=== PATIENT | female | born 1970 | race Caucasian/White ===

== ENCOUNTER 2025-03-14 07:26 | Outpatient (CLI) | payer OTHER, SELFPAY ==
--- OUTSIDE RECORDS SUMMARY | 2025-03-14 07:33 | XMS_ITS | Encounter Summary ---
Author Organization [employer] Address [address] [place] [address] Care Team Providers Care Medical Device Sales Consultant Name Role Phone Asher Hammonds MD Primary Care Provider Unavailab le Encounter Details Date Type Department Care Team (Late st Contact Info) Description 01/27/2000 Outpatient Historical [facility] Meka Jacome Social History Tobacco Use Types Packs/Day Years Used Date Smoking Tobacco: Never Assessed Comments Unknown Sex and Gender Information Value Date Recorded Sex Assigned at Not on file Legal Sex Female 5:11 AM MULTIMEDIA EDUCATIONAL SPECIALIST Gender Identity Not on file Sexual Orientation Not on file documented as of this encounter Plan of Treatment Not on file documented as of this encounter Visit Diagnoses Not on filedocumented in this encounter Care Teams Medical Device Sales Consultant Relationship Specialty Start Date End Date Asher Hammonds MD PCP - General 10/04/12 documented as of this encounter
--- OUTSIDE RECORDS SUMMARY | 2025-03-14 07:33 | XMS_ITS | Encounter Summary ---
Author Organization [employer] Address [address] [place] [address] Care Team Providers Care Real Estate Assistant Name Role Phone Asher Hammonds MD Primary Care Provider Unavailab le Encounter Details Date Type Department Care Team (Latest Contact Info) Description 08/14/2000 Outpatient Historical [facility] Bran Lomeli MD [address] [place] [id number] Obesity, unspecified (Primary Dx) Social History Tobacco Use Types Packs/Day Years Used Date Smoking Tobacco: Never Assessed Comments Unknown Sex and Gender Information Value Date Recorded Sex Assigned at Not on file Legal Sex Female 5:11 AM ASSORTER LAUNDRY Gender Identity Not on file Sexual Orientation Not on file documented as of this encounter Plan of Treatment Not on file documented as of this encounter Visit Diagnoses Diagnosis Obesity, unspecified- Primary documented in this encounter Care Teams Real Estate Assistant Relationship Specialty Start Date End Date Asher Hammonds MD PCP - General 10/04/12 documented as of this encounter
--- OUTSIDE RECORDS SUMMARY | 2025-03-14 07:33 | XMS_ITS | Encounter Summary ---
Author Organization [facility] Address [address] [place] [address] Care Team Providers Care Lithograph Designer Name Role Phone Asher Hammonds MD Primary Care Provider Unavailab le Encounter Details Date Type Department Care Team (Late st Contact Info) Description 10/24/2005 Outpatient Historical [facility] Medicine [place] [address] [address] [address] [place] [address] Asher Hammonds MD NO ADDRESS ON FILE Social History Tobacco Use Types Packs/Day Years Used Date Smoking Tobacco: Never Assessed Comments Unknown Sex and Gender Information Value Date Recorded Sex Assigned at Not on file Legal Sex Female 5:11 AM HEEL SCORER Gender Identity Not on file Sexual Orientation Not on file documented as of this encounter Last Filed Vital Signs Vital Sign Reading Time Taken Comments Blood Pressure 110/50 10/24/2005 3:01 PM HEEL SCORER Pulse 84 10/24/2005 3:01 PM HEEL SCORER Temperature 36.9 C (98.4 F) 10/24/2005 3:01 PM HEEL SCORER Respiratory Rate 16 10/24/2005 3:01 PM HEEL SCORER Oxygen Saturation - - Inhaled Oxygen Concentration - - Weight 80.3 kg (177 lb) 10/24/2005 3:01 PM HEEL SCORER Height 154.9 cm (5' 1) 10/24/2005 3:01 PM HEEL SCORER Body Mass Index 33.44 10/24/2005 3:01 PM HEEL SCORER documented in this encounter Plan of Treatment Not on file documented as of this encounter Visit Diagnoses Not on filedocumented in this encounter Care Teams Lithograph Designer Relationship Specialty Start Date End Date Asher Hammonds MD PCP - General 10/04/12 documented as of this encounter
--- OUTSIDE RECORDS SUMMARY | 2025-03-14 07:33 | XMS_ITS | Encounter Summary ---
Author Organization [facility] Address [address] [place] [address] Care Team Providers Care Softlines Supervisor Name Role Phone Asher Hammonds MD Primary Care Provider Unavailab le Encounter Details Date Type Department Care Team (Late st Contact Info) Description 11/27/2000 Outpatient Historical [facility] Medicine [place] [address] [place] [address] [address] [place] [address] Asher Hammonds MD NO ADDRESS ON FILE Social History Tobacco Use Types Packs/Day Years Used Date Smoking Tobacco: Never Assessed Comments Unknown Sex and Gender Information Value Date Recorded Sex Assigned at Not on file Legal Sex Female 5:11 AM SUMMER INTERNSHIP Gender Identity Not on file Sexual Orientation Not on file documented as of this encounter Plan of Treatment Not on file documented as of this encounter Visit Diagnoses Not on filedocumented in this encounter Care Teams Softlines Supervisor Relationship Specialty Start Date End Date Asher Hammonds MD PCP - General 10/04/12 documented as of this encounter
--- OUTSIDE RECORDS SUMMARY | 2025-03-14 07:33 | XMS_ITS | Encounter Summary ---
Author Organization [facility] Address [address] [place] [address] Care Team Providers Care Quality System Manager Name Role Phone Asher Hammonds MD Primary Care Provider Unavailab le Encounter Details Date Type Department Care Team (Late st Contact Info) Description 10/13/[address] [facility] Family Medicine [place] [address] [facility] [address] [place] [address] Dillan Chowdhury MD [address] [place] [address] Social History Tobacco Use Types Packs/Day Years Used Date Smoking Tobacco: Never Assessed Comments Unknown Sex and Gender Information Value Date Recorded Sex Assigned at Not on file Legal Sex Female 5:11 AM CELERY CUTTER Gender Identity Not on file Sexual Orientation Not on file documented as of this encounter Plan of Treatment Not on file documented as of this encounter Visit Diagnoses Not on filedocumented in this encounter Care Teams Quality System Manager Relationship Specialty Start Date End Date Asher Hammonds MD PCP - General 10/04/12 documented as of this encounter
--- OUTSIDE RECORDS SUMMARY | 2025-03-14 07:33 | XMS_ITS | Encounter Summary ---
Author Organization [employer] Address [address] [place] [address] Care Team Providers Care Raised Printer Name Role Phone Asher Hammonds MD Primary Care Provider Unavailab le Encounter Details Date Type Department Care Team (Late st Contact Info) Description 10/11/2000 Emergency [facility] Ulices Fitzgerald MD [address] [place] [address] [place] [address] Unspecified essential hypertension (Primary Dx) Social History Tobacco Use Types Packs/Day Years Used Date Smoking Tobacco: Never Assessed Comments Unknown Sex and Gender Information Value Date Recorded Sex Assigned at Not on file Legal Sex Female 5:11 AM ADVERTISING WRITER Gender Identity Not on file Sexual Orientation Not on file documented as of this encounter Plan of Treatment Not on file documented as of this encounter Visit Diagnoses Diagnosis Unspecified essential hypertension- Primary documented in this encounter Care Teams Raised Printer Relationship Specialty Start Date End Date Asher Hammonds MD PCP - General 10/04/12 documented as of this encounter
--- OUTSIDE RECORDS SUMMARY | 2025-03-14 07:33 | XMS_ITS | Encounter Summary ---
Author Organization [email or web address] Address [address] [place] [address] Care Team Providers Care Beverage Specialist Name Role Phone Asher Hammonds MD Primary Care Provider Unavailab le Encounter Details Date Type Department Care Team (Late st Contact Info) Description 04/09/1999 Outpatient Historical [facility] David Yasmani NO ADDRESS ON FILE Social History Tobacco Use Types Packs/Day Years Used Date Smoking Tobacco: Never Assessed Comments Unknown Sex and Gender Information Value Date Recorded Sex Assigned at Not on file Legal Sex Female 5:11 AM INNER DIAMETER GRINDER TOOL Gender Identity Not on file Sexual Orientation Not on file documented as of this encounter Plan of Treatment Not on file documented as of this encounter Visit Diagnoses Not on filedocumented in this encounter Care Teams Beverage Specialist Relationship Specialty Start Date End Date Asher Hammonds MD PCP - General 10/04/12 documented as of this encounter
--- OUTSIDE RECORDS SUMMARY | 2025-03-14 07:33 | XMS_ITS | Encounter Summary ---
Author Organization [employer] Address [address] [place] [address] Care Team Providers Care Staff Home Therapy Rn Name Role Phone Asher Hammonds MD Primary Care Provider Unavailab le Encounter Details Date Type Department Care Team (Late st Contact Info) Description 08/10/2000 Emergency [facility] EM[facility] WASH Loi Lewis MD NO ADDRESS ON FILE Bronchitis, not specified as acute or chronic (Primary Dx) Social History Tobacco Use Types Packs/Day Years Used Date Smoking Tobacco: Never Assessed Comments Unknown Sex and Gender Information Value Date Recorded Sex Assigned at Not on file Legal Sex Female 5:11 AM LIFE SKILLS SPECIALIST Gender Identity Not on file Sexual Orientation Not on file documented as of this encounter Plan of Treatment Not on file documented as of this encounter Visit Diagnoses Diagnosis Bronchitis, not specified as acute or chronic- Primary documented in this encounter Care Teams Staff Home Therapy Rn Relationship Specialty Start Date End Date Asher Hammonds MD PCP - General 10/04/12 documented as of this encounter
--- OUTSIDE RECORDS SUMMARY | 2025-03-14 07:33 | XMS_ITS | Encounter Summary ---
Author Organization [facility] Address [address] [place] [address] Care Team Providers Care Stone Polisher Hand Name Role Phone Asher aHmmonds MD Primary Care Provider Unavailab le Encounter Details Date Type Department Care Team (Late st Contact Info) Description 11/15/2000 Outpatient Historical [facility] Medicine [place] [address] [place] [address] [address] [place] [address] Asher Hammonds MD NO ADDRESS ON FILE Social History Tobacco Use Types Packs/Day Years Used Date Smoking Tobacco: Never Assessed Comments Unknown Sex and Gender Information Value Date Recorded Sex Assigned at Not on file Legal Sex Female 5:11 AM TANK CLEANING SUPERVISOR Gender Identity Not on file Sexual Orientation Not on file documented as of this encounter Plan of Treatment Not on file documented as of this encounter Visit Diagnoses Not on filedocumented in this encounter Care Teams Stone Polisher Hand Relationship Specialty Start Date End Date Asher Hammonds MD PCP - General 10/04/12 documented as of this encounter
--- OUTSIDE RECORDS SUMMARY | 2025-03-14 07:33 | XMS_ITS | Encounter Summary ---
Author Organization [facility] Address [address] [place] [address] Care Team Providers Care Cat Wagon Operator Name Role Phone Asher Hammonds MD Primary Care Provider Unavailab le Encounter Details Date Type Department Care Team (Late st Contact Info) Description 10/30/2000 Outpatient Historical [facility] Medicine [place] [address] [place] [address] [address] [place] [address] Asher Hammonds MD NO ADDRESS ON FILE Social History Tobacco Use Types Packs/Day Years Used Date Smoking Tobacco: Never Assessed Comments Unknown Sex and Gender Information Value Date Recorded Sex Assigned at Not on file Legal Sex Female 5:11 AM CLOCKMAKER APPRENTICE Gender Identity Not on file Sexual Orientation Not on file documented as of this encounter Plan of Treatment Not on file documented as of this encounter Visit Diagnoses Not on filedocumented in this encounter Care Teams Cat Wagon Operator Relationship Specialty Start Date End Date Asher Hammonds MD PCP - General 10/04/12 documented as of this encounter
--- OUTSIDE RECORDS SUMMARY | 2025-03-14 07:33 | XMS_ITS | Encounter Summary ---
Author Organization [employer] Address [address] [place] [address] Care Team Providers Care Brick Carrier Name Role Phone Asher Hammonds MD Primary Care Provider Unavailab le Encounter Details Date Type Department Care Team (Late st Contact Info) Description 01/14/1999 Outpatient Historical [facility] Inocencio Dooley MD [address] [facility] [address] [place] [address] Social History Tobacco Use Types Packs/Day Years Used Date Smoking Tobacco: Never Assessed Comments Unknown Sex and Gender Information Value Date Recorded Sex Assigned at Not on file Legal Sex Female 5:11 AM BINDERY TECHNICIAN Gender Identity Not on file Sexual Orientation Not on file documented as of this encounter Plan of Treatment Not on file documented as of this encounter Visit Diagnoses Not on filedocumented in this encounter Care Teams Brick Carrier Relationship Specialty Start Date End Date Asher Hammonds MD PCP - General 10/04/12 documented as of this encounter
--- OUTSIDE RECORDS SUMMARY | 2025-03-14 07:33 | XMS_ITS | Encounter Summary ---
Author Organization [facility] Address [address] [place] [address] Care Team Providers Care Sample Tailor Name Role Phone Asher Hammonds MD Primary Care Provider Unavailab le Encounter Details Date Type Department Care Team (Late st Contact Info) Description 12/14/2006 Outpatient Historical [facility] Medicine [place] [address] [place] [address] [address] [place] [address] Asher Hammonds MD NO ADDRESS ON FILE Social History Tobacco Use Types Packs/Day Years Used Date Smoking Tobacco: Never Assessed Comments Unknown Sex and Gender Information Value Date Recorded Sex Assigned at Not on file Legal Sex Female 5:11 AM BLOOD BANK ATTENDANT Gender Identity Not on file Sexual Orientation Not on file documented as of this encounter Last Filed Vital Signs Vital Sign Reading Time Taken Comments Blood Pressure 120/80 12/14/2006 4:15 PM CDT Pulse 100 12/14/2006 4:15 PM CDT Temperature 36.7 C (98 F) 12/14/2006 4:15 PM CDT Respiratory Rate 16 12/14/2006 4:15 PM CDT Oxygen Saturation - - Inhaled Oxygen Concentration - - Weight 99.3 kg (219 lb) 12/14/2006 4:15 PM CDT Height 157.5 cm (5' 2) 12/14/2006 4:15 PM CDT Body Mass Index 40.06 12/14/2006 4:15 PM CDT documented in this encounter Plan of Treatment Not on file documented as of this encounter Visit Diagnoses Not on filedocumented in this encounter Care Teams Sample Tailor Relationship Specialty Start Date End Date Asher Hammonds MD PCP - General 10/04/12 documented as of this encounter
--- OUTSIDE RECORDS SUMMARY | 2025-03-14 07:33 | XMS_ITS | Encounter Summary ---
Author Organization [facility] Address [address] [place] [address] Care Team Providers Care Dispatcher Chief Oil Name Role Phone Asher Hammonds MD Primary Care Provider Unavailab le Encounter Details Date Type Department Care Team (Late st Contact Info) Description 10/04/2005 Outpatient Historical [facility] Medicine [place] [address] [place] [address] [address] [place] [address] Asher Hammonds MD NO ADDRESS ON FILE Social History Tobacco Use Types Packs/Day Years Used Date Smoking Tobacco: Never Assessed Comments Unknown Sex and Gender Information Value Date Recorded Sex Assigned at Not on file Legal Sex Female 5:11 AM MATHEMATICIAN Gender Identity Not on file Sexual Orientation Not on file documented as of this encounter Last Filed Vital Signs Vital Sign Reading Time Taken Comments Blood Pressure 120/60 10/04/2005 4:15 PM MATHEMATICIAN Pulse 84 10/04/2005 4:15 PM MATHEMATICIAN Temperature 36.9 C (98.4 F) 10/04/2005 4:15 PM MATHEMATICIAN Respiratory Rate 16 10/04/2005 4:15 PM MATHEMATICIAN Oxygen Saturation - - Inhaled Oxygen Concentration - - Weight 78 kg (172 lb) 10/04/2005 4:15 PM MATHEMATICIAN Height 154.9 cm (5' 1) 10/04/2005 4:15 PM MATHEMATICIAN Body Mass Index 32.5 10/04/2005 4:15 PM MATHEMATICIAN documented in this encounter Plan of Treatment Not on file documented as of this encounter Visit Diagnoses Not on filedocumented in this encounter Care Teams Dispatcher Chief Oil Relationship Specialty Start Date End Date Asher Hammonds MD PCP - General 10/04/12 documented as of this encounter
--- OUTSIDE RECORDS SUMMARY | 2025-03-14 07:33 | XMS_ITS | Encounter Summary ---
Author Organization [facility] Address [address] [place] [address] Care Team Providers Care 8Th Grade Mathematics Teacher Name Role Phone Asher Hammonds MD Primary Care Provider Unavailab le Encounter Details Date Type Department Care Team (Late st Contact Info) Description 10/20/2000 Outpatient Historical [facility] Family Medicine [place] [address] [facility] [address] [place] [address] Honorio Washington MD [address] [place] [address] Social History Tobacco Use Types Packs/Day Years Used Date Smoking Tobacco: Never Assessed Comments Unknown Sex and Gender Information Value Date Recorded Sex Assigned at Not on file Legal Sex Female 5:11 AM FISH HATCHERY ASSISTANT Gender Identity Not on file Sexual Orientation Not on file documented as of this encounter Plan of Treatment Not on file documented as of this encounter Visit Diagnoses Not on filedocumented in this encounter Care Teams 8Th Grade Mathematics Teacher Relationship Specialty Start Date End Date Asher Hammonds MD PCP - General 10/04/12 documented as of this encounter
--- OUTSIDE RECORDS SUMMARY | 2025-03-14 07:33 | XMS_ITS | Encounter Summary ---
Author Organization [employer] Address [address] [place] [address] Care Team Providers Care Automotive Glass Installer Name Role Phone Asher Hammonds MD Primary Care Provider Unavailab le Encounter Details Date Type Department Care Team (Late st Contact Info) Description 04/14/1999 Outpatient Historical [facility]ARE Meka Jacome Social History Tobacco Use Types Packs/Day Years Used Date Smoking Tobacco: Never Assessed Comments Unknown Sex and Gender Information Value Date Recorded Sex Assigned at Not on file Legal Sex Female 5:11 AM RN BEHAVIORAL HEALTH Gender Identity Not on file Sexual Orientation Not on file documented as of this encounter Plan of Treatment Not on file documented as of this encounter Visit Diagnoses Not on filedocumented in this encounter Care Teams Automotive Glass Installer Relationship Specialty Start Date End Date Asher Hammonds MD PCP - General 10/04/12 documented as of this encounter
--- OUTSIDE RECORDS SUMMARY | 2025-03-14 07:33 | XMS_ITS | Encounter Summary ---
Author Organization [employer] Address [address] [place] [address] Care Team Providers Care Synthetic Soil Blocks Pulper Name Role Phone Asher Hammonds MD Primary Care Provider Unavailab le Encounter Details Date Type Department Care Team (Latest Contact Info) Description 08/21/2000 Outpatient Historical [facility] Bran Lomeli MD [address] [place] [id number] Obesity, unspecified (Primary Dx) Social History Tobacco Use Types Packs/Day Years Used Date Smoking Tobacco: Never Assessed Comments Unknown Sex and Gender Information Value Date Recorded Sex Assigned at Not on file Legal Sex Female 5:11 AM FOILING MACHINE OPERATOR Gender Identity Not on file Sexual Orientation Not on file documented as of this encounter Plan of Treatment Not on file documented as of this encounter Visit Diagnoses Diagnosis Obesity, unspecified- Primary documented in this encounter Care Teams Synthetic Soil Blocks Pulper Relationship Specialty Start Date End Date Asher Hammonds MD PCP - General 10/04/12 documented as of this encounter
--- OUTSIDE RECORDS SUMMARY | 2025-03-14 07:33 | XMS_ITS | Encounter Summary ---
Author Organization [facility] Address [address] [place] [address] Care Team Providers Care Pharmacy Operations Manager Name Role Phone Asher Hammonds MD Primary Care Provider Unavailab le Encounter Details Date Type Department Care Team (Late st Contact Info) Description 11/01/2005 Outpatient Historical [facility] Medicine [place] [address] [place] [address] [address] [place] [address] Asher Hammonds MD NO ADDRESS ON FILE Social History Tobacco Use Types Packs/Day Years Used Date Smoking Tobacco: Never Assessed Comments Unknown Sex and Gender Information Value Date Recorded Sex Assigned at Not on file Legal Sex Female 5:11 AM MAILER Gender Identity Not on file Sexual Orientation Not on file documented as of this encounter Last Filed Vital Signs Vital Sign Reading Time Taken Comments Blood Pressure 80/56 11/01/2005 4:15 PM MAILER Pulse 80 11/01/2005 4:15 PM MAILER Temperature 36.4 C (97.5 F) 11/01/2005 4:15 PM MAILER Respiratory Rate 16 11/01/2005 4:15 PM MAILER Oxygen Saturation - - Inhaled Oxygen Concentration - - Weight 82.1 kg (181 lb) 11/01/2005 4:15 PM MAILER Height 154.9 cm (5' 1) 11/01/2005 4:15 PM MAILER Body Mass Index 34.2 11/01/2005 4:15 PM MAILER documented in this encounter Plan of Treatment Not on file documented as of this encounter Visit Diagnoses Not on filedocumented in this encounter Care Teams Pharmacy Operations Manager Relationship Specialty Start Date End Date Asher Hammonds MD PCP - General 10/04/12 documented as of this encounter
--- OUTSIDE RECORDS SUMMARY | 2025-03-14 07:33 | XMS_ITS | Encounter Summary ---
Author Organization [facility] Address [address] [place] [address] Care Team Providers Care Employment Specialist/Program Manager Name Role Phone Asher Hammonds MD Primary Care Provider Unavailab le Encounter Details Date Type Department Care Team (Late st Contact Info) Description 11/08/2000 Outpatient Historical [facility] Medicine [place] [address] [place] [place] [address] [address] [place] [address] Asher Hammonds MD NO ADDRESS ON FILE Social History Tobacco Use Types Packs/Day Years Used Date Smoking Tobacco: Never Assessed Comments Unknown Sex and Gender Information Value Date Recorded Sex Assigned at Not on file Legal Sex Female 5:11 AM SALES ASSOCIATE FISHING Gender Identity Not on file Sexual Orientation Not on file documented as of this encounter Plan of Treatment Not on file documented as of this encounter Visit Diagnoses Not on filedocumented in this encounter Care Teams Employment Specialist/Program Manager Relationship Specialty Start Date End Date Asher Hammonds MD PCP - General 10/04/12 documented as of this encounter
--- OUTSIDE RECORDS SUMMARY | 2025-03-14 07:33 | XMS_ITS | Encounter Summary ---
Author Organization [employer] Address [address] [place] [address] Care Team Providers Care Mainspring Winder Name Role Phone Asher Hammonds MD Primary Care Provider Unavailab le Encounter Details Date Type Department Care Team (Late st Contact Info) Description 05/23/2000 Outpatient Historical [facility] Meka Jacome Social History Tobacco Use Types Packs/Day Years Used Date Smoking Tobacco: Never Assessed Comments Unknown Sex and Gender Information Value Date Recorded Sex Assigned at Not on file Legal Sex Female 5:11 AM ARCHIVES TECHNICIAN Gender Identity Not on file Sexual Orientation Not on file documented as of this encounter Plan of Treatment Not on file documented as of this encounter Visit Diagnoses Not on filedocumented in this encounter Care Teams Mainspring Winder Relationship Specialty Start Date End Date Asher Hammonds MD PCP - General 10/04/12 documented as of this encounter
--- OUTSIDE RECORDS SUMMARY | 2025-03-14 07:34 | XMS_ITS | Encounter Summary ---
Author Organization [employer] Address [address] [place] [address] Care Team Providers Care Financial Reporting Director Name Role Phone Asher Hammonds MD Primary Care Provider Unavailab le Encounter Details Date Type Department Care Team (Late st Contact Info) Description 08/11/2000 Outpatient Historical [facility] Primary Care Internal Medicine [address] [place] [address] Bran Lomeli MD [address] [place] [address] Social History Tobacco Use Types Packs/Day Years Used Date Smoking Tobacco: Never Assessed Comments Unknown Sex and Gender Information Value Date Recorded Sex Assigned at Not on file Legal Sex Female 5:11 AM PHOTO STUDIO ASSISTANT Gender Identity Not on file Sexual Orientation Not on file documented as of this encounter Plan of Treatment Not on file documented as of this encounter Visit Diagnoses Not on filedocumented in this encounter Care Teams Financial Reporting Director Relationship Specialty Start Date End Date Asher Hammonds MD PCP - General 10/04/12 documented as of this encounter
--- OUTSIDE RECORDS SUMMARY | 2025-03-14 07:34 | XMS_ITS | Encounter Summary ---
Author Organization [facility] Address [address] [place] [address] Care Team Providers Care Utility Worker Film Processing Name Role Phone Asher Hammonds MD Primary Care Provider Unavailab le Encounter Details Date Type Department Care Team (Late st Contact Info) Description 04/04/2007 Outpatient Historical [facility] Medicine [place] [address] [place] [address] [address] [place] [phone] Asher Hammonds MD NO ADDRESS ON FILE Social History Tobacco Use Types Packs/Day Years Used Date Smoking Tobacco: Never Assessed Comments Unknown Sex and Gender Information Value Date Recorded Sex Assigned at Not on file Legal 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 Gender Identity Not on file Sexual Orientation Not on file documented as of this encounter Last Filed Vital Signs Vital Sign Reading Time Taken Comments Blood Pressure 120/78 04/04/2007 4:15 PM CDT Pulse 88 04/04/2007 4:15 PM CDT Temperature 36.3 C (97.4 F) 04/04/2007 4:15 PM CDT Respiratory Rate 16 04/04/2007 4:15 PM CDT Oxygen Saturation - - Inhaled Oxygen Concentration - - Weight 98 kg (216 lb) 04/04/2007 4:15 PM CDT Height 152.4 cm (5') 04/04/2007 4:15 PM CDT Body Mass Index 42.18 04/04/2007 4:15 PM CDT documented in this encounter Plan of Treatment Not on file documented as of this encounter Visit Diagnoses Not on filedocumented in this encounter Care Teams Utility Worker Film Processing Relationship Specialty Start Date End Date Asher Hammonds MD PCP - General 10/04/12 documented as of this encounter
--- OUTSIDE RECORDS SUMMARY | 2025-03-14 07:34 | XMS_ITS | Encounter Summary ---
Author Organization [facility] Address [address] [place] [address] Care Team Providers Care Geomagnetician Name Role Phone Asher Hammonds MD Primary Care Provider Unavailab le Encounter Details Date Type Department Care Team (Late st Contact Info) Description 03/09/2007 Orders Only 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 WHO TOOK THE CALL: Mauricio Adan GENERAL INFORMATION LAST VISIT: 03/07/2007 WHO CALLED: Pharmacy called. CURRENT ALLERGY LIST: MACROBID PCN SULFA DRUGS PHARMACY NUMBER: [facility] [phone] SECTION 1: REQUESTED ACTION [email or web address] 03/09/07 at 01:07 pm: MEDICATION REQUEST: Patient requesting something to be called in for her spider bite.PAtient c/o ofitching with a burning feeling. DOCTOR`S RESPONSE: [email or web address] 03/12/07 at 02:27 am MEDICATIONS: ACYCLOVIR ORAL TABLET 800 MG, 1 po 5 times a day for 7 days, 35 Dispensed, 5 Fills, 7 Duration/DaysSupply, status: NEW PRESCRIPTION, 03/09/2007. FINAL ACTION: [email or web address] 03/12/07 at 12:52 pm Called pharmacy at 03/12/07 at 12:52 pm. auto refill line Electronically Signed by: Blanca Stahl on Monday, March 12, 2007 documented in this encounter Plan of Treatment Not on file documented as of this encounter Visit Diagnoses Not on filedocumented in this encounter Care Teams Geomagnetician Relationship Specialty Start Date End Date Asher Hammonds MD PCP - General 10/04/12 documented as of this encounter
--- OUTSIDE RECORDS SUMMARY | 2025-03-14 07:34 | XMS_ITS | Encounter Summary ---
Author Organization [facility] Address [address] [place] [address] Care Team Providers Care Sap Fico Business Analyst Name Role Phone Asher Hammonds MD Primary Care Provider Unavailab le Encounter Details Date Type Department Care Team (Late st Contact Info) Description 04/06/2007 Orders Only [facility] Medicine [place] [address] [facility] [address] [place] [address] Dejah Varma NP [address] [place] [address] Social History Tobacco Use Types Packs/Day Years Used Date Smoking Tobacco: Never Assessed Comments Unknown Sex and Gender Information Value Date Recorded Sex Assigned at Not on file Legal 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 PHARMACY NUMBER: [facility] [phone] PROBLEMS: Has had symptoms for past 2-3 days Wants something for this symptoms. DIARRHEA:Patient complains of diarrhea. FEVER: Patient complains of fever. NAUSEA: Patient complains of nausea. PAIN: Patient complains of abdominal pain. SECTION 1: REQUESTED ACTION [email or web address] 04/06/07 at 10:34 am: Please call in something for her DOCTOR`S RESPONSE: [email or web address] 04/06/07 at 11:47 am MEDICATIONS: Call in to Pharmacy PROMETHAZINE HCL ORAL TABLET 25 MG, 1 tab po qid prn nausea, 20 Dispensed, status: NEW PRESCRIPTION, 04/06/2007. Please call pharmacy Spoke with patient and instructed patient appropriately. FINAL ACTION: janis 04/06/07 at 11:56 am Called pharmacy at 04/06/07 at 11:56 am. Called to auto line. Electronically Signed by: XOCHILT Arredondo on Friday, April 06, 2007 Electronically Signed by: Daphne Lassiter on Friday, April 06, 2007 documented in this encounter Plan of Treatment Not on file documented as of this encounter Visit Diagnoses Not on filedocumented in this encounter Care Teams Sap Fico Business Analyst Relationship Specialty Start Date End Date Asher Hammonds MD PCP - General 10/04/12 documented as of this encounter
--- OUTSIDE RECORDS SUMMARY | 2025-03-14 07:34 | XMS_ITS | Encounter Summary ---
Author Organization [facility] Address [address] [place] [address] Care Team Providers Care Turntable Worker Name Role Phone Asher Hammonds MD Primary Care Provider Unavailab le Encounter Details Date Type Department Care Team (Late st Contact Info) Description 12/19/2005 Outpatient Historical [facility] Medicine [place] [address] [place] [address] [address] [place] [address] Asher Hammonds MD NO ADDRESS ON FILE Social History Tobacco Use Types Packs/Day Years Used Date Smoking Tobacco: Never Assessed Comments Unknown Sex and Gender Information Value Date Recorded Sex Assigned at Not on file Legal Sex Female 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 Gender Identity Not on file Sexual Orientation Not on file documented as of this encounter Last Filed Vital Signs Vital Sign Reading Time Taken Comments Blood Pressure 110/60 12/19/2005 3:45 PM CDT Pulse 84 12/19/2005 3:45 PM CDT Temperature 35.9 C (96.7 F) 12/19/2005 3:45 PM CDT Respiratory Rate 16 12/19/2005 3:45 PM CDT Oxygen Saturation - - Inhaled Oxygen Concentration - - Weight 85.7 kg (189 lb) 12/19/2005 3:45 PM CDT Height 154.9 cm (5' 1) 12/19/2005 3:45 PM CDT Body Mass Index 35.71 12/19/2005 3:45 PM CDT documented in this encounter Plan of Treatment Not on file documented as of this encounter Visit Diagnoses Not on filedocumented in this encounter Care Teams Turntable Worker Relationship Specialty Start Date End Date Asher Hammonds MD PCP - General 10/04/12 documented as of this encounter
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
--- OUTSIDE RECORDS SUMMARY | 2025-03-14 07:34 | XMS_ITS | Encounter Summary ---
Author Organization [facility] Address [address] [place] [address] Care Team Providers Care Basketballs And Footballs Reverser Name Role Phone Asher Hammonds MD Primary Care Provider Unavailab le Encounter Details Date Type Department Care Team (Late st Contact Info) Description 11/28/2005 Outpatient Historical [facility] Medicine [place] [address] [place] [address] [address] [place] [address] Asher Hammonds MD NO ADDRESS ON FILE Social History Tobacco Use Types Packs/Day Years Used Date Smoking Tobacco: Never Assessed Comments Unknown Sex and Gender Information Value Date Recorded Sex Assigned at Not on file Legal Sex Female 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 CHECKER/STOCKER Gender Identity Not on file Sexual Orientation Not on file documented as of this encounter Last Filed Vital Signs Vital Sign Reading Time Taken Comments Blood Pressure 110/68 11/28/2005 4:15 PM CDT Pulse 84 11/28/2005 4:15 PM CDT Temperature 36.7 C (98.1 F) 11/28/2005 4:15 PM CDT Respiratory Rate 16 11/28/2005 4:15 PM CDT Oxygen Saturation - - Inhaled Oxygen Concentration - - Weight 83.9 kg (185 lb) 11/28/2005 4:15 PM CDT Height 154.9 cm (5' 1) 11/28/2005 4:15 PM CDT Body Mass Index 34.96 11/28/2005 4:15 PM CDT documented in this encounter Plan of Treatment Not on file documented as of this encounter Visit Diagnoses Not on filedocumented in this encounter Care Teams Basketballs And Footballs Reverser Relationship Specialty Start Date End Date Asher Hammonds MD PCP - General 10/04/12 documented as of this encounter
--- OUTSIDE RECORDS SUMMARY | 2025-03-14 07:35 | XMS_ITS | Encounter Summary ---
Author Organization [facility] Address [address] [place] [address] Care Team Providers Care Gaming Floor Supervisor Name Role Phone Asher Hammonds MD Primary Care Provider Unavailab le Encounter Details Date Type Department Care Team (Late st Contact Info) Description 12/21/2006 Orders Only [facility] Medicine [place] [address] [place] [address] [address] [place] [address] Asher Hammonds MD NO ADDRESS ON FILE Social History Tobacco Use Types Packs/Day Years Used Date Smoking Tobacco: Never Assessed Comments Unknown Sex and Gender Information Value Date Recorded Sex Assigned at Not on file Legal Sex Female 5:11 AM INTERNATIONAL FIRST OFFICER Gender Identity Not on file Sexual Orientation Not on file documented as of this encounter Plan of Treatment Not on file documented as of this encounter Visit Diagnoses Not on filedocumented in this encounter Care Teams Gaming Floor Supervisor Relationship Specialty Start Date End Date Asher Hammonds MD PCP - General 10/04/12 documented as of this encounter
--- OUTSIDE RECORDS SUMMARY | 2025-03-14 07:35 | XMS_ITS | Encounter Summary ---
Author Organization [facility] Address [address] [place] [address] Care Team Providers Care French Translator Name Role Phone Asher Hammonds MD Primary Care Provider Unavailab le Encounter Details Date Type Department Care Team (Late st Contact Info) Description 08/27/2003 Outpatient Historical 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
--- OUTSIDE RECORDS SUMMARY | 2025-03-14 07:35 | XMS_ITS | Encounter Summary ---
Author Organization [facility] Address [address] [place] [address] Care Team Providers Care Numerical Control Nesting Operator Name Role Phone Asher Hammonds MD Primary Care Provider Unavailab le Encounter Details Date Type Department Care Team (Late st Contact Info) Description 01/11/[address] 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 BLOOD PRESSURE: 124/70. Right Arm Sitting PULSE: 84. Right Radial, Regular RESPIRATIONS: 16. TEMPERATURE: 99??f. Tympanic HEIGHT: 5ft2in. ALLERGIES: Allergies were reviewed. MEDICATIONS: Medications may have changed. Dr to review medications. TOBACCO USE: Patient does not currently use tobacco. CHIEF COMPLAINT Patient here for medication management, anxiety, depression.Also re-evaluate bite left hand between her fingers--still on cipro and doxycycline HISTORY: HISTORY: 300.00-ANXIETY The condition remains stable. The patient has symptoms of irritability, has symptomsof feeling overwhelmed, has anxiety, has compulsions. No complications noted from the medication presently being used. 300.7-WJUGWHMAM-TRLSVJWKEH DISORDERS The condition remains stable. The patient has symptoms of moodchange, has symptoms of fatigue, has symptoms of feeling overwhelmed, has anxiety, has symptoms of excessive worry. 300.4-NEUROTIC DISORDERS The condition remains stable. The patient has symptoms of feeling depressed, has symptoms of irritability, has symptoms of elevated mood, has crying episodes. 780.50-SLEEP DISTURBANCE UNSPECIFIED --stable--wakes herself up talking every night--wakes up everymorning at 6 am and does not feel rested CURRENT PROBLEM LIST: 300.00 ANXIETY 300.3 OBSESSIVE-COMPULSIVE [...] BY OTHER AND UNSPECIFIED DRUGS AND MEDIC V06.5 NEED FOR VACC TETANUS-DIPHTHERIA (TD) V58.69 PENITENTIARY USE OF OTHER MEDICATION(S) CURRENT MEDICATION LIST: [...] 80 MG, 1 Every Day At Bedtime XANAX ORAL TABLET 2 MG, 1/2 to 1 tablet po every six hours SEROQUEL ORAL TABLET 100 MG, 3 Every Day At Bedtime CYMBALTA ORAL CAPSULE ENTERIC COATED 60 MG, 1 Every Morning WELLBUTRIN SR ORAL TABLET 12 HR 150 MG, 1 Two Times A Day DOXYCYCLINE HYCLATE ORAL CAPSULE CONVENTIONAL 100 MG, 1 Two Times A Day CIPRO ORAL TABLET 500 MG, 1 Two Times A Day CURRENT ALLERGY LIST: MACROBID PCN SULFA DRUGS [...] or hematochezia.. Patient's history reviewed; no changes. SOCIAL HISTORY: MARITAL HISTORY: MARITAL STATUS: TOBACCO USE: DISCUSSED SMOKING: non smoker. 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 PHYSICAL EXAMINATION: CONSTITUTIONAL: GENERAL APPEARANCE: Healthy appearing [...] nodularity. Kidneys not palpable. MUSCULOSKELETAL EXAM: GAIT/STATION: DIGITS/NAILS: No clubbing, cyanosis, inflammation, or ischemia. HEAD AND NECK: Normal to inspection and palpation with satisfactory range of motion. Strength adequate with normal stability. SPINE/RIBS/PELVIS: No kyphosis, lordosis, full range of motion. Normal stability, strength and tone. EXTREMITIES: BILATERAL LOWER: No misalignment or tenderness. Full range of motion. Normal stability, strength and tone. ASSESSMENT/PLAN: 300.00-ANXIETY ASSESSMENT: The patient's anxiety remains stable. 300.8-ORDFOCFSK-TCTXNAXDDP DISORDERS ASSESSMENT: The patient's obsessive-compulsive behavior remain stable. MEDICATIONS: CYMBALTA ORAL CAPSULE ENTERIC COATED 60 MG, 1 Every Morning, 42 Dispensed, 42 Duration/Days Supply,42 samples given, status: NEW PRESCRIPTION, 12/14/2006. WELLBUTRIN SR ORAL TABLET 12 HR 150 MG, 1 Two Times A Day, 60 Dispensed, 5 Fills, 30 Duration/Days Supply, status: NEW PRESCRIPTION, 12/21/2006. 780.52-INSOMNIA ASSESSMENT: The patient's insomnia continues to remain stable. MEDICATIONS: XANAX ORAL TABLET 2 MG, 1/2 to 1 tablet po every six hours, 60 Dispensed, 1 Fills, 30 Duration/DaysSupply, status: CONTINUED, 12/14/2006. HYDROXYZINE HCL ORAL TABLET 50 MG, 2 Every Day At Bedtime, 60 Dispensed, 5 Fills, 30 Duration/Days Supply, status: CONTINUED, 07/18/2006. 784.0-HEADACHE ASSESSMENT: The patient's headaches are stable. RETURN VISIT: Patient instructed to return in 2 months. Electronically Signed by: Asher Hammonds MD on Tuesday, January 16, 2007 documented in this encounter Plan of Treatment Not on file documented as of this encounter Visit Diagnoses Not on filedocumented in this encounter Care Teams Numerical Control Nesting Operator Relationship Specialty Start Date End Date Asher Hammonds MD PCP - General 10/04/12 documented as of this encounter
--- OUTSIDE RECORDS SUMMARY | 2025-03-14 07:35 | XMS_ITS | Encounter Summary ---
Author Organization [facility] Address [address] [place] [address] Care Team Providers Care Technology Training Associate Name Role Phone Asher Hammonds MD Primary Care Provider Unavailab le Encounter Details Date Type Department Care Team (Late st Contact Info) Description 01/11/2007 Outpatient Historical [facility] Medicine [place] [address] [place] [address] [address] [place] [phone] Asher Hammonds MD NO ADDRESS ON FILE Social History Tobacco Use Types Packs/Day Years Used Date Smoking Tobacco: Never Assessed Comments Unknown Sex and Gender Information Value Date Recorded Sex Assigned at Not on file 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 Gender Identity Not on file Sexual Orientation Not on file documented as of this encounter Last Filed Vital Signs Vital Sign Reading Time Taken Comments Blood Pressure 124/70 01/11/2007 4:15 PM CDT Pulse 84 01/11/2007 4:15 PM CDT Temperature 37.2 C (99 F) 01/11/2007 4:15 PM CDT Respiratory Rate 16 01/11/2007 4:15 PM CDT Oxygen Saturation - - Inhaled Oxygen Concentration - - Weight 99.3 kg (219 lb) 01/11/2007 4:15 PM CDT Height 157.5 cm (5' 2) 01/11/2007 4:15 PM CDT Body Mass Index 40.06 01/11/2007 4:15 PM CDT documented in this encounter Plan of Treatment Not on file documented as of this encounter Visit Diagnoses Not on filedocumented in this encounter Care Teams Technology Training Associate Relationship Specialty Start Date End Date Asher Hammonds MD PCP - General 10/04/12 documented as of this encounter
--- OUTSIDE RECORDS SUMMARY | 2025-03-14 07:35 | XMS_ITS | Encounter Summary ---
Author Organization [facility] Address [address] [place] [address] Care Team Providers Care Clin Asst Name Role Phone Asher Hammonds MD Primary Care Provider Unavailab le Encounter Details Date Type Department Care Team (Late st Contact Info) Description 05/01/2007 Outpatient Historical [facility] Medicine [place] [address] [place] [address] [address] [place] [address] Asher Hammonds MD NO ADDRESS ON FILE Social History Tobacco Use Types Packs/Day Years Used Date Smoking Tobacco: Never Assessed Comments Unknown Sex and Gender Information Value Date Recorded Sex Assigned at Not on file 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 Gender Identity Not on file Sexual Orientation Not on file documented as of this encounter Last Filed Vital Signs Vital Sign Reading Time Taken Comments Blood Pressure 110/80 05/01/2007 4:15 PM CDT Pulse 84 05/01/2007 4:15 PM CDT Temperature 37 C (98.6 F) 05/01/2007 4:15 PM CDT Respiratory Rate 16 05/01/2007 4:15 PM CDT Oxygen Saturation - - Inhaled Oxygen Concentration - - Weight 98.9 kg (218 lb) 05/01/2007 4:15 PM CDT Height 152.4 cm (5') 05/01/2007 4:15 PM CDT Body Mass Index 42.58 05/01/2007 4:15 PM CDT documented in this encounter Plan of Treatment Not on file documented as of this encounter Visit Diagnoses Not on filedocumented in this encounter Care Teams Clin Asst Relationship Specialty Start Date End Date Asher Hammonds MD PCP - General 10/04/12 documented as of this encounter
--- OUTSIDE RECORDS SUMMARY | 2025-03-14 07:35 | XMS_ITS | Encounter Summary ---
Author Organization [facility] Address [address] [place] [address] Care Team Providers Care Earth Moving Technician Name Role Phone Asher Hammonds MD Primary Care Provider Unavailab le Encounter Details Date Type Department Care Team (Latest Contact Info) Description 02/09/2006 Inpatient Historical [facility] [place] [address] [place] [address] Anxiety State, Unspecified (Primary Dx); Depressive Disorder, not Elsewhere Classified; Nondependent Sedative, Hypnotic or Anxiolytic Abuse, Unspecified (CMS/HCC); Other, Mixed, or Unspecified Nondependent Drug Abuse, Unspecified (CMS/HCC) Social History Tobacco Use Types Packs/Day Years Used Date Smoking Tobacco: Never Assessed Comments Unknown Sex and Gender Information Value Date Recorded Sex Assigned at Not on file Legal Sex Female 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 Gender Identity Not on file Sexual Orientation Not on file documented as of this encounter Plan of Treatment Not on file documented as of this encounter Procedures Procedure Name Priority Date/Time Associated Diagnosis Comments PT AND APTT Routine 02/08/2006 10:04 PM CDT CBC WITH DIFFERENTIAL Routine 02/08/2006 10:04 PM CDT CBC WITH DIFFERENTIAL Routine 02/08/2006 10:04 PM CDT ACETAMINOPHEN LEVEL Routine 02/08/2006 1 0:04 PM CDT DRUG SCREEN, URINE Routine 02/08/2006 8: 02 PM CDT HCG QUALITATIVE, URINE Routine 6 8:02 PM CDT documented in this encounter Results * CBC WITH DIFFERENTIAL (02/08/2006 10:04 PM CDT) NEUTROPHILS 60 45 - 70 % INTERFAC E SYSTEM LYMPHOCYTES 30 16 - 45 % INTERFAC E SYSTEM MONOCYTES 7 3 - 13 % INTERFACE SYSTEM EOSINOPHILS 3 0 - 7 % INTERFAC E SYSTEM BASOPHILS 1 0 - 2 % INTERFACE SYSTEM NEUTROPHIL ABSOLUTE 4.22 1.90 - 7.00 K/uL INTERFACE SYSTEM LYMPHOCYTE ABSOLUTE 2.12 0.70 - 4.50 K/uL INTERFACE SYSTEM MONOCYTE ABSOLUTE 0.47 0.10 - 1.30 K/uL INTERFACE SYSTEM EOSINOPHIL ABSOLUTE 0.18 0.00 - 0.70 K/uL INTERFACE SYSTEM BASOPHILS ABSOLUTE 0.06 0.00 - 0.20 K/uL INTERFACE SYSTEM 02/08/2006 10:0 4 PM CDT Oscar Koehler MD HEMATOLOGY ORDERABLES Final Re sult INTERFACE SYSTEM Refer to clinic/hospital department * (ABNORMAL) CBC WITH DIFFERENTIAL (02/08/2006 10:04 PM CDT) Pathologist [facility] WBC 7.1 4.0 - 9.8 K/uL INTERFACE SYSTEM RBC 4.13 3.90 - 4.90 M/uL INTERFACE SYSTEM HEMOGLOBIN 11.3(L) 11.8 - 14.8 g/dL INTERFACE SYSTEM HEMATOCRIT 33.9(L) 35.5 - 44.0 % INTERFACE SYSTEM MCV 82.1 82.0 - 99.0 fL INTERFACE SYSTEM MCH 27.4 27.2 - 32.6 pg INTERFACE SYSTEM MCHC 33.3 31.5 - 35.5 % INTERFACE SYSTEM RDW 15.1(H) 11.5 - 14.5 % INTERFACE SYSTEM RDW-STDEV 45.4 37.1 - 48.7 fL INTERFACE SYSTEM PLATELETS 329 140 - 350 K/uL INTERFACE SYSTEM MPV 8.6(L) 9.3 - 12.4 fL INTERFACE SYSTEM 02/08/2006 10:0 4 PM CDT Oscar Koehler MD HEMATOLOGY ORDERABLES Final Re sult Performing Organization Address [facility] Phone Number INTERFACE SYSTEM Refer to clinic/hospital department * PT AND APTT (02/08/2006 10:04 PM CDT) PROTIME 14.3 12.7 - 15.1 Seconds INTERFACE SYSTEM INR 1.0 0.9 - 1.1 INTERFACE SYSTEM Comment: INR Therapeutic Range: Adult: 2.0 - 3.0 for pulmonary embolism or prophylaxis against venous thrombosis or systemic embolization. 2.0 - 3.0 for patients with tissue heart valves. 2.5 - 3.5 for patients with mechanical heart valves or post [place]. Pediatric (12 years and under): 1.5 - 3.0 Although the target range in children is not well established , INR values of 1.5 - 3.0 are recommended for most patients. Higher values have been used in children with prosthetic cardiac valves and hereditary clotting disorders. (<3 days) therapeutic ranges have not been established. PTT 30.9 24.4 - 36.4 Seconds INTERFACE SYSTEM Comment: PTT Therapeutic Range: Heparin Level PTT (seconds) <0.10 units/mL <53 0.10 - 0.30 units/mL 53 - 67 0.30 - 0.70 units/mL* 67 - 95* 0.70 - 1.00 units/mL 95 - 116 *corresponds to therapeutic range for unfractionated heparin 02/08/2006 10:0 4 PM CDT Oscar Koehler MD HEMATOLOGY ORDERABLES Final Re sult Performing Organization Address [facility] Phone Number INTERFACE SYSTEM Refer to clinic/hospital department * (ABNORMAL) ACETAMINOPHEN LEVEL (02/08/2006 10:04 PM CDT) ACETAMINOPHEN LEVEL 40.7(H) 10.0 - 20.0 ug/mL INTERFACE SYSTEM 02/08/2006 10:0 4 PM CDT Oscar Koehler MD CHEMISTRY ORDERABLES Final Res ult Performing Organization Address [facility] Phone Number INTERFACE SYSTEM Refer to clinic/hospital department * HCG QUALITATIVE, URINE (02/08/2006 8:02 PM CDT) HCG QUAL URINE Negative Negative INTERFACE SYSTEM Comment:Urine resu lts may be falsely negative due to low specific gravity. SPECIFIC GRAVITY UA 1.007 1.001 - 1.035 INTERFACE SYSTEM HCG QUAL URINE COMMENT See Below. INTERFACE SYSTEM Comment:Urine resu lts may be falsely negative due to low specific gravity. 02/08/2006 8:02 PM CDT Oscar Koehler MD URINE ORDERABLES Final Result INTERFACE SYSTEM Refer to clinic/hospital department * DRUG SCREEN, URINE (02/08/2006 8:02 PM CDT) COMMENT, TOXICOLOGY See Separate Comment INTERFACE SYSTEM Comment: Urine sample was not handled as a legal specimen and was received without a chain of custody. The result should be used only for medical purposes. False positive and erroneous results can occur due to cross-reacting sub stances and other factors. Depending on the clinical context, confirmation of all presumptive positive results by a more specific alternate method is recommended. A negative result indicates the analyte, if present, is below the screening threshold. Drug Ref. Range Screening Threshold Amphetamines Negative 1000 ng/mL Barbituates Negative 200 ng/mL Benzodiazepines Negative 300 ng/mL Cannabinoids Negative 50 ng/mL Cocaine Metabolites Negative 300 ng/mL Opiates Negative 300 ng/mL Phencycldine Negative 25 ng/mL The cut-off threshold, known cross-reactive compounds, drugs,and specificity information for each of the urine drugs of abuse are available on the [facility] Intranet at: [email or web address] Select: Drugs of Abuse ? [facility] To inquire about any potential cross-reactivity of a specific drug not listed at this site, please contact the Chemistry Lab at . AMPHETAMINE QUAL, URINE Negative INTERFACE SYSTEM BARBITURATE QUAL, URINE Presumptive Positive INTERFACE SYSTEM BENZODIAZEPINE QUAL, URINE Presumptive Positive INTERFACE SYSTEM CANNABINOIDS QUAL, URINE Negative INTERFACE SYSTEM COCAINE QUAL URINE Negative INTERFACE SYSTEM OPIATE QUAL, URINE Negative INTERFACE SYSTEM PCP QUAL, URINE Negative INTE RFACE SYSTEM 02/08/2006 8:02 PM CDT us Historical Provider URINE ORDERABLES Final Resul t INTERFACE SYSTEM Refer to clinic/hospital department documented in this encounter Visit Diagnoses Diagnosis Anxiety state, unspecified- Primary Depressive disorder, not elsewhere classified Sedative, hypnotic or anxiolytic abuse, unspecified Other, mixed, or unspecified nondependent drug abuse, unspecified documented in this encounter Care Teams Earth Moving Technician Relationship Specialty Start Date End Date Asher Hammonds MD PCP - General 10/04/12 documented as of this encounter
--- OUTSIDE RECORDS SUMMARY | 2025-03-14 07:35 | XMS_ITS | Encounter Summary ---
Author Organization [facility] Address [address] [place] [address] Care Team Providers Care Business Development Coordinator Name Role Phone Asher Hammonds MD Primary Care Provider Unavailab le Encounter Details Date Type Department Care Team (Late st Contact Info) Description 02/13/2003 Outpatient Historical [facility] Medicine [place] [address] [place] [address] [address] [place] [address] Asher Hammonds MD NO ADDRESS ON FILE Social History Tobacco Use Types Packs/Day Years Used Date Smoking Tobacco: Never Assessed Comments Unknown Sex and Gender Information Value Date Recorded Sex Assigned at Not on file 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
--- OUTSIDE RECORDS SUMMARY | 2025-03-14 07:35 | XMS_ITS | Encounter Summary ---
Author Organization [facility] Address [address] [facility] [place] [address] Care Team Providers Care E Tailer Name Role Phone Asher Hammonds MD Primary Care Provider Unavailab le Encounter Details Date Type Department Care Team (Late st Contact Info) Description 01/30/2007 Emergency [facility] Luis Angel Chaudhry MD [address] [place] [address] [place] [address] Unspecified Viral Exanthem (Primary Dx) Social History Tobacco Use Types Packs/Day Years Used Date Smoking Tobacco: Never Assessed Comments Unknown Sex and Gender Information Value Date Recorded Sex Assigned at Not on file 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
--- OUTSIDE RECORDS SUMMARY | 2025-03-14 07:35 | XMS_ITS | Encounter Summary ---
Author Organization [email or web address] Address [address] [place] [address] Care Team Providers Care Multiple Spindle Router Operator Name Role Phone Asher Hammonds MD Primary Care Provider Unavailab le Encounter Details Date Type Department Care Team (Late st Contact Info) Description 01/02/2007 Emergency [facility] Gonzalez Frankel [facility] [address] [facility] 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
--- OUTSIDE RECORDS SUMMARY | 2025-03-14 07:35 | XMS_ITS | Encounter Summary ---
Author Organization [facility] Address [address] [place] [address] Care Team Providers Care Certified Surgical Assistant Name Role Phone Asher Hammonds MD Primary Care Provider Unavailab le Encounter Details Date Type Department Care Team (Late st Contact Info) Description 10/28/2002 Outpatient Historical [facility] Medicine [place] [address] [place] [address] [address] [place] [address] Asher Hammonds MD NO ADDRESS ON FILE Social History Tobacco Use Types Packs/Day Years Used Date Smoking Tobacco: Never Assessed Comments Unknown Sex and Gender Information Value Date Recorded Sex Assigned at Not on file Legal Sex Female 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
--- OUTSIDE RECORDS SUMMARY | 2025-03-14 07:35 | XMS_ITS | Encounter Summary ---
Author Organization [facility] Address [address] [place] [address] Care Team Providers Care Medical Claims Examiner Name Role Phone Asher Hammonds MD Primary Care Provider Unavailab le Encounter Details Date Type Department Care Team (Late st Contact Info) Description 12/28/2000 Outpatient Historical [facility] Medicine [place] [address] [place] [address] [address] [place] [address] Asher Hammonds MD NO ADDRESS ON FILE Social History Tobacco Use Types Packs/Day Years Used Date Smoking Tobacco: Never Assessed Comments Unknown Sex and Gender Information Value Date Recorded Sex Assigned at Not on file 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
--- OUTSIDE RECORDS SUMMARY | 2025-03-14 07:35 | XMS_ITS | Encounter Summary ---
Author Organization [facility] Address 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 BLOOD PRESSURE: 110/70. Right Arm Sitting PULSE: 80. Right Radial, Regular RESPIRATIONS: 16. TEMPERATURE: 97.1??f. Tympanic HEIGHT: 5ft2in. ALLERGIES: Allergies were reviewed. MEDICATIONS: Medications may have changed. Dr to review medications. TOBACCO USE: Patient does not currently use tobacco. CHIEF COMPLAINT Patient here for medication management.Advised possible psych referral or even counselor ghislaine.--patient states she has seen several different doctor's and she does not connect with them.? HISTORY: HISTORY: 300.00-ANXIETY The condition has worsened. The patient has symptoms of feeling depressed, has symptoms of irritability, has crying episodes, has a loss of interest in usual activities, has a change in sleep pattern, has symptoms of fatigue, has feelings of worthlessness. No complications noted fromthe medication presently being used.--states Javier she was having a bad day-- 300.7-PDIHXZOME-BHIZOVIJCU DISORDERS The condition remains stable. The patient has symptoms of moodchange, has symptoms of fatigue, has symptoms of feeling overwhelmed, has anxiety, has symptoms of excessive worry. 300.4-NEUROTIC DISORDERS The condition has worsened. The patient has anxiety. No complications noted from the medication presently being used. 780.50-SLEEP DISTURBANCE UNSPECIFIED --wakes up thru the night with vivid dreaming--states she dreams stories 780.52-INSOMNIA The insomnia has worsened. The patient continues to experience lack of sleep. No complications noted from the medication presently being used. 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 No major weight gain or loss. Nomalaise, chills, fever, diaphoresis.. ENT: No hearing loss, [...] EYES: CONJUNCTIVAE/LIDS: Conjunctivae and lids appear normal. EARS, NOSE, MOUTH AND THROAT: EARS: Tympanic membranes shiny without retraction. Canals [...] hepatosplenomegaly, tenderness or nodularity. Kidneys not palpable. ASSESSMENT/PLAN: 300.2-TIFXEHWDY-KRQECRNDTO DISORDERS ASSESSMENT: The patient's obsessive-compulsive behavior remain stable.have recommended again that she see a psychiatrist and a psychologist for further eval and care MEDICATIONS: CYMBALTA ORAL CAPSULE ENTERIC COATED 60 MG, 1 Two Times A Day, 60 Dispensed, 30 Duration/Days Supply, 60 samples given, status: NEW PRESCRIPTION, 02/05/2007. 300.4-NEUROTIC DISORDERS ASSESSMENT: still having issues MEDICATIONS: SEROQUEL ORAL TABLET 100 MG, 4 Every Day At Bedtime, 120 Dispensed, 5 Fills, 30 Duration/Days Supply, status: NEW PRESCRIPTION, 01/11/2007. CYMBALTA ORAL CAPSULE ENTERIC COATED 60 MG, 1 Every Morning, 42 Dispensed, 42 Duration/Days Supply,42 samples given, status: DISCONTINUED, 02/05/2007. 530.81-GASTROESOPHAGEAL REFLUX (GERD) ASSESSMENT: The patient's reflux esophagitis continues to remain stable. MEDICATIONS: ACIPHEX ORAL TABLET ENTERIC COATED 20 MG, one daily as directed, 30 Dispensed, status: NEW PRESCRIPTION, 06/13/2006. 780.52-INSOMNIA ASSESSMENT: The patient's insomnia has not changed. MEDICATIONS: HYDROXYZINE HCL ORAL TABLET 50 MG, 2 Every Day At Bedtime, 60 Dispensed, 5 Fills, 30 Duration/Days Supply, status: CONTINUED, 07/18/2006. Electronically Signed by: Asher Hammonds MD on Monday, February 12, 2007 * Asher Hammonds MD - 12/26/2007 7:54 AM CDT [facility] [employer] [facility] ASHER [place] MD [address] [place] [address] February 05, 2007 KALA CARRIZALES [facility] [address] [place] [address] KALA CARRIZALES has been under our care during the dates below: 02-05-2007 May return to work: 02-06-2007 RESTRICTIONS: No restrictions. Sincerely yours, ASHER [place] MD documented in this encounter Plan of Treatment Not on file documented as of this encounter Visit Diagnoses Not on filedocumented in this encounter Care Teams Access Liaison Relationship Specialty Start Date End Date Asher Hammonds MD PCP - General 10/04/12 documented as of this encounter
--- OUTSIDE RECORDS SUMMARY | 2025-03-14 07:35 | XMS_ITS | Encounter Summary ---
Author Organization [facility] Address [address] [place] [address] Care Team Providers Care Continuous Improvement Engineer Name Role Phone Asher Hammonds MD Primary Care Provider Unavailab le Encounter Details Date Type Department Care Team (Late st Contact Info) Description 02/08/2001 Outpatient Historical [facility] Medicine [place] [address] [place] [address] [address] [place] [address] Asher Hammonds MD NO ADDRESS ON FILE Social History Tobacco Use Types Packs/Day Years Used Date Smoking Tobacco: Never Assessed Comments Unknown Sex and Gender Information Value Date Recorded Sex Assigned at Not on file Legal Sex Female 5:11 AM DB2 DBA Gender Identity Not on file Sexual Orientation Not on file documented as of this encounter Plan of Treatment Not on file documented as of this encounter Visit Diagnoses Not on filedocumented in this encounter Care Teams Continuous Improvement Engineer Relationship Specialty Start Date End Date Asher Hammonds MD PCP - General 10/04/12 documented as of this encounter
--- OUTSIDE RECORDS SUMMARY | 2025-03-14 07:35 | XMS_ITS | Encounter Summary ---
Author Organization [employer] Address 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
--- OUTSIDE RECORDS SUMMARY | 2025-03-14 07:35 | XMS_ITS | Encounter Summary ---
Author Organization [facility] Address [address] [place] [address] Care Team Providers Care Curriculum Developer Name Role Phone Asher Hammonds MD Primary Care Provider Unavailab le Encounter Details Date Type Department Care Team (Late st Contact Info) Description 05/01/2007 Orders Only [facility] Medicine [place] [address] [facility] [address] [place] [address] Asher Hammonds MD NO ADDRESS ON FILE Social History Tobacco Use Types Packs/Day Years Used Date Smoking Tobacco: Never Assessed Comments Unknown Sex and Gender Information Value Date Recorded Sex Assigned at Not on file 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 BLOOD PRESSURE: 110/80. Right Arm Sitting PULSE: 84. Right Radial, Regular RESPIRATIONS: 16. TEMPERATURE: 98.6??f. Tympanic HEIGHT: 5ft0in. ALLERGIES: Allergies were reviewed. MEDICATIONS: Medications may have changed. Dr to review medications. TOBACCO USE: Patient does not currently use tobacco. CHIEF COMPLAINT Patient here for medication management.--Patient states she has not taken any of her medication's for the last two days-due to feeling suicidal scared if she open's the bottle's she might take the whole bottle--recently lost her new job--has lost her last 3 jobs HISTORY: HISTORY: 300.00-ANXIETY The condition has worsened. 300.1-WHVCVOGZP-LBCJGREMHH DISORDERS The condition remains stable. The patient has a loss of interest in usual activities, has a change in sleep pattern, has symptoms of fatigue, has feelings of worthlessness, voices suicidal ideations, has anxiety, has recurrent nonsensical thoughts, has compulsions. No complications noted from the medication presently being used.--has not taken meds for two days--per patient. 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 Normal stability, strength and tone. ASSESSMENT/PLAN: 300.2-EHGWGUQBN-HAZWXJLQDH DISORDERS ASSESSMENT: The patient's obsessive-compulsive behavior remain stable. MEDICATIONS: CYMBALTA ORAL CAPSULE ENTERIC COATED 60 MG, 1 Two Times A Day, 60 Dispensed, 30 Duration/Days Supply, 60 samples given, status: NEW PRESCRIPTION, 02/05/2007. WELLBUTRIN SR ORAL TABLET 12 HR 150 MG, 1 Two Times A Day, 60 Dispensed, 5 Fills, 30 Duration/Days Supply, status: NEW PRESCRIPTION, 12/21/2006. 780.52-INSOMNIA MEDICATIONS: HYDROXYZINE HCL ORAL TABLET 50 MG, 2 Every Day At Bedtime, 60 Dispensed, 5 Fills, 30 Duration/Days Supply, status: CONTINUED, 05/01/2007. 784.0-HEADACHE ASSESSMENT: The patient's headaches are stable. MEDICATIONS: INDERAL LA ORAL CAPSULE 24 HR 80 MG, 1 Every Day At Bedtime, 30 Dispensed, 11 Fills, 30 Duration/Days Supply, status: CONTINUED, 10/11/2006. RETURN VISIT: Patient instructed to return in 1 month. Electronically Signed by: Asher Hammonds MD on Wednesday, May 02, 2007 documented in this encounter Plan of Treatment Not on file documented as of this encounter Visit Diagnoses Not on filedocumented in this encounter Care Teams Curriculum Developer Relationship Specialty Start Date End Date Asher Hammonds MD PCP - General 10/04/12 documented as of this encounter
--- OUTSIDE RECORDS SUMMARY | 2025-03-14 07:35 | XMS_ITS | Encounter Summary ---
Author Organization [facility] Address [address] [place] [address] Care Team Providers Care Occupational Therapy Program Director Name Role Phone Asher Hammonds MD Primary Care Provider Unavailab le Encounter Details Date Type Department Care Team (Late st Contact Info) Description 07/21/2003 Outpatient Historical [facility] Medicine [place] [address] [place] [address] [address] [place] [address] Asher Hammonds MD NO ADDRESS ON FILE Social History Tobacco Use Types Packs/Day Years Used Date Smoking Tobacco: Never Assessed Comments Unknown Sex and Gender Information Value Date Recorded Sex Assigned at Not on file Legal 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
--- OUTSIDE RECORDS SUMMARY | 2025-03-14 07:35 | XMS_ITS | Encounter Summary ---
Author Organization [employer] Address 

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
--- OUTSIDE RECORDS SUMMARY | 2025-03-14 07:35 | XMS_ITS | Encounter Summary ---
Author Organization [employer] Address 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
--- OUTSIDE RECORDS SUMMARY | 2025-03-14 07:35 | XMS_ITS | Encounter Summary ---
Author Organization [facility] Address [address] [place] [address] Care Team Providers Care Block Operator Name Role Phone Asher Hammonds MD Primary Care Provider Unavailab le Encounter Details Date Type Department Care Team (Late st Contact Info) Description 03/28/2007 Outpatient Historical [facility] Medicine [place] [address] [place] [address] [address] [place] [address] Asher Hammonds MD NO ADDRESS ON FILE Social History Tobacco Use Types Packs/Day Years Used Date Smoking Tobacco: Never Assessed Comments Unknown Sex and Gender Information Value Date Recorded Sex Assigned at Not on file Legal Sex Female 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 DEAN OF STUDENT SERVICES Gender Identity Not on file Sexual Orientation Not on file documented as of this encounter Last Filed Vital Signs Vital Sign Reading Time Taken Comments Blood Pressure 130/80 03/28/2007 3:30 PM CDT Pulse 92 03/28/2007 3:30 PM CDT Temperature 36.4 C (97.6 F) 03/28/2007 3:30 PM CDT Respiratory Rate 16 03/28/2007 3:30 PM CDT Oxygen Saturation - - Inhaled Oxygen Concentration - - Weight 99.8 kg (220 lb) 03/28/2007 3:30 PM CDT Height 152.4 cm (5') 03/28/2007 3:30 PM CDT Body Mass Index 42.97 03/28/2007 3:30 PM CDT documented in this encounter Plan of Treatment Not on file documented as of this encounter Visit Diagnoses Not on filedocumented in this encounter Care Teams Block Operator Relationship Specialty Start Date End Date Asher Hammonds MD PCP - General 10/04/12 documented as of this encounter
--- OUTSIDE RECORDS SUMMARY | 2025-03-14 07:35 | XMS_ITS | Encounter Summary ---
Author Organization [facility] Address [address] [place] [address] Care Team Providers Care C 40A Crew Chief Name Role Phone Asher Hammonds MD Primary Care Provider Unavailab le Encounter Details Date Type Department Care Team (Late st Contact Info) Description 02/08/2006 Outpatient Historical [facility] Medicine [place] [address] [place] [address] [address] [place] [address] Asher Hammonds MD NO ADDRESS ON FILE Social History Tobacco Use Types Packs/Day Years Used Date Smoking Tobacco: Never Assessed Comments Unknown Sex and Gender Information Value Date Recorded Sex Assigned at Not on file Legal Sex Female 5:11 AM ICT DEVELOPER Gender Identity Not on file Sexual Orientation Not on file documented as of this encounter Plan of Treatment Not on file documented as of this encounter Visit Diagnoses Not on filedocumented in this encounter Care Teams C 40A Crew Chief Relationship Specialty Start Date End Date Asher Hammonds MD PCP - General 10/04/12 documented as of this encounter
--- OUTSIDE RECORDS SUMMARY | 2025-03-14 07:35 | XMS_ITS | Encounter Summary ---
Author Organization [facility] Address [address] [place] [address] Care Team Providers Care Barrel Tester And Drainer Name Role Phone Asher Hammonds MD Primary Care Provider Unavailab le Encounter Details Date Type Department Care Team (Late st Contact Info) Description 03/08/2001 Outpatient Historical [facility] Medicine [place] [address] [place] [address] [address] [place] [address] Asher Hammonds MD NO ADDRESS ON FILE Social History Tobacco Use Types Packs/Day Years Used Date Smoking Tobacco: Never Assessed Comments Unknown Sex and Gender Information Value Date Recorded Sex Assigned at Not on file Legal Sex Female 5:11 AM HEMODIALYSIS PATIENT CARE SPECIALIST Gender Identity Not on file Sexual Orientation Not on file documented as of this encounter Plan of Treatment Not on file documented as of this encounter Visit Diagnoses Not on filedocumented in this encounter Care Teams Barrel Tester And Drainer Relationship Specialty Start Date End Date Asher Hammonds MD PCP - General 10/04/12 documented as of this encounter
--- OUTSIDE RECORDS SUMMARY | 2025-03-14 07:35 | XMS_ITS | Encounter Summary ---
Author Organization [facility] Address [address] [place] [address] Care Team Providers Care Renewable Energy Broker Name Role Phone Asher Hammonds MD Primary Care Provider Unavailab le Encounter Details Date Type Department Care Team (Late st Contact Info) Description 01/04/2007 Outpatient Historical [facility] Medicine [place] [address] [place] [address] [address] [place] [address] Asher Hammonds MD NO ADDRESS ON FILE Social History Tobacco Use Types Packs/Day Years Used Date Smoking Tobacco: Never Assessed Comments Unknown Sex and Gender Information Value Date Recorded Sex Assigned at Not on file Legal Sex Female 5:11 AM MEDICAL ADMINISTRATOR Gender Identity Not on file Sexual Orientation Not on file documented as of this encounter Last Filed Vital Signs Vital Sign Reading Time Taken Comments Blood Pressure 120/70 01/04/2007 4:15 PM CDT Pulse 80 01/04/2007 4:15 PM CDT Temperature 36.4 C (97.6 F) 01/04/2007 4:15 PM CDT Respiratory Rate 16 01/04/2007 4:15 PM CDT Oxygen Saturation - - Inhaled Oxygen Concentration - - Weight 99.3 kg (219 lb) 01/04/2007 4:15 PM CDT Height 157.5 cm (5' 2) 01/04/2007 4:15 PM CDT Body Mass Index 40.06 01/04/2007 4:15 PM CDT documented in this encounter Plan of Treatment Not on file documented as of this encounter Visit Diagnoses Not on filedocumented in this encounter Care Teams Renewable Energy Broker Relationship Specialty Start Date End Date Asher Hammonds MD PCP - General 10/04/12 documented as of this encounter
--- OUTSIDE RECORDS SUMMARY | 2025-03-14 07:35 | XMS_ITS | Encounter Summary ---
Author Organization [facility] Address [address] [place] [address] Care Team Providers Care Security Software Engineer Name Role Phone Asher Hammonds MD Primary Care Provider Unavailab le Encounter Details Date Type Department Care Team (Late st Contact Info) Description 02/05/2007 Outpatient Historical [facility] Medicine [place] [address] [place] [address] [address] [place] [address] Asher Hammonds MD NO ADDRESS ON FILE Social History Tobacco Use Types Packs/Day Years Used Date Smoking Tobacco: Never Assessed Comments Unknown Sex and Gender Information Value Date Recorded Sex Assigned at Not on file Legal Sex Female 5:11 AM RN HEMODIALYSIS CHARGE Gender Identity Not on file Sexual Orientation Not on file documented as of this encounter Last Filed Vital Signs Vital Sign Reading Time Taken Comments Blood Pressure 110/70 02/05/2007 4:00 PM CDT Pulse 80 02/05/2007 4:00 PM CDT Temperature 36.2 C (97.1 F) 02/05/2007 4:00 PM CDT Respiratory Rate 16 02/05/2007 4:00 PM CDT Oxygen Saturation - - Inhaled Oxygen Concentration - - Weight 99.8 kg (220 lb) 02/05/2007 4:00 PM CDT Height 157.5 cm (5' 2) 02/05/2007 4:00 PM CDT Body Mass Index 40.24 02/05/2007 4:00 PM CDT documented in this encounter Plan of Treatment Not on file documented as of this encounter Visit Diagnoses Not on filedocumented in this encounter Care Teams Security Software Engineer Relationship Specialty Start Date End Date Asher Hammonds MD PCP - General 10/04/12 documented as of this encounter
--- OUTSIDE RECORDS SUMMARY | 2025-03-14 07:35 | XMS_ITS | Encounter Summary ---
Author Organization [facility] Address [address] [place] [address] Care Team Providers Care Law Tutor Name Role Phone Asher Hammonds MD Primary Care Provider Unavailab le Encounter Details Date Type Department Care Team (Late st Contact Info) Description 12/22/2000 Outpatient Historical [facility] Avila Gunn Hematuria (Primary Dx) Social History Tobacco Use Types Packs/Day Years Used Date Smoking Tobacco: Never Assessed Comments Unknown Sex and Gender Information Value Date Recorded Sex Assigned at Not on file Legal Sex Female 5:11 AM REHABILITATION ATTENDANT Gender Identity Not on file Sexual Orientation Not on file documented as of this encounter Plan of Treatment Not on file documented as of this encounter Visit Diagnoses Diagnosis Hematuria- Primary documented in this encounter Care Teams Law Tutor Relationship Specialty Start Date End Date Asher Hammonds MD PCP - General 10/04/12 documented as of this encounter
--- OUTSIDE RECORDS SUMMARY | 2025-03-14 07:35 | XMS_ITS | Encounter Summary ---
Author Organization [facility] Address [address] [place] [address] Care Team Providers Care Dewatering Filtering Supervisor Name Role Phone Asher Hammonds MD Primary Care Provider Unavailab le Encounter Details Date Type Department Care Team (Late st Contact Info) Description 03/07/2007 Outpatient Historical [facility] Medicine [place] [address] [place] [address] [address] [place] [address] Asher Hammonds MD NO ADDRESS ON FILE Social History Tobacco Use Types Packs/Day Years Used Date Smoking Tobacco: Never Assessed Comments Unknown Sex and Gender Information Value Date Recorded Sex Assigned at Not on file Legal Sex Female 5:11 AM GUILLOTINE TRIMMER Gender Identity Not on file Sexual Orientation Not on file documented as of this encounter Last Filed Vital Signs Vital Sign Reading Time Taken Comments Blood Pressure 130/90 03/07/2007 4:15 PM CDT Pulse 88 03/07/2007 4:15 PM CDT Temperature 36.8 C (98.2 F) 03/07/2007 4:15 PM CDT Respiratory Rate 16 03/07/2007 4:15 PM CDT Oxygen Saturation - - Inhaled Oxygen Concentration - - Weight 99.8 kg (220 lb) 03/07/2007 4:15 PM CDT Height 152.4 cm (5') 03/07/2007 4:15 PM CDT Body Mass Index 42.97 03/07/2007 4:15 PM CDT documented in this encounter Plan of Treatment Not on file documented as of this encounter Visit Diagnoses Not on filedocumented in this encounter Care Teams Dewatering Filtering Supervisor Relationship Specialty Start Date End Date Asher Hammonds MD PCP - General 10/04/12 documented as of this encounter
--- OUTSIDE RECORDS SUMMARY | 2025-03-14 07:35 | XMS_ITS | Encounter Summary ---
Author Organization [facility] Address [address] [place] [address] Care Team Providers Care Prenatal Genetic Counselor Name Role Phone Asher Hammonds MD Primary Care Provider Unavailab le Encounter Details Date Type Department Care Team (Late st Contact Info) Description 03/31/2003 Outpatient Historical [facility] Medicine [place] [address] [place] [address] [address] [place] [address] Asher Hammonds MD NO ADDRESS ON FILE Social History Tobacco Use Types Packs/Day Years Used Date Smoking Tobacco: Never Assessed Comments Unknown Sex and Gender Information Value Date Recorded Sex Assigned at Not on file Legal Sex Female 5:11 AM STEAMTABLE ATTENDANT RAILROAD Gender Identity Not on file Sexual Orientation Not on file documented as of this encounter Plan of Treatment Not on file documented as of this encounter Visit Diagnoses Not on filedocumented in this encounter Care Teams Prenatal Genetic Counselor Relationship Specialty Start Date End Date Asher Hammonds MD PCP - General 10/04/12 documented as of this encounter
--- OUTSIDE RECORDS SUMMARY | 2025-03-14 07:35 | XMS_ITS | Encounter Summary ---
Author Organization [facility] Address [address] [place] [address] Care Team Providers Care Sole Cutter Name Role Phone Asher Hammonds MD Primary Care Provider Unavailab le Encounter Details Date Type Department Care Team (Late st Contact Info) Description 01/16/2006 Outpatient Historical [facility] Medicine [place] [address] [place] [address] [address] [place] [address] Asher Hammonds MD NO ADDRESS ON FILE Social History Tobacco Use Types Packs/Day Years Used Date Smoking Tobacco: Never Assessed Comments Unknown Sex and Gender Information Value Date Recorded Sex Assigned at Not on file Legal Sex Female 5:11 AM GLOBAL ACCOUNT MANAGER Gender Identity Not on file Sexual Orientation Not on file documented as of this encounter Last Filed Vital Signs Vital Sign Reading Time Taken Comments Blood Pressure 120/78 01/16/2006 4:15 PM CDT Pulse 68 01/16/2006 4:15 PM CDT Temperature 37.1 C (98.7 F) 01/16/2006 4:15 PM CDT Respiratory Rate 16 01/16/2006 4:15 PM CDT Oxygen Saturation - - Inhaled Oxygen Concentration - - Weight 87.1 kg (192 lb) 01/16/2006 4:15 PM CDT Height 154.9 cm (5' 1) 01/16/2006 4:15 PM CDT Body Mass Index 36.28 01/16/2006 4:15 PM CDT documented in this encounter Plan of Treatment Not on file documented as of this encounter Visit Diagnoses Not on filedocumented in this encounter Care Teams Sole Cutter Relationship Specialty Start Date End Date Asher Hammonds MD PCP - General 10/04/12 documented as of this encounter
--- OUTSIDE RECORDS SUMMARY | 2025-03-14 07:35 | XMS_ITS | Encounter Summary ---
Author Organization [facility] Address [address] [place] [address] Care Team Providers Care Housetrailer Servicer Name Role Phone Asher Hammonds MD Primary Care Provider Unavailab le Encounter Details Date Type Department Care Team (Late st Contact Info) Description 12/15/2000 Outpatient Historical [facility] Medicine [place] [address] [place] [address] [address] [place] [address] Avila Gunn Social History Tobacco Use Types Packs/Day Years Used Date Smoking Tobacco: Never Assessed Comments Unknown Sex and Gender Information Value Date Recorded Sex Assigned at Not on file Legal Sex Female 5:11 AM POT FISHER Gender Identity Not on file Sexual Orientation Not on file documented as of this encounter Plan of Treatment Not on file documented as of this encounter Visit Diagnoses Not on filedocumented in this encounter Care Teams Housetrailer Servicer Relationship Specialty Start Date End Date Asher Hammonds MD PCP - General 10/04/12 documented as of this encounter
--- OUTSIDE RECORDS SUMMARY | 2025-03-14 07:35 | XMS_ITS | Encounter Summary ---
Author Organization [facility] Address [address] [place] [address] Care Team Providers Care Site Promotion Agent Name Role Phone Asher Hammonds MD Primary Care Provider Unavailab le Encounter Details Date Type Department Care Team (Late st Contact Info) Description 02/01/2006 Outpatient Historical [facility] Medicine [place] [address] [place] [address] [address] [place] [address] Asher Hammonds MD NO ADDRESS ON FILE Social History Tobacco Use Types Packs/Day Years Used Date Smoking Tobacco: Never Assessed Comments Unknown Sex and Gender Information Value Date Recorded Sex Assigned at Not on file Legal Sex Female 5:11 AM PALLET SORTER Gender Identity Not on file Sexual Orientation Not on file documented as of this encounter Plan of Treatment Not on file documented as of this encounter Visit Diagnoses Not on filedocumented in this encounter Care Teams Site Promotion Agent Relationship Specialty Start Date End Date Asher Hammonds MD PCP - General 10/04/12 documented as of this encounter
--- OUTSIDE RECORDS SUMMARY | 2025-03-14 07:36 | XMS_ITS | Encounter Summary ---
Author Organization [facility] Address [address] [place] [address] Care Team Providers Care Claims Adjustor Name Role Phone Asher Hammonds MD Primary Care Provider Unavailab le Encounter Details Date Type Department Care Team (Late st Contact Info) Description 06/13/2006 Outpatient Historical [facility] Medicine [place] [address] [place] [address] [address] [place] [address] Asher Hammonds MD NO ADDRESS ON FILE Social History Tobacco Use Types Packs/Day Years Used Date Smoking Tobacco: Never Assessed Comments Unknown Sex and Gender Information Value Date Recorded Sex Assigned at Not on file Legal Sex Female 5:11 AM DRUPAL ARCHITECT Gender Identity Not on file Sexual Orientation Not on file documented as of this encounter Plan of Treatment Not on file documented as of this encounter Visit Diagnoses Not on filedocumented in this encounter Care Teams Claims Adjustor Relationship Specialty Start Date End Date Asher Hammonds MD PCP - General 10/04/12 documented as of this encounter
--- OUTSIDE RECORDS SUMMARY | 2025-03-14 07:36 | XMS_ITS | Encounter Summary ---
Author Organization [facility] Address [address] [place] [address] Care Team Providers Care Mail Technician Name Role Phone Asher Hammonds MD Primary Care Provider Unavailab le Encounter Details Date Type Department Care Team (Late st Contact Info) Description 08/08/2006 Orders Only [facility] Medicine [place] [address] [facility] [address] [place] [address] Asher Hammonds MD NO ADDRESS ON FILE Social History Tobacco Use Types Packs/Day Years Used Date Smoking Tobacco: Never Assessed Comments Unknown Sex and Gender Information Value Date Recorded Sex Assigned at Not on file Legal Sex Female 5:11 AM NURSE PRN Gender Identity Not on file Sexual Orientation Not on file documented as of this encounter Progress Notes * Asher Hammonds MD - 01/01/2008 9:28 AM CDT TIME:11:02 am PATIENT`S HOME PHONE: PATIENT`S WORK PHONE: PATIENT`S INSURANCE: WHO TOOK THE CALL: Mauricio Adan GENERAL INFORMATION LAST VISIT: 07-18-06 WHO CALLED: Pharmacy called[facility] [phone] CURRENT ALLERGY LIST: MACROBID PCN SULFA DRUGS SECTION 1: REQUESTED ACTION [email or web address] 08/08/06 at 11:02 am: MEDICATION REQUEST: MEDICATIONS: INDERAL LA ORAL CAPSULE 24 HR 80 MG, 1 Every Day At Bedtime, 30 Dispensed, 30 Duration/Days Supply,status: NEW PRESCRIPTION, 03/25/2006. Lf 06-05-06 XANAX ORAL TABLET 2 MG, 1 Every Day At Bedtime, 60 Dispensed, 30 Duration/Days Supply, status: CONTINUED, 07/05/2006. lf 07-06-06 DOCTOR`S RESPONSE: kim 08/08/06 at 11:59 am MEDICATIONS: INDERAL LA ORAL CAPSULE 24 HR 80 MG, 1 Every Day At Bedtime, 30 Dispensed, 30 Duration/Days Supply,status: CONTINUED, 08/08/2006. XANAX ORAL TABLET 2 MG, 1 Every Day At Bedtime, 60 Dispensed, 30 Duration/Days Supply, status: CONTINUED, 08/08/2006. FINAL ACTION: kim 08/08/06 at 11:59 am Called pharmacy at 08/08/06 at 12:00 pm. Asher Electronically Signed by: Marianna Burnette LPN on Tuesday, August 08, 2006 Electronically Signed by: Asher Hammonds MD on Tuesday, August 08, 2006 documented in this encounter Plan of Treatment Not on file documented as of this encounter Visit Diagnoses Not on filedocumented in this encounter Care Teams Mail Technician Relationship Specialty Start Date End Date Asher Hammonds MD PCP - General 10/04/12 documented as of this encounter
--- OUTSIDE RECORDS SUMMARY | 2025-03-14 07:36 | XMS_ITS | Encounter Summary ---
Author Organization [facility] Address [address] [place] [address] Care Team Providers Care Sand Mill Grinder Name Role Phone Asher Hammonds MD Primary Care Provider Unavailab le Encounter Details Date Type Department Care Team (Late st Contact Info) Description 05/21/2001 Outpatient Historical [facility] Medicine [place] [address] [place] [address] [address] [place] [address] Asher Hammonds MD NO ADDRESS ON FILE Social History Tobacco Use Types Packs/Day Years Used Date Smoking Tobacco: Never Assessed Comments Unknown Sex and Gender Information Value Date Recorded Sex Assigned at Not on file Legal Sex Female 5:11 AM WINDING INSPECTOR Gender Identity Not on file Sexual Orientation Not on file documented as of this encounter Plan of Treatment Not on file documented as of this encounter Visit Diagnoses Not on filedocumented in this encounter Care Teams Sand Mill Grinder Relationship Specialty Start Date End Date Asher Hammonds MD PCP - General 10/04/12 documented as of this encounter
--- OUTSIDE RECORDS SUMMARY | 2025-03-14 07:36 | XMS_ITS | Encounter Summary ---
Author Organization [facility] Address [address] [place] [address] Care Team Providers Care International Trade Compliance Manager Name Role Phone Asher Hammonds MD Primary Care Provider Unavailab le Encounter Details Date Type Department Care Team (Late st Contact Info) Description 08/16/2006 Outpatient Historical [facility] Medicine [place] [address] [place] [address] [address] [place] [address] Asher Hammonds MD NO ADDRESS ON FILE Social History Tobacco Use Types Packs/Day Years Used Date Smoking Tobacco: Never Assessed Comments Unknown Sex and Gender Information Value Date Recorded Sex Assigned at Not on file Legal Sex Female 5:11 AM OUTSOLE SCHEDULER Gender Identity Not on file Sexual Orientation Not on file documented as of this encounter Plan of Treatment Not on file documented as of this encounter Visit Diagnoses Not on filedocumented in this encounter Care Teams International Trade Compliance Manager Relationship Specialty Start Date End Date Asher Hammonds MD PCP - General 10/04/12 documented as of this encounter
--- OUTSIDE RECORDS SUMMARY | 2025-03-14 07:36 | XMS_ITS | Encounter Summary ---
Author Organization [facility] Address [address] [place] [address] Care Team Providers Care Medical Services Assistant Name Role Phone Asher Hammonds MD Primary Care Provider Unavailab le Encounter Details Date Type Department Care Team (Late st Contact Info) Description 03/04/2004 Outpatient Historical [facility] Medicine [place] [address] [place] [address] [address] [place] [address] Asher Hammonds MD NO ADDRESS ON FILE Social History Tobacco Use Types Packs/Day Years Used Date Smoking Tobacco: Never Assessed Comments Unknown Sex and Gender Information Value Date Recorded Sex Assigned at Not on file Legal Sex Female 5:11 AM WAREHOUSE PROCESSOR Gender Identity Not on file Sexual Orientation Not on file documented as of this encounter Plan of Treatment Not on file documented as of this encounter Visit Diagnoses Not on filedocumented in this encounter Care Teams Medical Services Assistant Relationship Specialty Start Date End Date Asher Hammonds MD PCP - General 10/04/12 documented as of this encounter
--- OUTSIDE RECORDS SUMMARY | 2025-03-14 07:36 | XMS_ITS | Encounter Summary ---
Author Organization [facility] Address [address] [place] [address] Care Team Providers Care Coating Mixer Name Role Phone Asher Hammonds MD Primary Care Provider Unavailab le Encounter Details Date Type Department Care Team (Late st Contact Info) Description 12/22/2003 Outpatient Historical [facility] Medicine [place] [address] [place] [address] [address] [place] [address] Asher Hammonds MD NO ADDRESS ON FILE Social History Tobacco Use Types Packs/Day Years Used Date Smoking Tobacco: Never Assessed Comments Unknown Sex and Gender Information Value Date Recorded Sex Assigned at Not on file Legal Sex Female 5:11 AM EMERGENCY MEDICINE NURSE PRACTITIONER Gender Identity Not on file Sexual Orientation Not on file documented as of this encounter Plan of Treatment Not on file documented as of this encounter Visit Diagnoses Not on filedocumented in this encounter Care Teams Coating Mixer Relationship Specialty Start Date End Date Asher Hammonds MD PCP - General 10/04/12 documented as of this encounter
--- OUTSIDE RECORDS SUMMARY | 2025-03-14 07:36 | XMS_ITS | Encounter Summary ---
Author Organization [facility] Address [address] [place] [address] Care Team Providers Care Mat Man Name Role Phone Asher Hammonds MD Primary Care Provider Unavailab le Encounter Details Date Type Department Care Team (Late st Contact Info) Description 11/13/2003 Outpatient Historical [facility] Medicine [place] [address] [place] [address] [address] [place] [address] Asher Hammonds MD NO ADDRESS ON FILE Social History Tobacco Use Types Packs/Day Years Used Date Smoking Tobacco: Never Assessed Comments Unknown Sex and Gender Information Value Date Recorded Sex Assigned at Not on file Legal Sex Female 5:11 AM DIRECTOR DATA PROCESSING Gender Identity Not on file Sexual Orientation Not on file documented as of this encounter Plan of Treatment Not on file documented as of this encounter Visit Diagnoses Not on filedocumented in this encounter Care Teams Mat Man Relationship Specialty Start Date End Date Asher Hammonds MD PCP - General 10/04/12 documented as of this encounter
--- OUTSIDE RECORDS SUMMARY | 2025-03-14 07:36 | XMS_ITS | Encounter Summary ---
Author Organization [facility] Address [address] [place] [address] Care Team Providers Care Card Scraper Name Role Phone Asher Hammonds MD Primary Care Provider Unavailab le Encounter Details Date Type Department Care Team (Late st Contact Info) Description 02/20/2006 Outpatient Historical [facility] Medicine [place] [address] [place] [address] [address] [place] [address] Asher Hammonds MD NO ADDRESS ON FILE Social History Tobacco Use Types Packs/Day Years Used Date Smoking Tobacco: Never Assessed Comments Unknown Sex and Gender Information Value Date Recorded Sex Assigned at Not on file Legal Sex Female 5:11 AM RN PERIOPERATIVE Gender Identity Not on file Sexual Orientation Not on file documented as of this encounter Plan of Treatment Not on file documented as of this encounter Visit Diagnoses Not on filedocumented in this encounter Care Teams Card Scraper Relationship Specialty Start Date End Date Asher Hammonds MD PCP - General 10/04/12 documented as of this encounter
--- OUTSIDE RECORDS SUMMARY | 2025-03-14 07:36 | XMS_ITS | Encounter Summary ---
Author Organization [facility] Address [address] [place] [address] Care Team Providers Care Irish Moss Operator Name Role Phone Asher Hammonds MD Primary Care Provider Unavailab le Encounter Details Date Type Department Care Team (Late st Contact Info) Description 01/06/2004 Outpatient Historical [facility] Medicine [place] [address] [place] [address] [address] [place] [address] Asher Hammonds MD NO ADDRESS ON FILE Social History Tobacco Use Types Packs/Day Years Used Date Smoking Tobacco: Never Assessed Comments Unknown Sex and Gender Information Value Date Recorded Sex Assigned at Not on file Legal Sex Female 5:11 AM SERVICE CENTER SPECIALIST Gender Identity Not on file Sexual Orientation Not on file documented as of this encounter Plan of Treatment Not on file documented as of this encounter Visit Diagnoses Not on filedocumented in this encounter Care Teams Irish Moss Operator Relationship Specialty Start Date End Date Asher Hammonds MD PCP - General 10/04/12 documented as of this encounter
--- OUTSIDE RECORDS SUMMARY | 2025-03-14 07:36 | XMS_ITS | Encounter Summary ---
Author Organization [facility] Address [address] [place] [address] Care Team Providers Care Sas Clinical Programmer Name Role Phone Asher Hammonds MD Primary Care Provider Unavailab le Encounter Details Date Type Department Care Team (Late st Contact Info) Description 11/26/2003 Outpatient Historical [facility] Medicine [place] [address] [place] [address] [address] [place] [address] Asher Hammonds MD NO ADDRESS ON FILE Social History Tobacco Use Types Packs/Day Years Used Date Smoking Tobacco: Never Assessed Comments Unknown Sex and Gender Information Value Date Recorded Sex Assigned at Not on file Legal Sex Female 5:11 AM PHYSICAL THERAPY ATTENDANT Gender Identity Not on file Sexual Orientation Not on file documented as of this encounter Plan of Treatment Not on file documented as of this encounter Visit Diagnoses Not on filedocumented in this encounter Care Teams Sas Clinical Programmer Relationship Specialty Start Date End Date Asher Hammonds MD PCP - General 10/04/12 documented as of this encounter
--- OUTSIDE RECORDS SUMMARY | 2025-03-14 07:36 | XMS_ITS | Encounter Summary ---
Author Organization [facility] Address [address] [place] [address] Care Team Providers Care Claims Adjuster Supervisor Name Role Phone Asher Hammonds MD Primary Care Provider Unavailab le Encounter Details Date Type Department Care Team (Late st Contact Info) Description 01/02/2004 Emergency [facility] W[facility] Zay Clemens MD HEAD INJURY UNSPECIFIED (Primary Dx) Social History Tobacco Use Types Packs/Day Years Used Date Smoking Tobacco: Never Assessed Comments Unknown Sex and Gender Information Value Date Recorded Sex Assigned at Not on file Legal Sex Female 5:11 AM HELIX COIL WINDER Gender Identity Not on file Sexual Orientation Not on file documented as of this encounter Plan of Treatment Not on file documented as of this encounter Visit Diagnoses Diagnosis Head injury, unspecified- Primary documented in this encounter Care Teams Claims Adjuster Supervisor Relationship Specialty Start Date End Date Asher Hammonds MD PCP - General 10/04/12 documented as of this encounter
--- OUTSIDE RECORDS SUMMARY | 2025-03-14 07:36 | XMS_ITS | Encounter Summary ---
Author Organization [facility] Address [address] [place] [address] Care Team Providers Care Relations Specialist Name Role Phone Asher Hammonds MD Primary Care Provider Unavailab le Encounter Details Date Type Department Care Team (Late st Contact Info) Description 06/13/2006 Orders Only [facility] Medicine [place] [address] 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 BLOOD PRESSURE: 120/70. Right Arm Sitting PULSE: 68. Right Radial, Regular RESPIRATIONS: 16. TEMPERATURE: 98.4??f. Tympanic HEIGHT: 5ft2in. ALLERGIES: Allergies were reviewed. MEDICATIONS: Medications may have changed. Dr rai review medications. CHIEF COMPLAINT Patient here for medication management. HISTORY: HISTORY: 300.00-ANXIETY The condition remains stable. No complications noted from the medication presently being used. 300.8-SWCKQNREP-DJFZBQNBNT DISORDERS The condition remains stable. No complications noted from the medication presently being used. The patient denies excessive crying, a persistent feeling of sadness and hopelessness, and fatigue. 300.4-NEUROTIC DISORDERS The condition remains stable. The patient denies excessive crying, a persistent feeling of sadness and hopelessness, and fatigue. No complications noted from the medication presently being used. 530.81-GASTROESOPHAGEAL REFLUX (GERD) The patient's dyspeptic symptoms remain stable. The patient denies any significant abdominal pain, nausea, vomiting, indigestion, bloating, or water brash. No complications noted from the medication presently being used. 780.50-SLEEP DISTURBANCE UNSPECIFIED --states she still not sleeping well-very vivid dreaming at night 780.52-INSOMNIA The insomnia has not changed. The patient continues to experience lack of sleep. Nocomplications noted from the medication presently being used. V58.69-NURSING HOME USE OF OTHER MEDICATION(S) The patient is on fpc use of medications and needs to be monitored on a regular basis. 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) CURRENT MEDICATION LIST: ASPIRIN ORAL TABLET CHEWABLE 81 MG, 1 Every Day PALAK-D ORAL TABLET 12 HR 60-120 MG, 1 Two Times A Day B-6 FOLIC ACID ORAL CAPSULE CONVENTIONAL 400-1000-50 MCG-MCG-MG, 1 daily MULTIVITAMINS ORAL TABLET, one daily ZYPREXA ORAL TABLET 10 MG, 1 Every Day At Bedtime INDERAL LA ORAL CAPSULE 24 HR 80 MG, 1 Every Day At Bedtime SEROQUEL ORAL TABLET 100 MG, 1 Two Times A Day INDOCIN SR ORAL CAPSULE CONTROLLED RELEASE 75 MG, one twice daily LEXAPRO ORAL TABLET 10 MG, 1 Two Times A Day FIORICET ORAL TABLET 50-325-40 MG, 1 Every Six Hours, As Needed RISPERDAL ORAL TABLET 2 MG, 1 Every Day At Bedtime, As Needed ALPRAZOLAM ORAL TABLET 2 MG, 1 Every Six Hours NASAL DECONGESTANT ORAL TABLET 10 MG, prn as needed HYDROXYZINE HCL ORAL TABLET 50 MG, 2 Every Day At Bedtime--patient states sometimes she is taking 3at bedtime. ACIPHEX ORAL TABLET ENTERIC COATED 20 MG, one daily as directed CURRENT ALLERGY LIST: MACROBID PCN SULFA DRUGS [...] DISCUSSED SMOKING: non smoker. OCCUPATION: . 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 ILLICIT DRUG USE: Denies illicit drug use. PHYSICAL EXAMINATION: CONSTITUTIONAL: GENERAL APPEARANCE: Healthy appearing [...] rhythm. No murmurs, rubs, or gallops. ARTERIAL: Aortic pulses of normal amplitude with no bruits. EDEMA/VARICOSITIES OF EXTREMITIES: No edema or varicosities. GASTROINTESTINAL: ABDOMEN: Soft, non-tender, without masses. Bowel sounds active. LIVER/SPLEEN/KIDNEY: No hepatosplenomegaly, tenderness or nodularity. Kidneys not palpable. MUSCULOSKELETAL EXAM: GAIT/STATION: Normal gait. DIGITS/NAILS: No clubbing, cyanosis, inflammation, or ischemia. EXTREMITIES: BILATERAL LOWER: No misalignment or tenderness. Full range of motion. Normal stability, strength and tone. ASSESSMENT/PLAN: 300.00-ANXIETY ASSESSMENT: The patient's anxiety remains stable. MEDICATIONS: XANAX ORAL TABLET 2 MG, 1 Every Day At Bedtime, 60 Dispensed, 30 Duration/Days Supply, status: NEW PRESCRIPTION, 06/13/2006. ALPRAZOLAM ORAL TABLET 2 MG TABLETS, 1 Every Six Hours, 60 Dispensed, 30 Duration/Days Supply, status: DISCONTINUED HISTORY, 06/13/2006. 300.7-GEMIGOCCD-EWYEVDBIRM DISORDERS ASSESSMENT: The patient's obsessive-compulsive behavior remain stable. MEDICATIONS: LEXAPRO ORAL TABLET 10 MG, 1 Two Times A Day, 60 Dispensed, 5 Fills, 30 Duration/Days Supply, status: CONTINUED, 04/19/2006. RISPERDAL ORAL TABLET 2 MG, 1 Every Day At Bedtime, As Needed, 30 Dispensed, 30 Duration/Days Supply, 30 samples given, status: NEW PRESCRIPTION, 05/29/2006. 530.81-GASTROESOPHAGEAL REFLUX (GERD) ASSESSMENT: The patient's reflux esophagitis continues to remain stable. 780.52-INSOMNIA ASSESSMENT: The patient's insomnia continues to remain stable. MEDICATIONS: HYDROXYZINE HCL ORAL TABLET 50 MG, 2 Every Day At Bedtime, 60 Dispensed, 30 Duration/Days Supply, status: CONTINUED, 06/13/2006. ZYPREXA ORAL TABLET 10 MG, 1 Every Day At Bedtime, 30 Dispensed, 30 Duration/Days Supply, 30 samples given, status: NEW PRESCRIPTION, 03/13/2006. SEROQUEL ORAL TABLET 100 MG, 1 Two Times A Day, 30 Dispensed, 15 Duration/Days Supply, 30 samples given, status: NEW PRESCRIPTION, 04/17/2006. 784.0-HEADACHE ASSESSMENT: The patient's headaches are stable. RETURN VISIT: Patient instructed to return in 6 weeks. Electronically Signed by: Asher Hammonds MD on Tuesday, June 13, 2006 documented in this encounter Plan of Treatment Not on file documented as of this encounter Visit Diagnoses Not on filedocumented in this encounter Care Teams Relations Specialist Relationship Specialty Start Date End Date Asher Hammonds MD PCP - General 10/04/12 documented as of this encounter
--- OUTSIDE RECORDS SUMMARY | 2025-03-14 07:36 | XMS_ITS | Encounter Summary ---
Author Organization [facility] Address [address] [place] [address] Care Team Providers Care Senior Training Specialist Name Role Phone Asher Hammonds MD Primary Care Provider Unavailab le Encounter Details Date Type Department Care Team (Late st Contact Info) Description 06/02/2003 Outpatient Historical [facility] Medicine [place] [address] [place] [address] [address] [place] [address] Asher Hammonds MD NO ADDRESS ON FILE Social History Tobacco Use Types Packs/Day Years Used Date Smoking Tobacco: Never Assessed Comments Unknown Sex and Gender Information Value Date Recorded Sex Assigned at Not on file 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
--- OUTSIDE RECORDS SUMMARY | 2025-03-14 07:36 | XMS_ITS | Encounter Summary ---
Author Organization [facility] Address [address] [place] [address] Care Team Providers Care Senior Water Resources Engineer Name Role Phone Asher Hammonds MD Primary Care Provider Unavailab le Encounter Details Date Type Department Care Team (Late st Contact Info) Description 05/19/2003 Outpatient Historical [facility] Medicine [place] [address] [place] [address] [address] [place] [address] Asher Hammonds MD NO ADDRESS ON FILE Social History Tobacco Use Types Packs/Day Years Used Date Smoking Tobacco: Never Assessed Comments Unknown Sex and Gender Information Value Date Recorded Sex Assigned at Not on file 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
--- OUTSIDE RECORDS SUMMARY | 2025-03-14 07:36 | XMS_ITS | Encounter Summary ---
Author Organization [facility] Address [address] [place] [address] Care Team Providers Care Roll Tension Tester Name Role Phone Asher Hammonds MD Primary Care Provider Unavailab le Encounter Details Date Type Department Care Team (Late st Contact Info) Description 10/15/2003 Outpatient Historical [facility] Medicine [place] [address] [place] [address] [address] [place] [address] Asher Hammonds MD NO ADDRESS ON FILE Social History Tobacco Use Types Packs/Day Years Used Date Smoking Tobacco: Never Assessed Comments Unknown Sex and Gender Information Value Date Recorded Sex Assigned at Not on file Legal 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
--- OUTSIDE RECORDS SUMMARY | 2025-03-14 07:36 | XMS_ITS | Encounter Summary ---
Author Organization [facility] Address [address] [place] [address] Care Team Providers Care Shoelace Tipping Machine Operator Name Role Phone Asher Hammonds MD Primary Care Provider Unavailab le Encounter Details Date Type Department Care Team (Late st Contact Info) Description 11/26/2001 Outpatient Historical [facility] Medicine [place] [address] [place] [address] [address] [place] [address] Asher Hammonds MD NO ADDRESS ON FILE Social History Tobacco Use Types Packs/Day Years Used Date Smoking Tobacco: Never Assessed Comments Unknown Sex and Gender Information Value Date Recorded Sex Assigned at Not on file 

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
--- OUTSIDE RECORDS SUMMARY | 2025-03-14 07:36 | XMS_ITS | Encounter Summary ---
Author Organization [facility] Address 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
--- OUTSIDE RECORDS SUMMARY | 2025-03-14 07:36 | XMS_ITS | Encounter Summary ---
Author Organization [facility] Address 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
--- OUTSIDE RECORDS SUMMARY | 2025-03-14 07:36 | XMS_ITS | Encounter Summary ---
Author Organization [facility] Address [address] [place] [address] Care Team Providers Care Restaurant Line Server Name Role Phone Asher Hammonds MD Primary Care Provider Unavailab le Encounter Details Date Type Department Care Team (Late st Contact Info) Description 06/04/2001 Outpatient Historical 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
--- OUTSIDE RECORDS SUMMARY | 2025-03-14 07:36 | XMS_ITS | Encounter Summary ---
Author Organization [facility] Address [address] [place] [address] Care Team Providers Care Immunopathologist Name Role Phone Asher Hammonds MD Primary Care Provider Unavailab le Encounter Details Date Type Department Care Team (Late st Contact Info) Description 07/18/2006 Orders Only [facility] Medicine [place] [address] [facility] [address] [place] [address] Asher Hammonds MD NO ADDRESS ON FILE Social History Tobacco Use Types Packs/Day Years Used Date Smoking Tobacco: Never Assessed Comments Unknown Sex and Gender Information Value Date Recorded Sex Assigned at Not on file Legal Sex Female 5:11 AM TRANSPORTATION PROGRAM DIRECTOR Gender Identity Not on file Sexual Orientation Not on file documented as of this encounter Progress Notes * Asher Hammonds MD - 05/21/2008 3:02 AM CDT NURSE NAME: Blanca Stahl A BLOOD PRESSURE: 128/70. Right Arm Sitting PULSE: 76. Right Radial, Regular RESPIRATIONS: 16. TEMPERATURE: 98.8??f. Tympanic ALLERGIES: Allergies were reviewed. MEDICATIONS: Medications may have changed. Dr to review medications. CHIEF COMPLAINT Patient here for medication management, anxiety, depression. HISTORY: HISTORY: 300.00-ANXIETY The condition remains stable. No complications noted from the medication presently being used. The patient's symptoms of feeling depressed have not changed, symptoms of elevated mood have not changed, has a change in sleep pattern, has anxiety. No recent laboratory work done. 300.3-TGMLLOKNE-[id number] DISORDERS The condition remains stable. No complications noted from the medication presently being used. The patient has symptoms of feeling depressed, has symptoms of irritability, has symptoms of elevated mood, has crying episodes, has a change in sleep pattern, has anxiety, has symptoms of excessive worry, has recurrent nonsensical thoughts, has compulsions. 780.52-INSOMNIA The insomnia has not changed. The patient continues to experience lack of sleep. Nocomplications noted from the medication presently being used. 784.0-HEADACHE The patient relates that the headaches are stable. The patient denies any recent change in pattern or progression. No focal neurological deficits have been noted. The patient relates good tolerance to the medication that is taken on an as needed basis. V58.69-GYM MANAGER USE OF OTHER MEDICATION(S) The patient is on termite control service representative use of medications and needs to be monitored on a regular basis. CURRENT MEDICATION LIST: ASPIRIN ORAL TABLET CHEWABLE 81 MG, 1 Every Day PALAK-D ORAL TABLET 12 HR 60-120 MG, 1 Two Times A Day B-6 FOLIC ACID ORAL CAPSULE CONVENTIONAL 400-1000-50 MCG-MCG-MG, 1 daily MULTIVITAMINS ORAL TABLET, one daily INDERAL LA ORAL CAPSULE 24 HR 80 MG, 1 Every Day At Bedtime INDOCIN SR ORAL CAPSULE CONTROLLED RELEASE 75 MG, one twice daily LEXAPRO ORAL TABLET 10 MG, 1 Two Times A Day FIORICET ORAL TABLET 50-325-40 MG, 1 Every Six Hours, As Needed RISPERDAL ORAL TABLET 2 MG, 1 Every Day At Bedtime, As Needed NASAL DECONGESTANT ORAL TABLET 10 MG, prn as needed ACIPHEX ORAL TABLET ENTERIC COATED 20 MG, one daily as directed HYDROXYZINE HCL ORAL TABLET 50 MG, 2 Every Day At Bedtime SEROQUEL ORAL TABLET 100 MG, 1 Two Times A Day XANAX ORAL TABLET 2 MG, 1 Every Day At Bedtime ZYPREXA ORAL TABLET 10 MG, 1 Every Day At Bedtime CURRENT ALLERGY LIST: MACROBID PCN SULFA DRUGS [...] changes. SOCIAL HISTORY: MARITAL HISTORY: MARITAL STATUS: PERSONS IN HOME: The patient lives alone. TOBACCO USE: DISCUSSED SMOKING: non smoker. 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 ILLICIT DRUG USE: [...] hepatosplenomegaly, tenderness or nodularity. Kidneys not palpable. PSYCHIATRIC: Appropriate judgment, appropriate insight, oriented to person, place, and time, normalrecent and remote memory. ASSESSMENT/PLAN: 300.7-ZRJFDZLOH-MENLYZDTPN DISORDERS ASSESSMENT: The patient's obsessive-compulsive behavior remain stable. 780.52-INSOMNIA ASSESSMENT: The patient's insomnia continues to remain stable. Will not change medication, continueto monitor for complications. MEDICATIONS: RISPERDAL ORAL TABLET 2 MG, 1 Every Day At Bedtime, As Needed, 30 Dispensed, 30 Duration/Days Supply, 30 samples given, status: NEW PRESCRIPTION, 05/29/2006. 784.0-HEADACHE ASSESSMENT: The patient's headaches are stable. MEDICATIONS: FIORICET ORAL TABLET 50-325-40 MG, 1 Every Six Hours, As Needed, 60 Dispensed, 1 Fills, 30 Duration/Days Supply, status: CONTINUED, 07/18/2006. HYDROXYZINE HCL ORAL TABLET 50 MG, 2 Every Day At Bedtime, 60 Dispensed, 5 Fills, 30 Duration/Days Supply, status: CONTINUED, 07/18/2006. INDOCIN SR ORAL CAPSULE CONTROLLED RELEASE 75 MG, one twice daily, 60 Dispensed, 11 Fills, 30 Duration/Days Supply, status: CONTINUED, 07/18/2006. RETURN VISIT: Patient instructed to return in a few months. Patient instructed to return in 6 weeks. Electronically Signed by: Asher Hammonds MD on Tuesday, July 18, 2006 documented in this encounter Plan of Treatment Not on file documented as of this encounter Visit Diagnoses Not on filedocumented in this encounter Care Teams Immunopathologist Relationship Specialty Start Date End Date Asher Hammonds MD PCP - General 10/04/12 documented as of this encounter
--- OUTSIDE RECORDS SUMMARY | 2025-03-14 07:36 | XMS_ITS | Encounter Summary ---
Author Organization [facility] Address [address] [place] [address] Care Team Providers Care Certified Corporate Travel Executive Name Role Phone Asher Hammonds MD Primary Care Provider Unavailab le Encounter Details Date Type Department Care Team (Late st Contact Info) Description 06/24/2003 Outpatient Historical [facility] Medicine [place] [address] [place] [address] [address] [place] [address] Asher Hammonds MD NO ADDRESS ON FILE Social History Tobacco Use Types Packs/Day Years Used Date Smoking Tobacco: Never Assessed Comments Unknown Sex and Gender Information Value Date Recorded Sex Assigned at Not on file Legal Sex Female 5:11 AM MANAGEMENT ACCOUNTS MANAGER Gender Identity Not on file Sexual Orientation Not on file documented as of this encounter Plan of Treatment Not on file documented as of this encounter Visit Diagnoses Not on filedocumented in this encounter Care Teams Certified Corporate Travel Executive Relationship Specialty Start Date End Date Asher Hammonds MD PCP - General 10/04/12 documented as of this encounter
--- OUTSIDE RECORDS SUMMARY | 2025-03-14 07:36 | XMS_ITS | Encounter Summary ---
Author Organization [facility] Address [address] [place] [address] Care Team Providers Care Bioinformatician Name Role Phone Asher Hammonds MD Primary Care Provider Unavailab le Encounter Details Date Type Department Care Team (Late st Contact Info) Description 04/28/2003 Outpatient Historical [facility] Medicine [place] [address] [place] [address] [address] [place] [address] Asher Hammonds MD NO ADDRESS ON FILE Social History Tobacco Use Types Packs/Day Years Used Date Smoking Tobacco: Never Assessed Comments Unknown Sex and Gender Information Value Date Recorded Sex Assigned at Not on file Legal Sex Female 5:11 AM AGRONOMY MANAGER Gender Identity Not on file Sexual Orientation Not on file documented as of this encounter Plan of Treatment Not on file documented as of this encounter Visit Diagnoses Not on filedocumented in this encounter Care Teams Bioinformatician Relationship Specialty Start Date End Date Asher Hammonds MD PCP - General 10/04/12 documented as of this encounter
--- OUTSIDE RECORDS SUMMARY | 2025-03-14 07:36 | XMS_ITS | Encounter Summary ---
Author Organization [facility] Address [address] [place] [address] Care Team Providers Care Supervisor Contact And Service Clerks Name Role Phone Asher Hammonds MD Primary Care Provider Unavailab le Encounter Details Date Type Department Care Team (Late st Contact Info) Description 07/18/2006 Outpatient Historical [facility] Medicine [place] [address] [place] [address] [address] [place] [address] Asher Hammonds MD NO ADDRESS ON FILE Social History Tobacco Use Types Packs/Day Years Used Date Smoking Tobacco: Never Assessed Comments Unknown Sex and Gender Information Value Date Recorded Sex Assigned at Not on file Legal Sex Female 5:11 AM PHYSICIAN SPECIALIST Gender Identity Not on file Sexual Orientation Not on file documented as of this encounter Last Filed Vital Signs Vital Sign Reading Time Taken Comments Blood Pressure 128/70 07/18/2006 4:15 PM PHYSICIAN SPECIALIST Pulse 76 07/18/2006 4:15 PM PHYSICIAN SPECIALIST Temperature 37.1 C (98.8 F) 07/18/2006 4:15 PM PHYSICIAN SPECIALIST Respiratory Rate 16 07/18/2006 4:15 PM PHYSICIAN SPECIALIST Oxygen Saturation - - Inhaled Oxygen Concentration - - Weight - - Height - - Body Mass Index - - documented in this encounter Plan of Treatment Not on file documented as of this encounter Visit Diagnoses Not on filedocumented in this encounter Care Teams Supervisor Contact And Service Clerks Relationship Specialty Start Date End Date Asher Hammonds MD PCP - General 10/04/12 documented as of this encounter
--- OUTSIDE RECORDS SUMMARY | 2025-03-14 07:36 | XMS_ITS | Encounter Summary ---
Author Organization [facility] Address [address] [place] [address] Care Team Providers Care It Professional Name Role Phone Asher Hammonds MD Primary Care Provider Unavailab le Encounter Details Date Type Department Care Team (Late st Contact Info) Description 01/27/2004 Outpatient Historical [facility] Medicine [place] [address] [place] [address] [address] [place] [address] Asher Hammonds MD NO ADDRESS ON FILE Social History Tobacco Use Types Packs/Day Years Used Date Smoking Tobacco: Never Assessed Comments Unknown Sex and Gender Information Value Date Recorded Sex Assigned at Not on file Legal Sex Female 5:11 AM TUBULAR RIVETER Gender Identity Not on file Sexual Orientation Not on file documented as of this encounter Plan of Treatment Not on file documented as of this encounter Visit Diagnoses Not on filedocumented in this encounter Care Teams It Professional Relationship Specialty Start Date End Date Asher Hammonds MD PCP - General 10/04/12 documented as of this encounter
--- OUTSIDE RECORDS SUMMARY | 2025-03-14 07:36 | XMS_ITS | Encounter Summary ---
Author Organization [facility] Address [address] [place] [address] Care Team Providers Care Sap Administrator Name Role Phone Asher Hammonds MD Primary Care Provider Unavailab le Encounter Details Date Type Department Care Team (Late st Contact Info) Description 10/03/2003 Outpatient Historical [facility] Medicine [place] [address] [place] [address] [address] [place] [address] Asher Hammonds MD NO ADDRESS ON FILE Social History Tobacco Use Types Packs/Day Years Used Date Smoking Tobacco: Never Assessed Comments Unknown Sex and Gender Information Value Date Recorded Sex Assigned at Not on file Legal Sex Female 5:11 AM METEOROLOGY TEACHER Gender Identity Not on file Sexual Orientation Not on file documented as of this encounter Plan of Treatment Not on file documented as of this encounter Visit Diagnoses Not on filedocumented in this encounter Care Teams Sap Administrator Relationship Specialty Start Date End Date Asher Hammonds MD PCP - General 10/04/12 documented as of this encounter
--- OUTSIDE RECORDS SUMMARY | 2025-03-14 07:37 | XMS_ITS | Encounter Summary ---
Author Organization [facility] Address [address] [place] [address] Care Team Providers Care Block Cleaner Name Role Phone Asher Hammonds MD Primary Care Provider Unavailab le Encounter Details Date Type Department Care Team (Late st Contact Info) Description 06/10/2002 Outpatient Historical [facility] Medicine [place] [address] [place] [address] [address] [place] [address] Asher Hammonds MD NO ADDRESS ON FILE Social History Tobacco Use Types Packs/Day Years Used Date Smoking Tobacco: Never Assessed Comments Unknown Sex and Gender Information Value Date Recorded Sex Assigned at Not on file Legal Sex Female 5:11 AM BALLING MACHINE OPERATOR Gender Identity Not on file Sexual Orientation Not on file documented as of this encounter Plan of Treatment Not on file documented as of this encounter Visit Diagnoses Not on filedocumented in this encounter Care Teams Block Cleaner Relationship Specialty Start Date End Date Asher Hammonds MD PCP - General 10/04/12 documented as of this encounter
--- OUTSIDE RECORDS SUMMARY | 2025-03-14 07:37 | XMS_ITS | Encounter Summary ---
Author Organization [facility] Address [address] [place] [address] Care Team Providers Care Machine Filler Name Role Phone Asher Hammonds MD Primary Care Provider Unavailab le Encounter Details Date Type Department Care Team (Late st Contact Info) Description 10/15/2001 Outpatient Historical [facility] Medicine [place] [address] [place] [address] [address] [place] [address] Asher Hammonds MD NO ADDRESS ON FILE Social History Tobacco Use Types Packs/Day Years Used Date Smoking Tobacco: Never Assessed Comments Unknown Sex and Gender Information Value Date Recorded Sex Assigned at Not on file Legal Sex Female 5:11 AM DOCUMENT EXAMINER Gender Identity Not on file Sexual Orientation Not on file documented as of this encounter Plan of Treatment Not on file documented as of this encounter Visit Diagnoses Not on filedocumented in this encounter Care Teams Machine Filler Relationship Specialty Start Date End Date Asher Hammonds MD PCP - General 10/04/12 documented as of this encounter
--- OUTSIDE RECORDS SUMMARY | 2025-03-14 07:37 | XMS_ITS | Encounter Summary ---
Author Organization [facility] Address [address] [place] [address] Care Team Providers Care Cyber Security Manager Name Role Phone Asher Hammonds MD Primary Care Provider Unavailab le Encounter Details Date Type Department Care Team (Late st Contact Info) Description 03/16/2005 Outpatient Historical [facility] Medicine [place] [address] [place] [address] [address] [place] [address] Asher Hammonds MD NO ADDRESS ON FILE Social History Tobacco Use Types Packs/Day Years Used Date Smoking Tobacco: Never Assessed Comments Unknown Sex and Gender Information Value Date Recorded Sex Assigned at Not on file Legal Sex Female 5:11 AM SENIOR LEAD PROJECT MANAGER Gender Identity Not on file Sexual Orientation Not on file documented as of this encounter Last Filed Vital Signs Vital Sign Reading Time Taken Comments Blood Pressure 120/78 03/16/2005 3:45 PM CDT Pulse 92 03/16/2005 3:45 PM CDT Temperature 36.7 C (98 F) 03/16/2005 3:45 PM CDT Respiratory Rate 16 03/16/2005 3:45 PM CDT Oxygen Saturation - - Inhaled Oxygen Concentration - - Weight 78.5 kg (173 lb) 03/16/2005 3:45 PM CDT Height 157.5 cm (5' 2) 03/16/2005 3:45 PM CDT Body Mass Index 31.64 03/16/2005 3:45 PM CDT documented in this encounter Plan of Treatment Not on file documented as of this encounter Visit Diagnoses Not on filedocumented in this encounter Care Teams Cyber Security Manager Relationship Specialty Start Date End Date Asher Hammonds MD PCP - General 10/04/12 documented as of this encounter
--- OUTSIDE RECORDS SUMMARY | 2025-03-14 07:37 | XMS_ITS | Encounter Summary ---
Author Organization [facility] Address [address] [place] [address] Care Team Providers Care Appian Developer Name Role Phone Asher Hammonds MD Primary Care Provider Unavailab le Encounter Details Date Type Department Care Team (Late st Contact Info) Description 03/25/2006 Orders Only [facility] Medicine [place] [address] [place] [address] [address] [place] [address] Asher Hammonds MD NO ADDRESS ON FILE Social History Tobacco Use Types Packs/Day Years Used Date Smoking Tobacco: Never Assessed Comments Unknown Sex and Gender Information Value Date Recorded Sex Assigned at Not on file Legal Sex Female 5:11 AM SHOP ASSISTANT Gender Identity Not on file Sexual Orientation Not on file documented as of this encounter Plan of Treatment Not on file documented as of this encounter Visit Diagnoses Not on filedocumented in this encounter Care Teams Appian Developer Relationship Specialty Start Date End Date Asher Hammonds MD PCP - General 10/04/12 documented as of this encounter
--- OUTSIDE RECORDS SUMMARY | 2025-03-14 07:37 | XMS_ITS | Encounter Summary ---
Author Organization [facility] Address [address] [place] [address] Care Team Providers Care Smash Fixer Name Role Phone Asher Hammonds MD Primary Care Provider Unavailab le Encounter Details Date Type Department Care Team (Late st Contact Info) Description 03/23/[address] [facility] Medicine [place] [address] [place] [address] [address] [place] [address] Asher Hammonds MD NO ADDRESS ON FILE Social History Tobacco Use Types Packs/Day Years Used Date Smoking Tobacco: Never Assessed Comments Unknown Sex and Gender Information Value Date Recorded Sex Assigned at Not on file Legal Sex Female 5:11 AM RN SURGICAL Gender Identity Not on file Sexual Orientation Not on file documented as of this encounter Plan of Treatment Not on file documented as of this encounter Visit Diagnoses Not on filedocumented in this encounter Care Teams Smash Fixer Relationship Specialty Start Date End Date Asher Hammonds MD PCP - General 10/04/12 documented as of this encounter
--- OUTSIDE RECORDS SUMMARY | 2025-03-14 07:37 | XMS_ITS | Encounter Summary ---
Author Organization [facility] Address [address] [place] [address] Care Team Providers Care Machine Shop Instructor Name Role Phone Asher Hammonds MD Primary Care Provider Unavailab le Encounter Details Date Type Department Care Team (Late st Contact Info) Description 03/19/2002 Outpatient Historical [facility] Medicine [place] [address] [place] [address] [address] [place] [address] Asher Hammonds MD NO ADDRESS ON FILE Social History Tobacco Use Types Packs/Day Years Used Date Smoking Tobacco: Never Assessed Comments Unknown Sex and Gender Information Value Date Recorded Sex Assigned at Not on file Legal Sex Female 5:11 AM RELIEF DRILLER Gender Identity Not on file Sexual Orientation Not on file documented as of this encounter Plan of Treatment Not on file documented as of this encounter Visit Diagnoses Not on filedocumented in this encounter Care Teams Machine Shop Instructor Relationship Specialty Start Date End Date Asher Hammonds MD PCP - General 10/04/12 documented as of this encounter
--- OUTSIDE RECORDS SUMMARY | 2025-03-14 07:37 | XMS_ITS | Encounter Summary ---
Author Organization [facility] Address [address] [place] [address] Care Team Providers Care Electrical Service Technician Name Role Phone Asher Hammonds MD Primary Care Provider Unavailab le Encounter Details Date Type Department Care Team (Late st Contact Info) Description 07/10/2001 Outpatient Historical [facility] Medicine [place] [address] [place] [address] [address] [place] [address] Asher Hammonds MD NO ADDRESS ON FILE Social History Tobacco Use Types Packs/Day Years Used Date Smoking Tobacco: Never Assessed Comments Unknown Sex and Gender Information Value Date Recorded Sex Assigned at Not on file Legal Sex Female 5:11 AM HEAVY CLEANER Gender Identity Not on file Sexual Orientation Not on file documented as of this encounter Plan of Treatment Not on file documented as of this encounter Visit Diagnoses Not on filedocumented in this encounter Care Teams Electrical Service Technician Relationship Specialty Start Date End Date Asher Hammonds MD PCP - General 10/04/12 documented as of this encounter
--- OUTSIDE RECORDS SUMMARY | 2025-03-14 07:37 | XMS_ITS | Encounter Summary ---
Author Organization [facility] Address [address] [place] [address] Care Team Providers Care Manager Community Development Name Role Phone Asher Hammonds MD Primary Care Provider Unavailab le Encounter Details Date Type Department Care Team (Late st Contact Info) Description 04/19/2006 Outpatient Historical [facility] Medicine [place] [address] [place] [address] [address] [place] [address] Asher Hammonds MD NO ADDRESS ON FILE Social History Tobacco Use Types Packs/Day Years Used Date Smoking Tobacco: Never Assessed Comments Unknown Sex and Gender Information Value Date Recorded Sex Assigned at Not on file Legal Sex Female 5:11 AM JUNIOR QA ANALYST Gender Identity Not on file Sexual Orientation Not on file documented as of this encounter Plan of Treatment Not on file documented as of this encounter Visit Diagnoses Not on filedocumented in this encounter Care Teams Manager Community Development Relationship Specialty Start Date End Date Asher Hammonds MD PCP - General 10/04/12 documented as of this encounter
--- OUTSIDE RECORDS SUMMARY | 2025-03-14 07:37 | XMS_ITS | Encounter Summary ---
Author Organization [facility] Address [address] [place] [address] Care Team Providers Care Plastics Production Machine Operator Name Role Phone Asher Hammonds MD Primary Care Provider Unavailab le Encounter Details Date Type Department Care Team (Late st Contact Info) Description 04/01/2002 Outpatient Historical [facility] Medicine [place] [address] [place] [address] [address] [place] [address] Asher Hammonds MD NO ADDRESS ON FILE Social History Tobacco Use Types Packs/Day Years Used Date Smoking Tobacco: Never Assessed Comments Unknown Sex and Gender Information Value Date Recorded Sex Assigned at Not on file Legal Sex Female 5:11 AM MANAGER INTEGRATION Gender Identity Not on file Sexual Orientation Not on file documented as of this encounter Plan of Treatment Not on file documented as of this encounter Visit Diagnoses Not on filedocumented in this encounter Care Teams Plastics Production Machine Operator Relationship Specialty Start Date End Date Asher Hammonds MD PCP - General 10/04/12 documented as of this encounter
--- OUTSIDE RECORDS SUMMARY | 2025-03-14 07:37 | XMS_ITS | Encounter Summary ---
Author Organization [facility] Address [address] [place] [address] Care Team Providers Care Residential Installer Name Role Phone Asher Hammonds MD Primary Care Provider Unavailab le Encounter Details Date Type Department Care Team (Late st Contact Info) Description 08/17/2001 Outpatient Historical [facility] [place] [address] [facility] [address] [place] [address] Dillan Chowdhury MD [address] [place] [address] Social History Tobacco Use Types Packs/Day Years Used Date Smoking Tobacco: Never Assessed Comments Unknown Sex and Gender Information Value Date Recorded Sex Assigned at Not on file Legal Sex Female 5:11 AM LEAD QUALITY TECHNICIAN Gender Identity Not on file Sexual Orientation Not on file documented as of this encounter Plan of Treatment Not on file documented as of this encounter Visit Diagnoses Not on filedocumented in this encounter Care Teams Residential Installer Relationship Specialty Start Date End Date Asher Hammonds MD PCP - General 10/04/12 documented as of this encounter
--- OUTSIDE RECORDS SUMMARY | 2025-03-14 07:37 | XMS_ITS | Encounter Summary ---
Author Organization [facility] Address [address] [place] [address] Care Team Providers Care Fire Control Technician G Name Role Phone Asher Hammonds MD Primary Care Provider Unavailab le Encounter Details Date Type Department Care Team (Late st Contact Info) Description 06/26/2007 Orders Only [facility] Medicine [place] [address] [place] [address] Asher Hammonds MD NO ADDRESS ON FILE Social History Tobacco Use Types Packs/Day Years Used Date Smoking Tobacco: Never Assessed Comments Unknown Sex and Gender Information Value Date Recorded Sex Assigned at Not on file Legal Sex Female 5:11 AM TIRE RETREADER Gender Identity Not on file Sexual Orientation Not on file documented as of this encounter Progress Notes * Asher Hammonds MD - 12/20/2007 6:56 PM CDT NURSE NAME: Blanca Stahl A WEIGHT: 216lbs. BLOOD PRESSURE: 110/88. Right Arm Sitting PULSE: 84. Right Radial, Regular RESPIRATIONS: 16. TEMPERATURE: 97.6??f. Tympanic HEIGHT: 5ft0in. ALLERGIES: Allergies were reviewed. MEDICATIONS: Medications may have changed. Dr cecelia review medications. TOBACCO USE: Patient does not currently use tobacco. CHIEF COMPLAINT Patient here for medication management.--discuss her termination letter--patient states she has appt set up to see psychiatrist July 11.--patient is currently unemployed--appliedfor disability --states she does not feel as anxious since quitting her job. HISTORY: HISTORY: 300.00-ANXIETY The condition remains stable. The patient denies excessive crying, a persistent feeling of sadness and hopelessness, and fatigue. No complications noted from the medication presently being used. 780.52-INSOMNIA The insomnia is stable. The patient continues to experience lack of sleep. No complications noted from the medication presently being used. 784.0-HEADACHE The patient relates that the headaches are stable. V58.69-PIGMENT PUSHER USE OF OTHER MEDICATION(S) The patient is on extermination inspector use of medications and needs to be monitored on a regular basis. CURRENT PROBLEM LIST: 300.00 ANXIETY 300.3 OBSESSIVE-COMPULSIVE DISORDERS 300.4 NEUROTIC DISORDERS 372.00 CONJUNCTIVITIS 448.1 NEVUS, NON-NEOPLASTIC 465.9 UPPER RESPIRATORY INFECTION 530.81 GASTROESOPHAGEAL REFLUX (GERD) 681.00 CELLULITIS AND [...] V06.5 NEED FOR VACC TETANUS-DIPHTHERIA (TD) V58.69 PIGMENT PUSHER USE OF OTHER MEDICATION(S) CURRENT ALLERGY LIST: MACROBID PCN SULFA DRUGS [...] or hematochezia.. Patient's history reviewed; no changes. PAST MEDICAL HISTORY: MEDICAL: Depression. SURGICAL: No previous surgery. CHILDHOOD DISEASES: Normal childhood diseases. ALLERGIES/ADVERSE REACTIONS: Penicillins, sulfa drugs.macrobid FAMILY HISTORY: SOCIAL HISTORY: MARITAL HISTORY: MARITAL STATUS: TOBACCO USE: DISCUSSED SMOKING: non smoker. OCCUPATION: . OCCUPATION: unemployed ALCOHOL: DISCUSSED ALCOHOL: social. ILLICIT DRUG USE: [...] of motion. Normal stability, strength and tone. PSYCHIATRIC: Appropriate judgment, IMPAIRED INSIGHT, oriented to person, place, and time, normal recent and remote memory, normal attention and concentration, normal abstract reasoning, language normal, ANXIOUS. ASSESSMENT/PLAN: 300.00-ANXIETY ASSESSMENT: The patient's anxiety remains stable. MEDICATIONS: ATIVAN ORAL TABLET 2 MG, 1 Every Eight Hours, As Needed, 90 Dispensed, 30 Duration/Days Supply, status: CONTINUED, 06/26/2007. 300.0-OGIOMZRQY-JHTLPTPGOP DISORDERS ASSESSMENT: The patient's obsessive-compulsive behavior remain stable. MEDICATIONS: WELLBUTRIN SR ORAL TABLET 12 HR 150 MG, 1 Two Times A Day, 60 Dispensed, 5 Fills, 30 Duration/Days Supply, status: CONTINUED, 05/29/2007. CYMBALTA ORAL CAPSULE ENTERIC COATED 60 MG, 1 Two Times A Day, 60 Dispensed, 30 Duration/Days Supply, 60 samples given, status: NEW PRESCRIPTION, 02/05/2007. decrease to 1 q am 530.81-GASTROESOPHAGEAL REFLUX (GERD) ASSESSMENT: The patient's reflux esophagitis continues to remain stable. MEDICATIONS: ACIPHEX ORAL TABLET ENTERIC COATED 20 MG, one daily as directed, 30 Dispensed, status: NEW PRESCRIPTION, 06/13/2006. 780.52-INSOMNIA ASSESSMENT: The patient's insomnia continues to remain stable. STATUS: MEDICATIONS: HYDROXYZINE HCL ORAL TABLET 50 MG, 2 Every Day At Bedtime, 60 Dispensed, 5 Fills, 30 Duration/Days Supply, status: CONTINUED, 05/29/2007. 784.0-HEADACHE ASSESSMENT: The patient's headaches are stable. RETURN VISIT: No return visit necessary. Electronically Signed by: Asher Hammonds MD on , June 28, 2007 documented in this encounter Plan of Treatment Not on file documented as of this encounter Visit Diagnoses Not on filedocumented in this encounter Care Teams Fire Control Technician G Relationship Specialty Start Date End Date Asher Hammonds MD PCP - General 10/04/12 documented as of this encounter
--- OUTSIDE RECORDS SUMMARY | 2025-03-14 07:37 | XMS_ITS | Encounter Summary ---
Author Organization [facility] Address [address] [place] [address] Care Team Providers Care Armhole Presser Name Role Phone Asher Hammonds MD Primary Care Provider Unavailab le Encounter Details Date Type Department Care Team (Late st Contact Info) Description 02/18/2002 Outpatient Historical [facility] Medicine [place] [address] [place] [address] [address] [place] [address] Asher Hammonds MD NO ADDRESS ON FILE Social History Tobacco Use Types Packs/Day Years Used Date Smoking Tobacco: Never Assessed Comments Unknown Sex and Gender Information Value Date Recorded Sex Assigned at Not on file Legal Sex Female 5:11 AM DIGITAL DESIGNER Gender Identity Not on file Sexual Orientation Not on file documented as of this encounter Plan of Treatment Not on file documented as of this encounter Visit Diagnoses Not on filedocumented in this encounter Care Teams Armhole Presser Relationship Specialty Start Date End Date Asher Hammonds MD PCP - General 10/04/12 documented as of this encounter
--- OUTSIDE RECORDS SUMMARY | 2025-03-14 07:37 | XMS_ITS | Encounter Summary ---
Author Organization [facility] Address [address] [place] [address] Care Team Providers Care Story Analyst Name Role Phone Asher Hammonds MD Primary Care Provider Unavailab le Encounter Details Date Type Department Care Team (Late st Contact Info) Description 07/20/2007 Orders Only [facility] Medicine [place] [address] [place] [address] [address] [place] [address] Asher Hammonds MD NO ADDRESS ON FILE Social History Tobacco Use Types Packs/Day Years Used Date Smoking Tobacco: Never Assessed Comments Unknown Sex and Gender Information Value Date Recorded Sex Assigned at Not on file Legal Sex Female 5:11 AM FAMILY SERVICES SPECIALIST Gender Identity Not on file Sexual Orientation Not on file documented as of this encounter Plan of Treatment Not on file documented as of this encounter Visit Diagnoses Not on filedocumented in this encounter Care Teams Story Analyst Relationship Specialty Start Date End Date Asher Hammonds MD PCP - General 10/04/12 documented as of this encounter
--- OUTSIDE RECORDS SUMMARY | 2025-03-14 07:37 | XMS_ITS | Encounter Summary ---
Author Organization [facility] Address [address] [place] [address] Care Team Providers Care Sales Account Associate Name Role Phone Asher Hammonds MD Primary Care Provider Unavailab le Encounter Details Date Type Department Care Team (Late st Contact Info) Description 05/30/2005 Outpatient Historical [facility] Medicine [place] [address] [place] [address] [address] [place] [address] Asher Hammonds MD NO ADDRESS ON FILE Social History Tobacco Use Types Packs/Day Years Used Date Smoking Tobacco: Never Assessed Comments Unknown Sex and Gender Information Value Date Recorded Sex Assigned at Not on file Legal Sex Female 5:11 AM BULL LADLE TENDER Gender Identity Not on file Sexual Orientation Not on file documented as of this encounter Last Filed Vital Signs Vital Sign Reading Time Taken Comments Blood Pressure 100/68 05/30/2005 4:15 PM CDT Pulse 76 05/30/2005 4:15 PM CDT Temperature 37.3 C (99.1 F) 05/30/2005 4:15 PM CDT Respiratory Rate 16 05/30/2005 4:15 PM CDT Oxygen Saturation - - Inhaled Oxygen Concentration - - Weight 86.2 kg (190 lb) 05/30/2005 4:15 PM CDT Height 157.5 cm (5' 2) 05/30/2005 4:15 PM CDT Body Mass Index 34.75 05/30/2005 4:15 PM CDT documented in this encounter Plan of Treatment Not on file documented as of this encounter Visit Diagnoses Not on filedocumented in this encounter Care Teams Sales Account Associate Relationship Specialty Start Date End Date Asher Hammonds MD PCP - General 10/04/12 documented as of this encounter
--- OUTSIDE RECORDS SUMMARY | 2025-03-14 07:37 | XMS_ITS | Encounter Summary ---
Author Organization [facility] Address [address] [place] [address] Care Team Providers Care Toxicology Supervisor Name Role Phone Asher Hammonds MD Primary Care Provider Unavailab le Encounter Details Date Type Department Care Team (Late st Contact Info) Description 12/10/2001 Outpatient Historical [facility] Medicine [place] [address] [place] [address] [address] [place] [address] Asher Hammonds MD NO ADDRESS ON FILE Social History Tobacco Use Types Packs/Day Years Used Date Smoking Tobacco: Never Assessed Comments Unknown Sex and Gender Information Value Date Recorded Sex Assigned at Not on file Legal Sex Female 5:11 AM PUTAWAY DRIVER Gender Identity Not on file Sexual Orientation Not on file documented as of this encounter Plan of Treatment Not on file documented as of this encounter Visit Diagnoses Not on filedocumented in this encounter Care Teams Toxicology Supervisor Relationship Specialty Start Date End Date Asher Hammonds MD PCP - General 10/04/12 documented as of this encounter
--- OUTSIDE RECORDS SUMMARY | 2025-03-14 07:37 | XMS_ITS | Encounter Summary ---
Author Organization [facility] Address [address] [place] [address] Care Team Providers Care Character Actress Name Role Phone Asher Hammonds MD Primary Care Provider Unavailab le Encounter Details Date Type Department Care Team (Late st Contact Info) Description 07/03/2001 Outpatient Historical [facility] Medicine [place] [address] [place] [address] [address] [place] [address] Asher Hammonds MD NO ADDRESS ON FILE Social History Tobacco Use Types Packs/Day Years Used Date Smoking Tobacco: Never Assessed Comments Unknown Sex and Gender Information Value Date Recorded Sex Assigned at Not on file Legal Sex Female 5:11 AM VP SCIENTIFIC AFFAIRS Gender Identity Not on file Sexual Orientation Not on file documented as of this encounter Plan of Treatment Not on file documented as of this encounter Visit Diagnoses Not on filedocumented in this encounter Care Teams Character Actress Relationship Specialty Start Date End Date Asher Hammonds MD PCP - General 10/04/12 documented as of this encounter
--- OUTSIDE RECORDS SUMMARY | 2025-03-14 07:37 | XMS_ITS | Encounter Summary ---
Author Organization [facility] Address [address] [place] [address] Care Team Providers Care Payroll Director Name Role Phone Asher Hammonds MD Primary Care Provider Unavailab le Encounter Details Date Type Department Care Team (Late st Contact Info) Description 05/02/2005 Outpatient Historical [facility] Medicine [place] [address] [place] [address] [address] [place] [address] Asher Hammonds MD NO ADDRESS ON FILE Social History Tobacco Use Types Packs/Day Years Used Date Smoking Tobacco: Never Assessed Comments Unknown Sex and Gender Information Value Date Recorded Sex Assigned at Not on file Legal Sex Female 5:11 AM RECYCLING OPERATOR Gender Identity Not on file Sexual Orientation Not on file documented as of this encounter Plan of Treatment Not on file documented as of this encounter Visit Diagnoses Not on filedocumented in this encounter Care Teams Payroll Director Relationship Specialty Start Date End Date Asher Hammonds MD PCP - General 10/04/12 documented as of this encounter
--- OUTSIDE RECORDS SUMMARY | 2025-03-14 07:37 | XMS_ITS | Encounter Summary ---
Author Organization [facility] Address [address] [place] [address] Care Team Providers Care Quality Control Lab Tech Name Role Phone Asher Hammonds MD Primary Care Provider Unavailab le Encounter Details Date Type Department Care Team (Late st Contact Info) Description 06/26/2007 Outpatient Historical [facility] Medicine [place] [address] [place] [address] [address] [place] [address] Asher Hammonds MD NO ADDRESS ON FILE Social History Tobacco Use Types Packs/Day Years Used Date Smoking Tobacco: Never Assessed Comments Unknown Sex and Gender Information Value Date Recorded Sex Assigned at Not on file Legal Sex Female 5:11 AM CLAIM ADJUSTER Gender Identity Not on file Sexual Orientation Not on file documented as of this encounter Last Filed Vital Signs Vital Sign Reading Time Taken Comments Blood Pressure 110/88 06/26/2007 4:15 PM CLAIM ADJUSTER Pulse 84 06/26/2007 4:15 PM CLAIM ADJUSTER Temperature 36.4 C (97.6 F) 06/26/2007 4:15 PM CLAIM ADJUSTER Respiratory Rate 16 06/26/2007 4:15 PM CLAIM ADJUSTER Oxygen Saturation - - Inhaled Oxygen Concentration - - Weight 98 kg (216 lb) 06/26/2007 4:15 PM CLAIM ADJUSTER Height 152.4 cm (5') 06/26/2007 4:15 PM CLAIM ADJUSTER Body Mass Index 42.18 06/26/2007 4:15 PM CLAIM ADJUSTER documented in this encounter Plan of Treatment Not on file documented as of this encounter Visit Diagnoses Not on filedocumented in this encounter Care Teams Quality Control Lab Tech Relationship Specialty Start Date End Date Asher Hammonds MD PCP - General 10/04/12 documented as of this encounter
--- OUTSIDE RECORDS SUMMARY | 2025-03-14 07:37 | XMS_ITS | Encounter Summary ---
Author Organization [facility] Address [address] [place] [address] Care Team Providers Care Hardwood Sawyer Name Role Phone Asher Hammonds MD Primary Care Provider Unavailab le Encounter Details Date Type Department Care Team (Late st Contact Info) Description 04/20/2002 Outpatient Historical [facility] Clay De Santiago MD NO ADDRESS ON FILE URIN TRACT INFECTION NOS (Primary Dx) Social History Tobacco Use Types Packs/Day Years Used Date Smoking Tobacco: Never Assessed Comments Unknown Sex and Gender Information Value Date Recorded Sex Assigned at Not on file Legal Sex Female 5:11 AM BARREL RAISER Gender Identity Not on file Sexual Orientation Not on file documented as of this encounter Plan of Treatment Not on file documented as of this encounter Visit Diagnoses Diagnosis Urinary tract infection, site not specified- Primary documented in this encounter Care Teams Hardwood Sawyer Relationship Specialty Start Date End Date Asher Hammonds MD PCP - General 10/04/12 documented as of this encounter
--- OUTSIDE RECORDS SUMMARY | 2025-03-14 07:37 | XMS_ITS | Encounter Summary ---
Author Organization [facility] Address [address] [place] [address] Care Team Providers Care Produce Shipper Name Role Phone Asher Hammonds MD Primary Care Provider Unavailab le Encounter Details Date Type Department Care Team (Late st Contact Info) Description 08/31/2001 Outpatient Historical [facility] Medicine [place] [address] [place] [address] [address] [place] [address] Asher Hammonds MD NO ADDRESS ON FILE Social History Tobacco Use Types Packs/Day Years Used Date Smoking Tobacco: Never Assessed Comments Unknown Sex and Gender Information Value Date Recorded Sex Assigned at Not on file Legal Sex Female 5:11 AM WOODYARD CRANE OPERATOR Gender Identity Not on file Sexual Orientation Not on file documented as of this encounter Plan of Treatment Not on file documented as of this encounter Visit Diagnoses Not on filedocumented in this encounter Care Teams Produce Shipper Relationship Specialty Start Date End Date Asher Hammonds MD PCP - General 10/04/12 documented as of this encounter
--- OUTSIDE RECORDS SUMMARY | 2025-03-14 07:37 | XMS_ITS | Encounter Summary ---
Author Organization [facility] Address [address] [place] [address] Care Team Providers Care Global Sourcing Manager Name Role Phone Asher Hammonds MD Primary Care Provider Unavailab le Encounter Details Date Type Department Care Team (Late st Contact Info) Description 03/13/2006 Outpatient Historical [facility] Medicine [place] [address] [place] [address] [address] [place] [address] Asher Hammonds MD NO ADDRESS ON FILE Social History Tobacco Use Types Packs/Day Years Used Date Smoking Tobacco: Never Assessed Comments Unknown Sex and Gender Information Value Date Recorded Sex Assigned at Not on file Legal Sex Female 5:11 AM COVER MAT MACHINE OPERATOR Gender Identity Not on file Sexual Orientation Not on file documented as of this encounter Plan of Treatment Not on file documented as of this encounter Visit Diagnoses Not on filedocumented in this encounter Care Teams Global Sourcing Manager Relationship Specialty Start Date End Date Asher Hammonds MD PCP - General 10/04/12 documented as of this encounter
--- OUTSIDE RECORDS SUMMARY | 2025-03-14 07:37 | XMS_ITS | Encounter Summary ---
Author Organization [facility] Address [address] [place] [address] Care Team Providers Care Lead Qa Analyst Name Role Phone Asher Hammonds MD Primary Care Provider Unavailab le Encounter Details Date Type Department Care Team (Late st Contact Info) Description 01/28/2002 Outpatient Historical [facility] Medicine [place] [address] [place] [address] [address] [place] [address] Asher Hammonds MD NO ADDRESS ON FILE Social History Tobacco Use Types Packs/Day Years Used Date Smoking Tobacco: Never Assessed Comments Unknown Sex and Gender Information Value Date Recorded Sex Assigned at Not on file Legal Sex Female 5:11 AM SEED CORE OPERATOR Gender Identity Not on file Sexual Orientation Not on file documented as of this encounter Plan of Treatment Not on file documented as of this encounter Visit Diagnoses Not on filedocumented in this encounter Care Teams Lead Qa Analyst Relationship Specialty Start Date End Date Asher Hammonds MD PCP - General 10/04/12 documented as of this encounter
--- OUTSIDE RECORDS SUMMARY | 2025-03-14 07:37 | XMS_ITS | Encounter Summary ---
Author Organization [facility] Address [address] [place] [address] Care Team Providers Care Lumite Injector Name Role Phone Asher Hammonds MD Primary Care Provider Unavailab le Encounter Details Date Type Department Care Team (Late st Contact Info) Description 06/04/2007 Emergency [facility] Asher Hammonds MD NO ADDRESS ON FILE Dysthymic Disorder (Primary Dx) Social History Tobacco Use Types Packs/Day Years Used Date Smoking Tobacco: Never Assessed Comments Unknown Sex and Gender Information Value Date Recorded Sex Assigned at Not on file Legal Sex Female 5:11 AM DIRECTOR OF STRATEGIC SALES Gender Identity Not on file Sexual Orientation Not on file documented as of this encounter Plan of Treatment Not on file documented as of this encounter Visit Diagnoses Diagnosis Dysthymic disorder- Primary documented in this encounter Care Teams Lumite Injector Relationship Specialty Start Date End Date Asher Hammonds MD PCP - General 10/04/12 documented as of this encounter
--- OUTSIDE RECORDS SUMMARY | 2025-03-14 07:37 | XMS_ITS | Encounter Summary ---
Author Organization [facility] Address [address] [place] [address] Care Team Providers Care Analyst Sales Name Role Phone Asher Hammonds MD Primary Care Provider Unavailab le Encounter Details Date Type Department Care Team (Late st Contact Info) Description 08/24/2007 Emergency [facility] [place] Authorized P NO ADDRESS ON FILE Asher Hammonds MD NO ADDRESS ON FILE Social History Tobacco Use Types Packs/Day Years Used Date Smoking Tobacco: Never Assessed Comments Unknown Sex and Gender Information Value Date Recorded Sex Assigned at Not on file Legal Sex Female 5:11 AM BALING MACHINE OPERATOR Gender Identity Not on file Sexual Orientation Not on file documented as of this encounter Plan of Treatment Not on file documented as of this encounter Visit Diagnoses Not on filedocumented in this encounter Care Teams Analyst Sales Relationship Specialty Start Date End Date Asher Hammonds MD PCP - General 10/04/12 documented as of this encounter
--- OUTSIDE RECORDS SUMMARY | 2025-03-14 07:37 | XMS_ITS | Encounter Summary ---
Author Organization [facility] Address [address] [place] [address] Care Team Providers Care Airplane Technician Name Role Phone Asher Hammonds MD Primary Care Provider Unavailab le Encounter Details Date Type Department Care Team (Late st Contact Info) Description 09/09/2002 Outpatient Historical [facility] Medicine [place] [address] [place] [address] [place] [address] Asher Hammonds MD NO ADDRESS ON FILE Social History Tobacco Use Types Packs/Day Years Used Date Smoking Tobacco: Never Assessed Comments Unknown Sex and Gender Information Value Date Recorded Sex Assigned at Not on file Legal Sex Female 5:11 AM PSYCHOLOGY PROFESSOR Gender Identity Not on file Sexual Orientation Not on file documented as of this encounter Plan of Treatment Not on file documented as of this encounter Visit Diagnoses Not on filedocumented in this encounter Care Teams Airplane Technician Relationship Specialty Start Date End Date Asher Hammonds MD PCP - General 10/04/12 documented as of this encounter
--- OUTSIDE RECORDS SUMMARY | 2025-03-14 07:37 | XMS_ITS | Encounter Summary ---
Author Organization [facility] Address [address] [place] [address] Care Team Providers Care Tool Maker Name Role Phone Asher Hammonds MD Primary Care Provider Unavailab le Encounter Details Date Type Department Care Team (Late st Contact Info) Description 05/29/2007 Outpatient Historical [facility] [place] [address] [place] [address] [address] [place] [address] Asher Hammonds MD NO ADDRESS ON FILE Social History Tobacco Use Types Packs/Day Years Used Date Smoking Tobacco: Never Assessed Comments Unknown Sex and Gender Information Value Date Recorded Sex Assigned at Not on file Legal Sex Female 5:11 AM PSYCHOLOGY FELLOW Gender Identity Not on file Sexual Orientation Not on file documented as of this encounter Last Filed Vital Signs Vital Sign Reading Time Taken Comments Blood Pressure 120/80 05/29/2007 4:15 PM CDT Pulse 88 05/29/2007 4:15 PM CDT Temperature 36 C (96.8 F) 05/29/2007 4:15 PM CDT Respiratory Rate 16 05/29/2007 4:15 PM CDT Oxygen Saturation - - Inhaled Oxygen Concentration - - Weight 99.3 kg (219 lb) 05/29/2007 4:15 PM CDT Height 152.4 cm (5') 05/29/2007 4:15 PM CDT Body Mass Index 42.77 05/29/2007 4:15 PM CDT documented in this encounter Plan of Treatment Not on file documented as of this encounter Visit Diagnoses Not on filedocumented in this encounter Care Teams Tool Maker Relationship Specialty Start Date End Date Asher Hammonds MD PCP - General 10/04/12 documented as of this encounter
--- OUTSIDE RECORDS SUMMARY | 2025-03-14 07:37 | XMS_ITS | Encounter Summary ---
Author Organization [facility] Address [address] [place] [address] Care Team Providers Care Jail Keeper Name Role Phone Asher Hammonds MD Primary Care Provider Unavailab le Encounter Details Date Type Department Care Team (Late st Contact Info) Description 01/07/2002 Outpatient Historical [facility] Medicine [place] [address] [place] [address] [address] [place] [address] Asher Hammonds MD NO ADDRESS ON FILE Social History Tobacco Use Types Packs/Day Years Used Date Smoking Tobacco: Never Assessed Comments Unknown Sex and Gender Information Value Date Recorded Sex Assigned at Not on file Legal Sex Female 5:11 AM SECURITIES SETTLEMENT PROCESSOR Gender Identity Not on file Sexual Orientation Not on file documented as of this encounter Plan of Treatment Not on file documented as of this encounter Visit Diagnoses Not on filedocumented in this encounter Care Teams Jail Keeper Relationship Specialty Start Date End Date Asher Hammonds MD PCP - General 10/04/12 documented as of this encounter
--- OUTSIDE RECORDS SUMMARY | 2025-03-14 07:37 | XMS_ITS | Encounter Summary ---
Author Organization [facility] Address [address] [place] [address] Care Team Providers Care Preschool Assistant Name Role Phone Asher Hammonds MD Primary Care Provider Unavailab le Encounter Details Date Type Department Care Team (Late st Contact Info) Description 07/29/2002 Outpatient Historical [facility] Medicine [place] [address] [place] [address] [address] [place] [address] Asher Hammonds MD NO ADDRESS ON FILE Social History Tobacco Use Types Packs/Day Years Used Date Smoking Tobacco: Never Assessed Comments Unknown Sex and Gender Information Value Date Recorded Sex Assigned at Not on file Legal Sex Female 5:11 AM SPEED BELT SANDER Gender Identity Not on file Sexual Orientation Not on file documented as of this encounter Plan of Treatment Not on file documented as of this encounter Visit Diagnoses Not on filedocumented in this encounter Care Teams Preschool Assistant Relationship Specialty Start Date End Date Asher Hammonds MD PCP - General 10/04/12 documented as of this encounter
--- OUTSIDE RECORDS SUMMARY | 2025-03-14 07:37 | XMS_ITS | Encounter Summary ---
Author Organization [facility] Address [address] [place] [address] Care Team Providers Care Daycare Teacher Name Role Phone Asher Hammonds MD Primary Care Provider Unavailab le Encounter Details Date Type Department Care Team (Late st Contact Info) Description 05/16/2006 Outpatient Historical [facility] Medicine [place] [address] [place] [address] [address] [place] [address] Asher Hammonds MD NO ADDRESS ON FILE Social History Tobacco Use Types Packs/Day Years Used Date Smoking Tobacco: Never Assessed Comments Unknown Sex and Gender Information Value Date Recorded Sex Assigned at Not on file Legal Sex Female 5:11 AM HOSPITALITY HOUSEKEEPER Gender Identity Not on file Sexual Orientation Not on file documented as of this encounter Plan of Treatment Not on file documented as of this encounter Visit Diagnoses Not on filedocumented in this encounter Care Teams Daycare Teacher Relationship Specialty Start Date End Date Asher Hammonds MD PCP - General 10/04/12 documented as of this encounter
--- OUTSIDE RECORDS SUMMARY | 2025-03-14 07:37 | XMS_ITS | Encounter Summary ---
Author Organization [facility] Address [address] [place] [address] Care Team Providers Care Senior Compliance Officer Name Role Phone Asher Hammonds MD Primary Care Provider Unavailab le Encounter Details Date Type Department Care Team (Latest Contact Info) Description 04/06/2006 Outpatient Historical [facility] Asher Hammonds MD NO ADDRESS ON FILE Pain in Joint, Ankle and Foot (Primary Dx) Social History Tobacco Use Types Packs/Day Years Used Date Smoking Tobacco: Never Assessed Comments Unknown Sex and Gender Information Value Date Recorded Sex Assigned at Not on file Legal Sex Female 5:11 AM OBSTETRICIAN Gender Identity Not on file Sexual Orientation Not on file documented as of this encounter Plan of Treatment Not on file documented as of this encounter Visit Diagnoses Diagnosis Pain in joint, ankle and foot- Primary documented in this encounter Care Teams Senior Compliance Officer Relationship Specialty Start Date End Date Asher Hammonds MD PCP - General 10/04/12 documented as of this encounter
--- OUTSIDE RECORDS SUMMARY | 2025-03-14 07:37 | XMS_ITS | Encounter Summary ---
Author Organization [facility] Address [address] [place] [address] Care Team Providers Care Underwriter Mortgage Loan Name Role Phone Asher Hammonds MD Primary Care Provider Unavailab le Encounter Details Date Type Department Care Team (Late st Contact Info) Description 10/29/2001 Outpatient Historical [facility] Medicine [place] [address] [place] [address] [address] [place] [address] Asher Hammonds MD NO ADDRESS ON FILE Social History Tobacco Use Types Packs/Day Years Used Date Smoking Tobacco: Never Assessed Comments Unknown Sex and Gender Information Value Date Recorded Sex Assigned at Not on file Legal Sex Female 5:11 AM TITLE INSPECTOR Gender Identity Not on file Sexual Orientation Not on file documented as of this encounter Plan of Treatment Not on file documented as of this encounter Visit Diagnoses Not on filedocumented in this encounter Care Teams Underwriter Mortgage Loan Relationship Specialty Start Date End Date Asher Hammonds MD PCP - General 10/04/12 documented as of this encounter
--- OUTSIDE RECORDS SUMMARY | 2025-03-14 07:37 | XMS_ITS | Encounter Summary ---
Author Organization [facility] Address [address] [place] [address] Care Team Providers Care Consulting Sme Name Role Phone Asher Hammonds MD Primary Care Provider Unavailab le Encounter Details Date Type Department Care Team (Late st Contact Info) Description 11/23/2006 Outpatient Historical [facility] Medicine [place] [address] [place] [address] [address] [place] [address] Asher Hammonds MD NO ADDRESS ON FILE Social History Tobacco Use Types Packs/Day Years Used Date Smoking Tobacco: Never Assessed Comments Unknown Sex and Gender Information Value Date Recorded Sex Assigned at Not on file Legal Sex Female 5:11 AM ICEBOX MAN Gender Identity Not on file Sexual Orientation Not on file documented as of this encounter Last Filed Vital Signs Vital Sign Reading Time Taken Comments Blood Pressure 120/70 11/23/2006 4:15 PM CDT Pulse 80 11/23/2006 4:15 PM CDT Temperature 37.4 C (99.4 F) 11/23/2006 4:15 PM CDT Respiratory Rate 16 11/23/2006 4:15 PM CDT Oxygen Saturation - - Inhaled Oxygen Concentration - - Weight 98.9 kg (218 lb) 11/23/2006 4:15 PM CDT Height 157.5 cm (5' 2) 11/23/2006 4:15 PM CDT Body Mass Index 39.87 11/23/2006 4:15 PM CDT documented in this encounter Plan of Treatment Not on file documented as of this encounter Visit Diagnoses Not on filedocumented in this encounter Care Teams Consulting Sme Relationship Specialty Start Date End Date Asher Hammonds MD PCP - General 10/04/12 documented as of this encounter
--- OUTSIDE RECORDS SUMMARY | 2025-03-14 07:37 | XMS_ITS | Encounter Summary ---
Author Organization [facility] Address [address] [place] [address] Care Team Providers Care Wedding Florist Name Role Phone Asher Hammonds MD Primary Care Provider Unavailab le Encounter Details Date Type Department Care Team (Latest Contact Info) Description 11/23/2006 Outpatient Historical [facility] Medicine [place] [address] [facility] [address] [place] [phone] Asher Hammonds MD NO ADDRESS ON FILE Insomnia, Unspecified (Primary Dx) Social History Tobacco Use Types Packs/Day Years Used Date Smoking Tobacco: Never Assessed Comments Unknown Sex and Gender Information Value Date Recorded Sex Assigned at Not on file Legal Sex Female 5:11 AM ESTERS AND EMULSIFIERS 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 Gender Identity Not on file Sexual Orientation Not on file documented as of this encounter Plan of Treatment Not on file documented as of this encounter Procedures Procedure Name Priority Date/Time Associated Diagnosis Comments COMPREHENSIVE METABOLIC PANEL Routine 11/23/2006 4:40 PM CDT documented in this encounter Results * (ABNORMAL) COMPREHENSIVE METABOLIC PANEL (11/23/2006 4:40 PM CDT) GLUCOSE 85 65 - 99 mg/dL INTERFACE SYSTEM CREATININE 0.81 0.51 - 0.95 mg/dL INTERFACE SYSTEM CALCIUM 9.2 8.6 - 10.2 mg/dL INTERFACE SYSTEM AST 19 12 - 32 U/L INTERFACE SYSTEM ALKALINE PHOSPHATASE 67 35 - 104 U/L INTERFACE SYSTEM BILIRUBIN TOTAL 0.6 0.2 - 1.0 mg/dL INTERFACE SYSTEM ALBUMIN 4.2 3.4 - 4.8 g/dL INTERFACE SYSTEM TOTAL PROTEIN 7.0 6.0 - 8.3 g/dL INTERFACE SYSTEM ALT 15 0 - 31 U/L INTERFACE SYSTEM BUN 5(L) 6 - 20 mg/dL INTERFACE SYSTEM SODIUM 139 135 - 145 mmol/L INTERFACE SYSTEM POTASSIUM 4.1 3.5 - 4.9 mmol/L INTERFACE SYSTEM CHLORIDE 102 96 - 108 mmol/L INTERFACE SYSTEM CO2 27 22 - 30 mmol/L INTERFACE SYSTEM GFR, >60 >=60 mL/min/1.7 sq meter INTERFACE SYSTEM GFR >60 >=60 mL/min/1.7 sq meter INTERFACE SYSTEM Comment: Estimated GFR rate interpretative information for both Americans and non- Americans is available on the [facility] Intranet at: [email or web address] Select: Lab Policies and Procedures Select: Reference Ranges - GFR 11/23/2006 4:40 PM CDT us Asher Hammonds MD CHEMISTRY ORDERABLES Edited INTERFACE SYSTEM Refer to clinic/hospital department documented in this encounter Visit Diagnoses Diagnosis Insomnia, unspecified- Primary documented in this encounter Care Teams Wedding Florist Relationship Specialty Start Date End Date Asher Hammonds MD PCP - General 10/04/12 documented as of this encounter
--- OUTSIDE RECORDS SUMMARY | 2025-03-14 07:37 | XMS_ITS | Encounter Summary ---
Author Organization [facility] Address [address] [place] [address] Care Team Providers Care Photo Lab Manager Name Role Phone Asher Hammonds MD Primary Care Provider Unavailab le Encounter Details Date Type Department Care Team (Late st Contact Info) Description 05/13/2002 Outpatient Historical [facility] Medicine [place] [address] [place] [address] [address] [place] [address] Asher Hammonds MD NO ADDRESS ON FILE Social History Tobacco Use Types Packs/Day Years Used Date Smoking Tobacco: Never Assessed Comments Unknown Sex and Gender Information Value Date Recorded Sex Assigned at Not on file Legal Sex Female 5:11 AM RITUAL CIRCUMCISER Gender Identity Not on file Sexual Orientation Not on file documented as of this encounter Plan of Treatment Not on file documented as of this encounter Visit Diagnoses Not on filedocumented in this encounter Care Teams Photo Lab Manager Relationship Specialty Start Date End Date Asher Hammonds MD PCP - General 10/04/12 documented as of this encounter
--- OUTSIDE RECORDS SUMMARY | 2025-03-14 07:37 | XMS_ITS | Encounter Summary ---
Author Organization [facility] Address 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
--- OUTSIDE RECORDS SUMMARY | 2025-03-14 07:37 | XMS_ITS | Encounter Summary ---
Author Organization [facility] Address [address] [place] [address] Care Team Providers Care Hemstitcher Name Role Phone Asher Hammonds MD Primary Care Provider Unavailab le Encounter Details Date Type Department Care Team (Late st Contact Info) Description 05/29/2007 Orders Only [facility] Medicine [place] [address] [facility] [address] [place] [address] Asher Hammonds MD NO ADDRESS ON FILE Social History Tobacco Use Types Packs/Day Years Used Date Smoking Tobacco: Never Assessed Comments Unknown Sex and Gender Information Value Date Recorded Sex Assigned at Not on file Legal Sex Female 5:11 AM RN MDS COORDINATOR Gender Identity Not on file Sexual Orientation Not on file documented as of this encounter Progress Notes * Asher Hammonds MD - 12/21/2007 1:12 PM CDT NURSE NAME: Blanca Stahl A WEIGHT: 219lbs. BLOOD PRESSURE: 120/80. Right Arm Sitting PULSE: 88. Right Radial, Regular RESPIRATIONS: 16. TEMPERATURE: 96.8??f. Tympanic HEIGHT: 5ft0in. ALLERGIES: Allergies were reviewed. MEDICATIONS: Medications may have changed. Dr rai review medications. TOBACCO USE: Patient does not currently use tobacco. CHIEF COMPLAINT Patient here for medication management.--C/O-URI symptoms--hjrie-nslpszgl-jyvgn symptoms-eyes hurt--feels nauseated- has chills--extreme fatigue HISTORY: HISTORY: 300.00-ANXIETY The condition remains stable. The patient denies excessive crying, a persistent feeling of sadness and hopelessness, and fatigue. No complications noted from the medication presently being used. 300.5-PYFZJAEIA-TFUBFOPAHT DISORDERS The condition remains stable. The patient [...] noted from the medication presently being used. V58.69-RESIDENTIAL USE OF OTHER MEDICATION(S) The patient is on assistant terminal manager use of medications and needs to be [...] V06.5 NEED FOR VACC TETANUS-DIPHTHERIA (TD) V58.69 HOSPICE ADMINISTRATOR USE OF OTHER MEDICATION(S) CURRENT MEDICATION LIST: ASPIRIN ORAL TABLET CHEWABLE 81 MG, 1 Every Day PALAK-D ORAL TABLET 12 HR 60-120 MG, 1 Two Times A Day B-6 FOLIC ACID ORAL CAPSULE CONVENTIONAL 400-1000-50 MCG-MCG-MG, 1 daily MULTIVITAMINS ORAL TABLET, one daily NASAL DECONGESTANT ORAL TABLET 10 MG, prn as needed ACIPHEX ORAL TABLET ENTERIC COATED 20 MG, one daily as directed INDERAL LA ORAL CAPSULE 24 HR 80 MG, 1 Every Day At Bedtime CYMBALTA ORAL CAPSULE ENTERIC COATED 60 MG, 1 Two Times A Day ACYCLOVIR ORAL TABLET 800 MG, 1 po 5 times a day for 7 days XANAX ORAL TABLET 2 MG, 1/2 to 1 tablet po every six hours PROMETHAZINE HCL ORAL TABLET 25 MG, 1 tab po qid prn nausea HYDROXYZINE HCL ORAL TABLET 50 MG, 2 Every Day At Bedtime CIPRO ORAL TABLET 500 MG, 1 Two Times A Day HISTUSSIN HC ORAL SYRUP 5-2-2.5 MG/5ML, 2 Every Six Hours WELLBUTRIN SR ORAL TABLET 12 HR 150 MG, 1 Two Times A Day SEROQUEL ORAL TABLET 100 MG, 4 Every Day At Bedtime ATIVAN ORAL TABLET 2 MG, 1 Every Eight Hours, As Needed CURRENT ALLERGY LIST: MACROBID PCN SULFA DRUGS [...] . 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 ILLICIT DRUG USE: [...] the nose or sinuses is noted. ORAL: MODERATE ERYTHEMATOUS OROPHARYNX WITHOUT EXUDATE. NECK/THYROID: Trachea midline. No thyroid enlargement, tenderness, or mass. No supraclavicular or cervical adenopathy. RESPIRATORY: INCREASED RESPIRATORY EFFORT, RHONCHI HEARD POSTERIORLY AT THE BASE OF BOTH LUNGS. CARDIOVASCULAR: CARDIAC: Regular rhythm. No murmurs, rubs, [...] ASSESSMENT: The patient's anxiety remains stable. MEDICATIONS: CYMBALTA ORAL CAPSULE ENTERIC COATED 60 MG, 1 Two Times A Day, 60 Dispensed, 30 Duration/Days Supply, 60 samples given, status: NEW PRESCRIPTION, 02/05/2007. 300.0-VZCXHBIAK-[id number] DISORDERS ASSESSMENT: The patient's obsessive-compulsive behavior remain stable. MEDICATIONS: WELLBUTRIN SR ORAL TABLET 12 HR 150 MG, 1 Two Times A Day, 60 Dispensed, 5 Fills, 30 Duration/Days Supply, status: CONTINUED, 05/29/2007. SEROQUEL ORAL TABLET 100 MG, 4 Every Day At Bedtime, 120 Dispensed, 5 Fills, 30 Duration/Days Supply, status: CONTINUED, 05/29/2007. 780.52-INSOMNIA ASSESSMENT: The patient's insomnia continues to remain stable. MEDICATIONS: ATIVAN ORAL TABLET 2 MG, 1 Every Eight Hours, As Needed, 60 Dispensed, 30 Duration/Days Supply, status: CONTINUED, 05/25/2007. 784.0-HEADACHE ASSESSMENT: The patient's headaches are stable. 465.9-UPPER RESPIRATORY INFECTION ASSESSMENT: The patient's URI continues to remain stable. MEDICATIONS: PALAK-D ORAL TABLET 12 HR 60-120 MG, 1 Two Times A Day, 60 Dispensed, 5 Fills, 30 Duration/Days Supply, status: CONTINUED, 05/02/2005. RETURN VISIT: Patient instructed to return in 6 weeks. Electronically Signed by: Asher Hammonds MD on May documented in this encounter Plan of Treatment Not on file documented as of this encounter Visit Diagnoses Not on filedocumented in this encounter Care Teams Hemstitcher Relationship Specialty Start Date End Date Asher Hammonds MD PCP - General 10/04/12 documented as of this encounter
--- OUTSIDE RECORDS SUMMARY | 2025-03-14 07:38 | XMS_ITS | Encounter Summary ---
Author Organization [facility] Address [address] [place] [address] Care Team Providers Care Glass Production Machine Operator Name Role Phone Asher Hammonds MD Primary Care Provider Unavailab le Encounter Details Date Type Department Care Team (Late st Contact Info) Description 07/27/2004 Emergency [facility] Luis Angel Chaudhry MD [address] [place] [address] [place] [address] CONCUSSION W/O COMA (Primary Dx) Social History Tobacco Use Types Packs/Day Years Used Date Smoking Tobacco: Never Assessed Comments Unknown Sex and Gender Information Value Date Recorded Sex Assigned at Not on file Legal Sex Female 5:11 AM COMPENSATION CONSULTING 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
--- OUTSIDE RECORDS SUMMARY | 2025-03-14 07:38 | XMS_ITS | Encounter Summary ---
Author Organization [facility] Address [address] [place] [address] Care Team Providers Care Supervisor Cd Area Name Role Phone Asher Hammonds MD Primary Care Provider Unavailab le Encounter Details Date Type Department Care Team (Late st Contact Info) Description 08/02/2005 Outpatient Historical [facility] Medicine [place] [address] [place] [address] [address] [place] [address] Asher Hammonds MD NO ADDRESS ON FILE Social History Tobacco Use Types Packs/Day Years Used Date Smoking Tobacco: Never Assessed Comments Unknown Sex and Gender Information Value Date Recorded Sex Assigned at Not on file Legal Sex Female 5:11 AM 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
--- OUTSIDE RECORDS SUMMARY | 2025-03-14 07:38 | XMS_ITS | Encounter Summary ---
Author Organization [facility] Address [address] [place] [address] Care Team Providers Care Weapons Mechanic Name Role Phone Asher Hammonds MD Primary Care Provider Unavailab le Encounter Details Date Type Department Care Team (Late st Contact Info) Description 01/10/2005 Outpatient Historical [facility] Medicine [place] [address] [place] [address] [address] [place] [address] Asher Hammonds MD NO ADDRESS ON FILE Social History Tobacco Use Types Packs/Day Years Used Date Smoking Tobacco: Never Assessed Comments Unknown Sex and Gender Information Value Date Recorded Sex Assigned at Not on file Legal Sex Female 5:11 AM SAP PAYROLL CONSULTANT Gender Identity Not on file Sexual Orientation Not on file documented as of this encounter Last Filed Vital Signs Vital Sign Reading Time Taken Comments Blood Pressure 120/78 01/10/2005 4:15 PM CDT Pulse 68 01/10/2005 4:15 PM CDT Temperature 36.9 C (98.4 F) 01/10/2005 4:15 PM CDT Respiratory Rate 16 01/10/2005 4:15 PM CDT Oxygen Saturation - - Inhaled Oxygen Concentration - - Weight 75.3 kg (166 lb) 01/10/2005 4:15 PM CDT Height 157.5 cm (5' 2) 01/10/2005 4:15 PM CDT Body Mass Index 30.36 01/10/2005 4:15 PM CDT documented in this encounter Plan of Treatment Not on file documented as of this encounter Visit Diagnoses Not on filedocumented in this encounter Care Teams Weapons Mechanic Relationship Specialty Start Date End Date Asher Hammonds MD PCP - General 10/04/12 documented as of this encounter
--- OUTSIDE RECORDS SUMMARY | 2025-03-14 07:38 | XMS_ITS | Encounter Summary ---
Author Organization [facility] Address [address] [place] [address] Care Team Providers Care Felt Hat Inspector And Packer Name Role Phone Asher Hammonds MD Primary Care Provider Unavailab le Encounter Details Date Type Department Care Team (Late st Contact Info) Description 09/27/2006 Outpatient Historical [facility] Medicine [place] [address] [place] [address] [address] [place] [address] Asher Hammonds MD NO ADDRESS ON FILE Social History Tobacco Use Types Packs/Day Years Used Date Smoking Tobacco: Never Assessed Comments Unknown Sex and Gender Information Value Date Recorded Sex Assigned at Not on file Legal Sex Female 5:11 AM MEDICAL SONOGRAPHER Gender Identity Not on file Sexual Orientation Not on file documented as of this encounter Last Filed Vital Signs Vital Sign Reading Time Taken Comments Blood Pressure 130/76 09/27/2006 4:15 PM MEDICAL SONOGRAPHER Pulse 72 09/27/2006 4:15 PM MEDICAL SONOGRAPHER Temperature 36.6 C (97.9 F) 09/27/2006 4:15 PM MEDICAL SONOGRAPHER Respiratory Rate 16 09/27/2006 4:15 PM MEDICAL SONOGRAPHER Oxygen Saturation - - Inhaled Oxygen Concentration - - Weight 98 kg (216 lb) 09/27/2006 4:15 PM MEDICAL SONOGRAPHER Height 157.5 cm (5' 2) 09/27/2006 4:15 PM MEDICAL SONOGRAPHER Body Mass Index 39.51 09/27/2006 4:15 PM MEDICAL SONOGRAPHER documented in this encounter Plan of Treatment Not on file documented as of this encounter Visit Diagnoses Not on filedocumented in this encounter Care Teams Felt Hat Inspector And Packer Relationship Specialty Start Date End Date Asher Hammonds MD PCP - General 10/04/12 documented as of this encounter
--- OUTSIDE RECORDS SUMMARY | 2025-03-14 07:38 | XMS_ITS | Encounter Summary ---
Author Organization [facility] Address [address] [place] [address] Care Team Providers Care Pulmonary Nurse Practitioner Name Role Phone Asher Hammonds MD Primary Care Provider Unavailab le Encounter Details Date Type Department Care Team (Late st Contact Info) Description 09/03/2005 Outpatient Historical [facility] Adult Hospitalists [address] [address] Alo Saha DO Social History Tobacco Use Types Packs/Day Years Used Date Smoking Tobacco: Never Assessed Comments Unknown Sex and Gender Information Value Date Recorded Sex Assigned at Not on file Legal Sex Female 5:11 AM FIFTH HAND Gender Identity Not on file Sexual Orientation Not on file documented as of this encounter Plan of Treatment Not on file documented as of this encounter Visit Diagnoses Not on filedocumented in this encounter Care Teams Pulmonary Nurse Practitioner Relationship Specialty Start Date End Date Asher Hammonds MD PCP - General 10/04/12 documented as of this encounter
--- OUTSIDE RECORDS SUMMARY | 2025-03-14 07:38 | XMS_ITS | Encounter Summary ---
Author Organization [facility] Address [address] [place] [address] Care Team Providers Care Purchaser Name Role Phone Asher Hammonds MD Primary Care Provider Unavailab le Encounter Details Date Type Department Care Team (Late st Contact Info) Description 06/27/2005 Outpatient Historical [facility] Medicine [place] [address] [place] [address] [address] [place] [id number] Asher Hammonds MD NO ADDRESS ON FILE Social History Tobacco Use Types Packs/Day Years Used Date Smoking Tobacco: Never Assessed Comments Unknown Sex and Gender Information Value Date Recorded Sex Assigned at Not on file Legal Sex Female 5:11 AM CENTRAL OFFICE REPAIRER SUPERVISOR Gender Identity Not on file Sexual Orientation Not on file documented as of this encounter Last Filed Vital Signs Vital Sign Reading Time Taken Comments Blood Pressure 110/76 06/27/2005 4:15 PM CENTRAL OFFICE REPAIRER SUPERVISOR Pulse 80 06/27/2005 4:15 PM CENTRAL OFFICE REPAIRER SUPERVISOR Temperature 36.8 C (98.2 F) 06/27/2005 4:15 PM CENTRAL OFFICE REPAIRER SUPERVISOR Respiratory Rate 16 06/27/2005 4:15 PM CENTRAL OFFICE REPAIRER SUPERVISOR Oxygen Saturation - - Inhaled Oxygen Concentration - - Weight 83.5 kg (184 lb) 06/27/2005 4:15 PM CENTRAL OFFICE REPAIRER SUPERVISOR Height 157.5 cm (5' 2) 06/27/2005 4:15 PM CENTRAL OFFICE REPAIRER SUPERVISOR Body Mass Index 33.65 06/27/2005 4:15 PM CENTRAL OFFICE REPAIRER SUPERVISOR documented in this encounter Plan of Treatment Not on file documented as of this encounter Visit Diagnoses Not on filedocumented in this encounter Care Teams Purchaser Relationship Specialty Start Date End Date Asher Hammonds MD PCP - General 10/04/12 documented as of this encounter
--- OUTSIDE RECORDS SUMMARY | 2025-03-14 07:38 | XMS_ITS | Encounter Summary ---
Author Organization [facility] Address [address] [place] [address] Care Team Providers Care Carpenter Assistant Installer Name Role Phone Asher Hammonds MD Primary Care Provider Unavailab le Encounter Details Date Type Department Care Team (Late st Contact Info) Description 02/14/2005 Outpatient Historical [facility] Medicine [place] [address] [place] [address] [address] [place] [address] Asher Hammonds MD NO ADDRESS ON FILE Social History Tobacco Use Types Packs/Day Years Used Date Smoking Tobacco: Never Assessed Comments Unknown Sex and Gender Information Value Date Recorded Sex Assigned at Not on file Legal Sex Female 5:11 AM RUBBERIZING MECHANIC Gender Identity Not on file Sexual Orientation Not on file documented as of this encounter Last Filed Vital Signs Vital Sign Reading Time Taken Comments Blood Pressure 110/58 02/14/2005 4:15 PM CDT Pulse 84 02/14/2005 4:15 PM CDT Temperature 37.1 C (98.8 F) 02/14/2005 4:15 PM CDT Respiratory Rate 16 02/14/2005 4:15 PM CDT Oxygen Saturation - - Inhaled Oxygen Concentration - - Weight 77.1 kg (170 lb) 02/14/2005 4:15 PM CDT Height 157.5 cm (5' 2) 02/14/2005 4:15 PM CDT Body Mass Index 31.09 02/14/2005 4:15 PM CDT documented in this encounter Plan of Treatment Not on file documented as of this encounter Visit Diagnoses Not on filedocumented in this encounter Care Teams Carpenter Assistant Installer Relationship Specialty Start Date End Date Asher Hammonds MD PCP - General 10/04/12 documented as of this encounter
--- OUTSIDE RECORDS SUMMARY | 2025-03-14 07:38 | XMS_ITS | Encounter Summary ---
Author Organization [facility] Address [address] [place] [address] Care Team Providers Care Per Diem Nurse Name Role Phone Asher Hammonds MD Primary Care Provider Unavailab le Encounter Details Date Type Department Care Team (Late st Contact Info) Description 06/01/2004 Outpatient Historical [facility] Medicine [place] [address] [place] [address] [address] [place] [address] Asher Hammonds MD NO ADDRESS ON FILE Social History Tobacco Use Types Packs/Day Years Used Date Smoking Tobacco: Never Assessed Comments Unknown Sex and Gender Information Value Date Recorded Sex Assigned at Not on file Legal Sex Female 5:11 AM TECHNICAL ASST Gender Identity Not on file Sexual Orientation Not on file documented as of this encounter Plan of Treatment Not on file documented as of this encounter Visit Diagnoses Not on filedocumented in this encounter Care Teams Per Diem Nurse Relationship Specialty Start Date End Date Asher Hammonds MD PCP - General 10/04/12 documented as of this encounter
--- OUTSIDE RECORDS SUMMARY | 2025-03-14 07:38 | XMS_ITS | Encounter Summary ---
Author Organization [facility] Address [address] [place] [address] Care Team Providers Care Graining Operator Name Role Phone Asher Hammonds MD Primary Care Provider Unavailab le Encounter Details Date Type Department Care Team (Late st Contact Info) Description 07/27/2004 Outpatient Historical [facility] Medicine [place] [address] [place] [address] [address] [place] [address] Asher Hammonds MD NO ADDRESS ON FILE Social History Tobacco Use Types Packs/Day Years Used Date Smoking Tobacco: Never Assessed Comments Unknown Sex and Gender Information Value Date Recorded Sex Assigned at Not on file Legal Sex Female 5:11 AM MOLD YARD CRANE OPERATOR Gender Identity Not on file Sexual Orientation Not on file documented as of this encounter Plan of Treatment Not on file documented as of this encounter Visit Diagnoses Not on filedocumented in this encounter Care Teams Graining Operator Relationship Specialty Start Date End Date Asher Hammonds MD PCP - General 10/04/12 documented as of this encounter
--- OUTSIDE RECORDS SUMMARY | 2025-03-14 07:38 | XMS_ITS | Encounter Summary ---
Author Organization [facility] Address [address] [place] [address] Care Team Providers Care Fountain Jerk Name Role Phone Asher Hammonds MD Primary Care Provider Unavailab le Encounter Details Date Type Department Care Team (Late st Contact Info) Description 09/27/2006 Orders Only [facility] Medicine [place] [address] [facility] [address] [place] [address] Asher Hammonds MD NO ADDRESS ON FILE Social History Tobacco Use Types Packs/Day Years Used Date Smoking Tobacco: Never Assessed Comments Unknown Sex and Gender Information Value Date Recorded Sex Assigned at Not on file Legal 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 BLOOD PRESSURE: 130/76. Right Arm Sitting PULSE: 72. Right Radial, Regular RESPIRATIONS: 16. TEMPERATURE: 97.9??f. Tympanic HEIGHT: 5ft2in. ALLERGIES: Allergies were reviewed. MEDICATIONS: Medications may have changed. Dr rai review medications. CHIEF COMPLAINT Patient here for medication management.--anxiety attack over the weekend. HISTORY: HISTORY: 300.00-ANXIETY The condition remains stable. No complications noted from the medication presently being used. The patient's symptoms of feeling depressed have not changed, symptoms of elevated mood have not changed, has a change in sleep pattern, has anxiety. No recent laboratory work done. 300.2-RRLBHVGAZ-SZXPDXFDKY DISORDERS The condition remains stable. The patient denies excessive crying, a persistent feeling of sadness and hopelessness, and fatigue. No complications noted from the medication presently being used. 780.50-SLEEP DISTURBANCE UNSPECIFIED --stable-- 780.52-INSOMNIA The insomnia has worsened. No complications noted from the medication presently being used. 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 and needs to be [...] COATED 20 MG, one daily as directed FIORICET ORAL TABLET 50-325-40 MG, 1 Every Six Hours, As Needed HYDROXYZINE HCL ORAL TABLET 50 MG, 2 Every Day At Bedtime INDOCIN SR ORAL CAPSULE CONTROLLED RELEASE 75 MG, one twice daily INDERAL LA ORAL CAPSULE 24 HR 80 MG, 1 Every Day At Bedtime XANAX ORAL TABLET 2 MG, 1 Every Day At Bedtime DOXYCYCLINE HYCLATE ORAL CAPSULE CONVENTIONAL 100 MG, 1 Two Times A Day LEXAPRO ORAL TABLET 10 MG, 1 Two Times A Day RISPERDAL ORAL TABLET 0.5 MG, one in the am RISPERDAL ORAL TABLET 2 MG, 1 Every Day At Bedtime, As Needed CURRENT ALLERGY LIST: MACROBID PCN [...] DISCUSSED SMOKING: non smoker. OCCUPATION: . OCCUPATION: [employer] ALCOHOL: DISCUSSED ALCOHOL: social. ILLICIT DRUG USE: [...] cyanosis, inflammation, or ischemia. HEAD AND NECK: SPINE/RIBS/PELVIS: No kyphosis, lordosis, full range of motion. Normal stability, strength and tone. EXTREMITIES: BILATERAL LOWER: No misalignment or tenderness. Full range of motion. Normal stability, strength and tone. ASSESSMENT/PLAN: 300.00-ANXIETY ASSESSMENT: The patient's anxiety remains stable. MEDICATIONS: XANAX ORAL TABLET 2 MG, 1 Every Day At Bedtime, 60 Dispensed, 30 Duration/Days Supply, status: CONTINUED, 08/08/2006. 300.4-NEUROTIC DISORDERS ASSESSMENT: MEDICATIONS: LEXAPRO ORAL TABLET 10 MG, 1 Two Times A Day, 60 Dispensed, 5 Fills, 30 Duration/Days Supply, status: CONTINUED, 08/16/2006. SEROQUEL ORAL TABLET 100 MG, 1 Two Times A Day, 60 Dispensed, 30 Duration/Days Supply, status: NEW PRESCRIPTION, 09/28/2006. 530.81-GASTROESOPHAGEAL REFLUX (GERD) ASSESSMENT: The patient's reflux esophagitis continues to remain stable. MEDICATIONS: ACIPHEX ORAL TABLET ENTERIC COATED 20 MG, one daily as directed, 30 Dispensed, status: NEW PRESCRIPTION, 06/13/2006. 780.52-INSOMNIA ASSESSMENT: The patient's insomnia continues to remain stable. MEDICATIONS: INDERAL LA ORAL CAPSULE 24 HR 80 MG, 1 Every Day At Bedtime, 30 Dispensed, 11 Fills, 30 Duration/Days Supply, status: CONTINUED, 09/27/2006. CLINICAL GUIDELINES: 784.0-HEADACHE ASSESSMENT: The patient's headaches have not changed. Will not change medication, continue to monitor for complications. MEDICATIONS: FIORICET ORAL TABLET 50-325-40 MG, 1 Every Six Hours, As Needed, 60 Dispensed, 1 Fills, 30 Duration/Days Supply, status: CONTINUED, 09/27/2006. RETURN VISIT: Patient instructed to return in 2 months. Electronically Signed by: Asher Hammonds MD on Monday, October 02, 2006 documented in this encounter Plan of Treatment Not on file documented as of this encounter Visit Diagnoses Not on filedocumented in this encounter Care Teams Fountain Jerk Relationship Specialty Start Date End Date Asher Hammonds MD PCP - General 10/04/12 documented as of this encounter
--- OUTSIDE RECORDS SUMMARY | 2025-03-14 07:38 | XMS_ITS | Encounter Summary ---
Author Organization [facility] Address 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
--- OUTSIDE RECORDS SUMMARY | 2025-03-14 07:38 | XMS_ITS | Encounter Summary ---
Author Organization [facility] Address [address] [place] [address] Care Team Providers Care Physical Science Technician Name Role Phone Asher Hammonds MD Primary Care Provider Unavailab le Encounter Details Date Type Department Care Team (Late st Contact Info) Description 08/03/2004 Outpatient Historical [facility] Medicine [place] [address] [place] [address] [address] [place] [address] Asher Hammonds MD NO ADDRESS ON FILE Social History Tobacco Use Types Packs/Day Years Used Date Smoking Tobacco: Never Assessed Comments Unknown Sex and Gender Information Value Date Recorded Sex Assigned at Not on file 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
--- OUTSIDE RECORDS SUMMARY | 2025-03-14 07:38 | XMS_ITS | Encounter Summary ---
Author Organization [facility] Address [address] [place] [address] Care Team Providers Care Oral And Maxillofacial Surgery Name Role Phone Asher Hammonds MD Primary Care Provider Unavailab le Encounter Details Date Type Department Care Team (Late st Contact Info) Description 05/25/2004 Outpatient Historical [facility] Medicine [place] [address] [place] [address] [address] [place] [address] Asher Hammonds MD NO ADDRESS ON FILE Social History Tobacco Use Types Packs/Day Years Used Date Smoking Tobacco: Never Assessed Comments Unknown Sex and Gender Information Value Date Recorded Sex Assigned at Not on file 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
--- OUTSIDE RECORDS SUMMARY | 2025-03-14 07:38 | XMS_ITS | Encounter Summary ---
Author Organization [facility] Address [address] [place] [address] Care Team Providers Care Mammal Keeper Name Role Phone Asher Hammonds MD Primary Care Provider Unavailab le Encounter Details Date Type Department Care Team (Late st Contact Info) Description 07/06/2004 Outpatient Historical [facility] Medicine [place] [address] [address] [address] [place] [address] Asher Hammonds MD NO ADDRESS ON FILE Social History Tobacco Use Types Packs/Day Years Used Date Smoking Tobacco: Never Assessed Comments Unknown Sex and Gender Information Value Date Recorded Sex Assigned at Not on file Legal 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
--- OUTSIDE RECORDS SUMMARY | 2025-03-14 07:38 | XMS_ITS | Encounter Summary ---
Author Organization [facility] Address [address] [place] [address] Care Team Providers Care Recorder Gravity Prospecting Name Role Phone Asher Hammonds MD Primary Care Provider Unavailab le Encounter Details Date Type Department Care Team (Late st Contact Info) Description 04/13/2004 Outpatient Historical [facility] Medicine [place] [address] [place] [address] [address] [place] [address] Asher Hammonds MD NO ADDRESS ON FILE Social History Tobacco Use Types Packs/Day Years Used Date Smoking Tobacco: Never Assessed Comments Unknown Sex and Gender Information Value Date Recorded Sex Assigned at Not on file Legal Sex Female 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
--- OUTSIDE RECORDS SUMMARY | 2025-03-14 07:38 | XMS_ITS | Encounter Summary ---
Author Organization [facility] Address [address] [place] [address] Care Team Providers Care Electron Beam Machine Welder Setter Name Role Phone Asher Hammonds MD Primary Care Provider Unavailab le Encounter Details Date Type Department Care Team (Late st Contact Info) Description 07/31/2004 Outpatient Historical [facility] Medicine [place] [address] [place] [address] [address] [place] [address] Asher Hammonds MD NO ADDRESS ON FILE Social History Tobacco Use Types Packs/Day Years Used Date Smoking Tobacco: Never Assessed Comments Unknown Sex and Gender Information Value Date Recorded Sex Assigned at Not on file 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
--- OUTSIDE RECORDS SUMMARY | 2025-03-14 07:38 | XMS_ITS | Encounter Summary ---
Author Organization [facility] Address [address] [place] [address] Care Team Providers Care Extrusion Process Operator Name Role Phone Asher Hammonds MD Primary Care Provider Unavailab le Encounter Details Date Type Department Care Team (Late st Contact Info) Description 11/27/2006 Emergency [facility] Gonzalez Frankel MD [address] [facility] 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 Gender Identity Not on file Sexual Orientation Not on file documented as of this encounter Plan of Treatment Not on file documented as of this encounter Procedures Procedure Name Priority Date/Time Associated Diagnosis Comments DRUG SCREEN, URINE Routine 11/27/2006 4: 28 PM CDT ETHANOL LEVEL Routine 11/27/2006 4:15 PM CDT ACETAMINOPHEN LEVEL Routine 11/27/2006 4 :15 PM CDT SALICYLATE LEVEL Routine 11/27/2006 4:15 PM CDT documented in this encounter Results * DRUG SCREEN, URINE (11/27/2006 4:28 PM CDT) COMMENT, TOXICOLOGY See Separate Comment INTERFACE SYSTEM Comment: The urine sample was not handled as a legal specimen and was received wi thout a chain of custody. The results should be used only for medical purposes. A confirmation is recommended for all presumptive positive results. A negative result indicates the analyte, if present, is below the screening threshold. Drug Ref. Range Screening Threshold Amphetamines Negative 500 ng/mL Barbiturates Negative 200 ng/mL Benzodiazepines Negative 100 ng/mL Cannabinoids Negative 50 ng/mL Cocaine Metabolite Negative 300 ng/mL Opiate Negative 300 ng/mL Phencyclidine Negative 25 ng/mL AMPHETAMINE QUAL, URINE Negative INTERFACE SYSTEM BARBITURATE QUAL, URINE Negative INTERFACE SYSTEM BENZODIAZEPINE QUAL, URINE Presumptive Positive INTERFACE SYSTEM CANNABINOIDS QUAL, URINE Negative INTERFACE SYSTEM COCAINE QUAL URINE Negative INTERFACE SYSTEM OPIATE QUAL, URINE Negative INTERFACE SYSTEM PCP QUAL, URINE Negative INTE RFACE SYSTEM 11/27/2006 4:28 PM CDT Result [facility] Gonzalez Marsh MD URINE ORDERABLES Edited Performing Organization Address [facility] Phone Number INTERFACE SYSTEM Refer to clinic/hospital department * ETHANOL (11/27/2006 4:15 PM CDT) ETHANOL <10 <=10 mg/dL INTERFACE SYSTEM 11/27/2006 4:15 PM CDT Result [facility] Gonzalez Marsh MD CHEMISTRY ORDERABLES Edited Performing Organization Address [facility] Phone Number INTERFACE SYSTEM Refer to clinic/hospital department * (ABNORMAL) SALICYLATE LEVEL (11/27/2006 4:15 PM CDT) SALICYLATE LEVEL <0.3(L) 2.0 - 25.0 mg/dL INTERFACE SYSTEM 11/27/2006 4:15 PM CDT Gonzalez Marsh MD CHEMISTRY ORDERABLES Edited Performing Organization Address [facility] Phone Number INTERFACE SYSTEM Refer to clinic/hospital department * (ABNORMAL) ACETAMINOPHEN LEVEL (11/27/2006 4:15 PM CDT) ACETAMINOPHEN LEVEL 27.6(H) 10.0 - 20.0 ug/mL INTERFACE SYSTEM 11/27/2006 4:15 PM CDT us Gonzalez Marsh MD CHEMISTRY ORDERABLES Edited INTERFACE SYSTEM Refer to clinic/hospital department documented in this encounter Visit Diagnoses Diagnosis Poisoning by aromatic analgesics, not elsewhere classified(965.4)- Primary Poisoning by aromatic analgesics, not elsewhere classified documented in this encounter Care Teams Extrusion Process Operator Relationship Specialty Start Date End Date Asher Hammonds MD PCP - General 10/04/12 documented as of this encounter
--- OUTSIDE RECORDS SUMMARY | 2025-03-14 07:38 | XMS_ITS | Encounter Summary ---
Author Organization [facility] Address [address] [place] [address] Care Team Providers Care Plastic Surgery Nurse Name Role Phone Asher Hammonds MD Primary Care Provider Unavailab le Encounter Details Date Type Department Care Team (Late st Contact Info) Description 09/28/2004 Outpatient Historical [facility] Medicine [place] [address] [place] [address] [address] [place] [address] Asher Hammonds MD NO ADDRESS ON FILE Social History Tobacco Use Types Packs/Day Years Used Date Smoking Tobacco: Never Assessed Comments Unknown Sex and Gender Information Value Date Recorded Sex Assigned at Not on file Legal Sex Female 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 Gender Identity Not on file Sexual Orientation Not on file documented as of this encounter Last Filed Vital Signs Vital Sign Reading Time Taken Comments Blood Pressure 138/70 09/28/2004 4:15 PM TELECOMMUNICATIONS NETWORK PLANNER Pulse 80 09/28/2004 4:15 PM TELECOMMUNICATIONS NETWORK PLANNER Temperature 37.1 C (98.7 F) 09/28/2004 4:15 PM TELECOMMUNICATIONS NETWORK PLANNER Respiratory Rate 16 09/28/2004 4:15 PM TELECOMMUNICATIONS NETWORK PLANNER Oxygen Saturation - - Inhaled Oxygen Concentration - - Weight 76.7 kg (169 lb) 09/28/2004 4:15 PM TELECOMMUNICATIONS NETWORK PLANNER Height 157.5 cm (5' 2) 09/28/2004 4:15 PM TELECOMMUNICATIONS NETWORK PLANNER Body Mass Index 30.91 09/28/2004 4:15 PM TELECOMMUNICATIONS NETWORK PLANNER documented in this encounter Plan of Treatment Not on file documented as of this encounter Visit Diagnoses Not on filedocumented in this encounter Care Teams Plastic Surgery Nurse Relationship Specialty Start Date End Date Asher Hammonds MD PCP - General 10/04/12 documented as of this encounter
--- OUTSIDE RECORDS SUMMARY | 2025-03-14 07:38 | XMS_ITS | Encounter Summary ---
Author Organization [facility] Address [address] [place] [address] Care Team Providers Care Kennel Aide Name Role Phone Asher Hammonds MD Primary Care Provider Unavailab le Encounter Details Date Type Department Care Team (Late st Contact Info) Description 09/05/2005 Outpatient Historical [facility] Medicine [place] [address] [place] [address] [address] [place] [address] Asher Hammonds MD NO ADDRESS ON FILE Social History Tobacco Use Types Packs/Day Years Used Date Smoking Tobacco: Never Assessed Comments Unknown Sex and Gender Information Value Date Recorded Sex Assigned at Not on file Legal Sex Female 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
--- OUTSIDE RECORDS SUMMARY | 2025-03-14 07:38 | XMS_ITS | Encounter Summary ---
Author Organization [facility] Address [address] [place] [address] Care Team Providers Care House Superintendent Name Role Phone Asher Hammonds MD Primary Care Provider Unavailab le Encounter Details Date Type Department Care Team (Late st Contact Info) Description 07/06/2004 Outpatient Historical [facility] Medicine [place] [address] [place] [address] [address] [place] [address] Asher Hammonds MD NO ADDRESS ON FILE Social History Tobacco Use Types Packs/Day Years Used Date Smoking Tobacco: Never Assessed Comments Unknown Sex and Gender Information Value Date Recorded Sex Assigned at Not on file Legal 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
--- OUTSIDE RECORDS SUMMARY | 2025-03-14 07:38 | XMS_ITS | Encounter Summary ---
Author Organization [employer] Address [address] [place] [address] Care Team Providers Care Director Learning Name Role Phone Asher Hammonds MD Primary Care Provider Unavailab le Encounter Details Date Type Department Care Team (Latest Contact Info) Description 09/02/2005 Inpatient Historical [facility] Olga Lidia Toledo MD Jean-Claude Bosch MD [address] [place] [id number] [place]ZOD[place] (Primary Dx) Social History Tobacco Use Types Packs/Day Years Used Date Smoking Tobacco: Never Assessed Comments Unknown Sex and Gender Information Value Date Recorded Sex Assigned at Not on file Legal Sex Female 5:11 AM NATURAL GAS BASIS TRADER Gender Identity Not on file Sexual Orientation Not on file documented as of this encounter Plan of Treatment Not on file documented as of this encounter Procedures Procedure Name Priority Date/Time Associated Diagnosis Comments PHOSPHORUS Routine 09/03/2005 5:00 AM NATURAL GAS BASIS TRADER MAGNESIUM LEVEL Routine 09/03/2005 5:00 AM NATURAL GAS BASIS TRADER ACETAMINOPHEN LEVEL Routine 09/03/2005 5 :00 AM NATURAL GAS BASIS TRADER HEPATIC FUNCTION PANEL Routine 6 5:00 AM NATURAL GAS BASIS TRADER BASIC METABOLIC PANEL Routine 09/03/2005 5:00 AM NATURAL GAS BASIS TRADER CBC WITH DIFFERENTIAL Routine 09/02/2005 8:30 PM NATURAL GAS BASIS TRADER CBC WITH DIFFERENTIAL Routine 09/02/2005 8:30 PM NATURAL GAS BASIS TRADER HCG QUANTITATIVE, BLOOD Routine 09/02/2005 8:30 PM NATURAL GAS BASIS TRADER ETHANOL LEVEL Routine 09/02/2005 8:30 PM NATURAL GAS BASIS TRADER ACETAMINOPHEN LEVEL Routine 09/02/2005 8 :30 PM NATURAL GAS BASIS TRADER SALICYLATE LEVEL Routine 09/02/2005 8:30 PM NATURAL GAS BASIS TRADER DRUG SCREEN, URINE Routine 09/02/2005 8: 29 PM NATURAL GAS BASIS TRADER URINALYSIS W/REFLEX MICROSCOPIC Routine 09/02/2005 8:29 PM NATURAL GAS BASIS TRADER documented in this encounter Results * (ABNORMAL) ACETAMINOPHEN LEVEL (09/03/2005 5:00 AM NATURAL GAS BASIS TRADER) ACETAMINOPHEN LEVEL 1.2(L) 10.0 - 20.0 ug/mL INTERFACE SYSTEM Comment: Toxic acetaminophen concentrations are dependent on time since ingestion and chronicity of use -- see Rumack nomogram. The 4 hour post ingestion toxic threshold: >150 mg/L (ug/mL). 09/03/2005 5:00 AM NATURAL GAS BASIS TRADER Bran Solis CHEMISTRY ORDERABLES Final Resul t INTERFACE SYSTEM Refer to clinic/hospital department * (ABNORMAL) HEPATIC FUNCTION PANEL (09/03/2005 5:00 AM NATURAL GAS BASIS TRADER) AST 19 12 - 32 U/L INTERFACE SYSTEM ALKALINE PHOSPHATASE 59 35 - 104 U/L INTERFACE SYSTEM BILIRUBIN TOTAL 0.1(L) 0.2 - 1.0 mg/dL INTERFACE SYSTEM ALBUMIN 3.9 3.4 - 4.8 g/dL INTERFACE SYSTEM TOTAL PROTEIN 6.5 6.3 - 8.6 g/dL INTERFACE SYSTEM ALT 16 0 - 31 U/L INTERFACE SYSTEM BILIRUBIN DIRECT 0.1 0.0 - 0.3 mg/dL INTERFACE SYSTEM 09/03/2005 5:00 AM NATURAL GAS BASIS TRADER Bran Shopseen CHEMISTRY ORDERABLES Final Resul t Performing Organization Address [facility] Phone Number INTERFACE SYSTEM Refer to clinic/hospital department * PHOSPHORUS (09/03/2005 5:00 AM NATURAL GAS BASIS TRADER) PHOSPHORUS 4.0 2.5 - 4.5 mg/dL INTERFACE SYSTEM 09/03/2005 5:00 AM NATURAL GAS BASIS TRADER Bran Cortesi CHEMISTRY ORDERABLES Final Resul t Performing Organization Address [facility] Phone Number INTERFACE SYSTEM Refer to clinic/hospital department * MAGNESIUM LEVEL (09/03/2005 5:00 AM NATURAL GAS BASIS TRADER) MAGNESIUM 1.9 1.5 - 2.5 mg/dL INTERFACE SYSTEM 09/03/2005 5:00 AM NATURAL GAS BASIS TRADER Bran Cortesi CHEMISTRY ORDERABLES Final Resul t Performing Organization Address [facility] Phone Number INTERFACE SYSTEM Refer to clinic/hospital department * (ABNORMAL) BASIC METABOLIC PANEL (09/03/2005 5:00 AM NATURAL GAS BASIS TRADER) GLUCOSE 82 65 - 109 mg/dL INTERFACE SYSTEM CREATININE 0.7 0.4 - 1.2 mg/dL INTERFACE SYSTEM CALCIUM 8.7 8.6 - 10.2 mg/dL INTERFACE SYSTEM BUN 4(L) 6 - 20 mg/dL INTERFACE SYSTEM SODIUM 142 135 - 145 mmol/L INTERFACE SYSTEM POTASSIUM 3.3(L) 3.5 - 4.9 mmol/L INTERFACE SYSTEM CHLORIDE 107 96 - 108 mmol/L INTERFACE SYSTEM CO2 28 22 - 30 mmol/L INTERFACE SYSTEM 09/03/2005 5:00 AM NATURAL GAS BASIS TRADER Bran Shopseen CHEMISTRY ORDERABLES Final Resul t Performing Organization Address [facility] Phone Number INTERFACE SYSTEM Refer to clinic/hospital department * HCG QUANTITATIVE, BLOOD (09/02/2005 8:30 PM NATURAL GAS BASIS TRADER) HCG QUANT, BLOOD <5 0 - 5 mIU/mL INTERFACE SYSTEM Comment: Result of 5 - 25 mIU/mL is indeterminant for , repeat of test recommemded in 48 hours. Reference Range: Gestational Age: 3 Weeks 5.8 - 71.2 mIU/mL 4 Weeks 9.5 - 750 mIU/mL 5 Weeks 217 - 7138 mIU/mL 6 Weeks 158 - 31,795 mIU/mL 7 Weeks 3697 - 163,563 mIU/mL 8 Weeks 32,065 - 149,571 mIU/mL 9 Weeks 63,803 - 151,410 mIU/mL 10 Weeks 46,509 - 186,977 mIU/mL 12 Weeks 27,832 - 210,612 mIU/mL 14 Weeks 13,950 - 62,530 mIU/mL 15 Weeks 12,039 - 70,971 mIU/mL 16 Weeks 9040 - 56,451 mIU/mL 17 Weeks 8175 - 55,868 mIU/mL 18 Weeks 8099 - 58,176 mIU/mL Heterophile antibodies and other interfering substances in the serum of some patients may cause a false-positive result in this assay. Before making a diagnosis of malignancy or ectopic ,the result of thi s test should be confirmed with a urine HCG test and correlated with other clinical evidence. 09/02/2005 8:30 PM NATURAL GAS BASIS TRADER Preston Kerns DO CHEMISTRY ORDERABLES Final R esult INTERFACE SYSTEM Refer to clinic/hospital department * CBC WITH DIFFERENTIAL (09/02/2005 8:30 PM NATURAL GAS BASIS TRADER) NEUTROPHILS 67 45 - 70 % INTERFAC E SYSTEM LYMPHOCYTES 23 16 - 45 % INTERFAC E SYSTEM MONOCYTES 7 3 - 13 % INTERFACE SYSTEM EOSINOPHILS 2 0 - 7 % INTERFAC E SYSTEM BASOPHILS 1 0 - 2 % INTERFACE SYSTEM NEUTROPHIL ABSOLUTE 4.66 1.90 - 7.00 K/uL INTERFACE SYSTEM LYMPHOCYTE ABSOLUTE 1.62 0.70 - 4.50 K/uL INTERFACE SYSTEM MONOCYTE ABSOLUTE 0.52 0.10 - 1.30 K/uL INTERFACE SYSTEM EOSINOPHIL ABSOLUTE 0.14 0.00 - 0.70 K/uL INTERFACE SYSTEM BASOPHILS ABSOLUTE 0.06 0.00 - 0.20 K/uL INTERFACE SYSTEM 09/02/2005 8:30 PM NATURAL GAS BASIS TRADER Preston Kerns DO HEMATOLOGY ORDERABLES Final Result Performing Organization Address [facility] Phone Number INTERFACE SYSTEM Refer to clinic/hospital department * (ABNORMAL) CBC WITH DIFFERENTIAL (09/02/2005 8:30 PM NATURAL GAS BASIS TRADER) WBC 7.0 4.0 - 9.8 K/uL INTERFACE SYSTEM RBC 4.50 3.90 - 4.90 M/uL INTERFACE SYSTEM HEMOGLOBIN 12.5 11.8 - 14.8 g/dL INTERFACE SYSTEM HEMATOCRIT 37.8 35.5 - 44.0 % INTERFACE SYSTEM MCV 84.0 82.0 - 99.0 fL INTERFACE SYSTEM MCH 27.8 27.2 - 32.6 pg INTERFACE SYSTEM MCHC 33.1 31.5 - 35.5 % INTERFACE SYSTEM RDW 12.8 11.5 - 14.5 % INTERFACE SYSTEM RDW-STDEV 38.8 37.1 - 48.7 fL INTERFACE SYSTEM PLATELETS 423(H) 140 - 350 K/uL INTERFACE SYSTEM MPV 9.2(L) 9.3 - 12.4 fL INTERFACE SYSTEM 09/02/2005 8:30 PM NATURAL GAS BASIS TRADER Preston Kerns DO HEMATOLOGY ORDERABLES Final Result Performing Organization Address [facility] Number INTERFACE SYSTEM Refer to clinic/hospital department * (ABNORMAL) SALICYLATE LEVEL (09/02/2005 8:30 PM NATURAL GAS BASIS TRADER) SALICYLATE LEVEL <0.2(L) 2.0 - 25.0 mg/dL INTERFACE SYSTEM 09/02/2005 8:30 PM NATURAL GAS BASIS TRADER Preston Kerns DO CHEMISTRY ORDERABLES Final R esult Performing Organization Address [facility] Phone Number INTERFACE SYSTEM Refer to clinic/hospital department * ACETAMINOPHEN LEVEL (09/02/2005 8:30 PM NATURAL GAS BASIS TRADER) ACETAMINOPHEN LEVEL 11.6 10.0 - 20.0 ug/mL INTERFACE SYSTEM Comment: Toxic acetaminophen concentrations are dependent on time since ingestion and chronicity of use -- see Rumack nomogram. The 4 hour post ingestion toxic threshold: >150 mg/L (ug/mL). 09/02/2005 8:30 PM NATURAL GAS BASIS TRADER PrestonFor [employer] DO CHEMISTRY ORDERABLES Final R esult Performing Organization Address [facility] de Phone Number INTERFACE SYSTEM Refer to clinic/hospital department * ETHANOL LEVEL (09/02/2005 8:30 PM NATURAL GAS BASIS TRADER) ETHANOL <10 mg/dL INTERFACE SYSTEM Comment: Reference Range: Less than 10 mg/dL 09/02/2005 8:30 PM NATURAL GAS BASIS TRADER Preston Apparcando CHEMISTRY ORDERABLES Final R esult Performing Organization Address [facility] de Phone Number INTERFACE SYSTEM Refer to clinic/hospital department * DRUG SCREEN, URINE (09/02/2005 8:29 PM NATURAL GAS BASIS TRADER) COMMENT, TOXICOLOGY See Separate Comment INTERFACE SYSTEM [...] drugs of abuse are available on the [facility] LoveThis Intranet at: [email or web address] Select: Drugs of Abuse ? [facility] To inquire about any potential cross-reactivity of [...] PCP QUAL, URINE Negative INTE RFACE SYSTEM 09/02/2005 8:29 PM NATURAL GAS BASIS TRADER Preston Tambone DO URINE ORDERABLES Final Resul t Performing Organization Address [facility] Phone Number INTERFACE SYSTEM Refer to clinic/hospital department * (ABNORMAL) URINALYSIS (09/02/2005 8:29 PM NATURAL GAS BASIS TRADER) COLOR UA Colorless INTERFACE SYSTEM CLARITY UA Clear Clear INTERFACE SYSTEM SPECIFIC GRAVITY UA <1.005(L) 1.001 - 1.035 INTERFACE SYSTEM Comment:Verified by repeat a nalysis. PH UA 6.5 5.0 - 8.0 INTERFACE SYSTEM LEUKOCYTE ESTERASE UA Negative Negative INTERFACE SYSTEM NITRITE UA Negative Negative INTERFACE SYSTEM PROTEIN UA Trace(A) Negative INTERFACE SYSTEM GLUCOSE UA Negative Negative INTERFACE SYSTEM KETONES UA Negative Negative INTERFACE SYSTEM UROBILINOGEN UA <1 <1 mg/dL INTE RFACE SYSTEM BILIRUBIN UA Negative Negative INTERFA CE SYSTEM BLOOD UA Negative Negative INTERFACE SYSTEM 09/02/2005 8:29 PM NATURAL GAS BASIS TRADER Preston Jossebone DO URINE ORDERABLES Final Resul t Performing Organization Address [facility] Phone Number INTERFACE SYSTEM Refer to clinic/hospital department documented in this encounter Visit Diagnoses Diagnosis Poisoning by benzodiazepine-based tranquilizers(969.4)- Primary Poisoning by benzodiazepine-based tranquilizers documented in this encounter Care Teams Director Learning Relationship Specialty Start Date End Date Asher Hammonds MD PCP - General 10/04/12 documented as of this encounter
--- OUTSIDE RECORDS SUMMARY | 2025-03-14 07:38 | XMS_ITS | Encounter Summary ---
Author Organization [employer] Address [address] [place] [address] Care Team Providers Care Green Ware Caster Name Role Phone Asher Hammonds MD Primary Care Provider Unavailab le Encounter Details Date Type Department Care Team (Late st Contact Info) Description 09/03/2005 Outpatient Historical [facility] Support Serv. (Adt Cardiology-[facility]) [address] [place] [address] Sulaiman Gordon MD NO ADDRESS ON FILE Social History Tobacco Use Types Packs/Day Years Used Date Smoking Tobacco: Never Assessed Comments Unknown Sex and Gender Information Value Date Recorded Sex Assigned at Not on file Legal Sex Female 5:11 AM CARDIAC CARE NURSE Gender Identity Not on file Sexual Orientation Not on file documented as of this encounter Plan of Treatment Not on file documented as of this encounter Visit Diagnoses Not on filedocumented in this encounter Care Teams Green Ware Caster Relationship Specialty Start Date End Date Asher Hammonds MD PCP - General 10/04/12 documented as of this encounter
--- OUTSIDE RECORDS SUMMARY | 2025-03-14 07:38 | XMS_ITS | Encounter Summary ---
Author Organization [facility] Address [address] [place] [address] Care Team Providers Care Construction Millwright Name Role Phone Asher Hammonds MD Primary Care Provider Unavailab le Encounter Details Date Type Department Care Team (Late st Contact Info) Description 08/16/2006 Outpatient Historical [facility] Medicine [place] [address] [place] [address] [address] [place] [address] Asher Hammonds MD NO ADDRESS ON FILE Social History Tobacco Use Types Packs/Day Years Used Date Smoking Tobacco: Never Assessed Comments Unknown Sex and Gender Information Value Date Recorded Sex Assigned at Not on file Legal Sex Female 5:11 AM BILINGUAL PATIENT SUPPORT CASEWORKER Gender Identity Not on file Sexual Orientation Not on file documented as of this encounter Plan of Treatment Not on file documented as of this encounter Visit Diagnoses Not on filedocumented in this encounter Care Teams Construction Millwright Relationship Specialty Start Date End Date Asher Hammonds MD PCP - General 10/04/12 documented as of this encounter
--- OUTSIDE RECORDS SUMMARY | 2025-03-14 07:38 | XMS_ITS | Encounter Summary ---
Author Organization [facility] Address [address] [place] [address] Care Team Providers Care Medical Terminologist Name Role Phone Asher Hammonds MD Primary Care Provider Unavailab le Encounter Details Date Type Department Care Team (Late st Contact Info) Description 08/02/2005 Outpatient Historical [facility] Medicine [place] [address] [place] [address] [address] [place] [address] Asher Hammonds MD NO ADDRESS ON FILE Social History Tobacco Use Types Packs/Day Years Used Date Smoking Tobacco: Never Assessed Comments Unknown Sex and Gender Information Value Date Recorded Sex Assigned at Not on file Legal Sex Female 5:11 AM RADIO EQUIPMENT INSTALLER Gender Identity Not on file Sexual Orientation Not on file documented as of this encounter Plan of Treatment Not on file documented as of this encounter Visit Diagnoses Not on filedocumented in this encounter Care Teams Medical Terminologist Relationship Specialty Start Date End Date Asher Hammonds MD PCP - General 10/04/12 documented as of this encounter
--- OUTSIDE RECORDS SUMMARY | 2025-03-14 07:38 | XMS_ITS | Encounter Summary ---
Author Organization [employer] Address [address] [place] [address] Care Team Providers Care Sign Painter Apprentice Name Role Phone Asher Hammonds MD Primary Care Provider Unavailab le Encounter Details Date Type Department Care Team (Late st Contact Info) Description 09/02/2005 Outpatient Historical [facility] Support Serv. (Adt Cardiology-[facility]) [address] [place] [address] Sulaiman Gordon MD NO ADDRESS ON FILE Social History Tobacco Use Types Packs/Day Years Used Date Smoking Tobacco: Never Assessed Comments Unknown Sex and Gender Information Value Date Recorded Sex Assigned at Not on file Legal Sex Female 5:11 AM PULVERIZER MILL OPERATOR Gender Identity Not on file Sexual Orientation Not on file documented as of this encounter Plan of Treatment Not on file documented as of this encounter Visit Diagnoses Not on filedocumented in this encounter Care Teams Sign Painter Apprentice Relationship Specialty Start Date End Date Asher Hammonds MD PCP - General 10/04/12 documented as of this encounter
--- OUTSIDE RECORDS SUMMARY | 2025-03-14 07:38 | XMS_ITS | Encounter Summary ---
Author Organization [facility] Address [address] [place] [address] Care Team Providers Care Utility Bill Collection Clerk Name Role Phone Asher Hammonds MD Primary Care Provider Unavailab le Encounter Details Date Type Department Care Team (Late st Contact Info) Description 10/11/2006 Orders Only [facility] Medicine [place] [address] [facility] [address] [place] [address] Asher Hammonds MD NO ADDRESS ON FILE Social History Tobacco Use Types Packs/Day Years Used Date Smoking Tobacco: Never Assessed Comments Unknown Sex and Gender Information Value Date Recorded Sex Assigned at Not on file Legal Sex Female 5:11 AM MANAGER HOSPITAL Gender Identity Not on file Sexual Orientation Not on file documented as of this encounter Progress Notes * Asher Hammonds MD - 12/28/2007 10:13 AM CDT TIME:01:37 pm PATIENT`S HOME PHONE: PATIENT`S WORK PHONE: PATIENT`S INSURANCE: WHO TOOK THE CALL: Zuri Quintanilla D GENERAL INFORMATION LAST VISIT: WHO CALLED: Patient called. CURRENT ALLERGY LIST: MACROBID PCN SULFA DRUGS PHARMACY NUMBER: [facility] PriceAdvice [phone] SECTION 1: REQUESTED ACTION [email or web address] 10/11/06 at 01:38 pm: MEDICATION REQUEST: MEDICATIONS: INDERAL LA ORAL CAPSULE 24 HR 80 MG, 1 Every Day At Bedtime, 30 Dispensed, 11 Fills, 30 Duration/Days Supply, status: CONTINUED, 09/27/2006. DOCTOR`S RESPONSE: edis 10/11/06 at 01:43 pm MEDICATIONS: INDERAL LA ORAL CAPSULE 24 HR 80 MG, 1 Every Day At Bedtime, 30 Dispensed, 11 Fills, 30 Duration/Days Supply, status: CONTINUED, 10/11/2006. FINAL ACTION: [email or web address] 10/11/06 at 01:43 pm Called pharmacy at 10/11/06 at 01:43 pm. Chloé. Electronically Signed by: Blanca Stahl on Wednesday, October 11, 2006 Electronically Signed by: Asher Hammonds MD on Sunday, October 22, 2006 documented in this encounter Plan of Treatment Not on file documented as of this encounter Visit Diagnoses Not on filedocumented in this encounter Care Teams Utility Bill Collection Clerk Relationship Specialty Start Date End Date Asher Hammonds MD PCP - General 10/04/12 documented as of this encounter
--- OUTSIDE RECORDS SUMMARY | 2025-03-14 07:38 | XMS_ITS | Encounter Summary ---
Author Organization [facility] Address [address] [place] [address] Care Team Providers Care Topography Technician Name Role Phone Asher Hammonds MD Primary Care Provider Unavailab le Encounter Details Date Type Department Care Team (Late st Contact Info) Description 10/19/2004 Outpatient Historical [facility] Medicine [place] [address] [place] [address] [address] [place] [address] Asher Hammonds MD NO ADDRESS ON FILE Social History Tobacco Use Types Packs/Day Years Used Date Smoking Tobacco: Never Assessed Comments Unknown Sex and Gender Information Value Date Recorded Sex Assigned at Not on file Legal Sex Female 5:11 AM HEALTH PROMOTER Gender Identity Not on file Sexual Orientation Not on file documented as of this encounter Last Filed Vital Signs Vital Sign Reading Time Taken Comments Blood Pressure 98/50 10/19/2004 4:00 PM HEALTH PROMOTER Pulse 64 10/19/2004 4:00 PM HEALTH PROMOTER Temperature 37.2 C (99 F) 10/19/2004 4:00 PM HEALTH PROMOTER Respiratory Rate 16 10/19/2004 4:00 PM HEALTH PROMOTER Oxygen Saturation - - Inhaled Oxygen Concentration - - Weight 78 kg (172 lb) 10/19/2004 4:00 PM HEALTH PROMOTER Height 157.5 cm (5' 2) 10/19/2004 4:00 PM HEALTH PROMOTER Body Mass Index 31.46 10/19/2004 4:00 PM HEALTH PROMOTER documented in this encounter Plan of Treatment Not on file documented as of this encounter Visit Diagnoses Not on filedocumented in this encounter Care Teams Topography Technician Relationship Specialty Start Date End Date Asher Hammonds MD PCP - General 10/04/12 documented as of this encounter
--- OUTSIDE RECORDS SUMMARY | 2025-03-14 07:38 | XMS_ITS | Encounter Summary ---
Author Organization [facility] Address [address] [place] [address] Care Team Providers Care Devulcanizer Head Name Role Phone Asher Hammonds MD Primary Care Provider Unavailab le Encounter Details Date Type Department Care Team (Late st Contact Info) Description 08/16/2006 Outpatient Historical [facility] Medicine [place] [address] [place] [address] [address] [place] [address] Asher Hammonds MD NO ADDRESS ON FILE Social History Tobacco Use Types Packs/Day Years Used Date Smoking Tobacco: Never Assessed Comments Unknown Sex and Gender Information Value Date Recorded Sex Assigned at Not on file Legal Sex Female 5:11 AM DEPUTY ATTORNEY GENERAL Gender Identity Not on file Sexual Orientation Not on file documented as of this encounter Plan of Treatment Not on file documented as of this encounter Visit Diagnoses Not on filedocumented in this encounter Care Teams Devulcanizer Head Relationship Specialty Start Date End Date Asher Hammonds MD PCP - General 10/04/12 documented as of this encounter
--- OUTSIDE RECORDS SUMMARY | 2025-03-14 07:39 | XMS_ITS | Encounter Summary ---
Author Organization [facility] Address [address] [place] [address] Care Team Providers Care Cma Name Role Phone Asher Hammonds MD Primary Care Provider Unavailab le Encounter Details Date Type Department Care Team (Late st Contact Info) Description 12/13/2004 Outpatient Historical [facility] Medicine [place] [address] [place] [address] [address] [place] [address] Asher Hammonds MD NO ADDRESS ON FILE Social History Tobacco Use Types Packs/Day Years Used Date Smoking Tobacco: Never Assessed Comments Unknown Sex and Gender Information Value Date Recorded Sex Assigned at Not on file Legal Sex Female 5:11 AM AUTOMATIC DEVELOPER Gender Identity Not on file Sexual Orientation Not on file documented as of this encounter Plan of Treatment Not on file documented as of this encounter Visit Diagnoses Not on filedocumented in this encounter Care Teams Cma Relationship Specialty Start Date End Date Asher Hammonds MD PCP - General 10/04/12 documented as of this encounter
--- OUTSIDE RECORDS SUMMARY | 2025-03-14 07:39 | XMS_ITS | Encounter Summary ---
Author Organization [facility] Address [address] [place] [address] Care Team Providers Care Assembler Equipment Name Role Phone Asher Hammonds MD Primary Care Provider Unavailab le Encounter Details Date Type Department Care Team (Late st Contact Info) Description 08/31/2004 Outpatient Historical [facility] Medicine [place] [address] [place] [address] [address] [place] [address] Asher Hammonds MD NO ADDRESS ON FILE Social History Tobacco Use Types Packs/Day Years Used Date Smoking Tobacco: Never Assessed Comments Unknown Sex and Gender Information Value Date Recorded Sex Assigned at Not on file Legal Sex Female 5:11 AM SENIOR COMMUNICATIONS ENGINEER Gender Identity Not on file Sexual Orientation Not on file documented as of this encounter Last Filed Vital Signs Vital Sign Reading Time Taken Comments Blood Pressure 130/78 08/31/2004 3:30 PM SENIOR COMMUNICATIONS ENGINEER Pulse 88 08/31/2004 3:30 PM SENIOR COMMUNICATIONS ENGINEER Temperature 37.1 C (98.7 F) 08/31/2004 3:30 PM SENIOR COMMUNICATIONS ENGINEER Respiratory Rate 16 08/31/2004 3:30 PM SENIOR COMMUNICATIONS ENGINEER Oxygen Saturation - - Inhaled Oxygen Concentration - - Weight 78.9 kg (174 lb) 08/31/2004 3:30 PM SENIOR COMMUNICATIONS ENGINEER Height 152.4 cm (5') 08/31/2004 3:30 PM SENIOR COMMUNICATIONS ENGINEER Body Mass Index 33.98 08/31/2004 3:30 PM SENIOR COMMUNICATIONS ENGINEER documented in this encounter Plan of Treatment Not on file documented as of this encounter Visit Diagnoses Not on filedocumented in this encounter Care Teams Assembler Equipment Relationship Specialty Start Date End Date Asher Hammonds MD PCP - General 10/04/12 documented as of this encounter
--- OUTSIDE RECORDS SUMMARY | 2025-03-14 07:39 | XMS_ITS | Encounter Summary ---
Author Organization [facility] Address [address] [place] [address] Care Team Providers Care Assistant Teacher Primary Name Role Phone Asher Hammonds MD Primary Care Provider Unavailab le Encounter Details Date Type Department Care Team (Late st Contact Info) Description 11/09/2004 Outpatient Historical [facility] Medicine [place] [address] [place] [address] [address] [place] [address] Asher Hammonds MD NO ADDRESS ON FILE Social History Tobacco Use Types Packs/Day Years Used Date Smoking Tobacco: Never Assessed Comments Unknown Sex and Gender Information Value Date Recorded Sex Assigned at Not on file Legal Sex Female 5:11 AM HOT MILL WORKER Gender Identity Not on file Sexual Orientation Not on file documented as of this encounter Last Filed Vital Signs Vital Sign Reading Time Taken Comments Blood Pressure 100/58 11/09/2004 9:01 AM CDT Pulse 68 11/09/2004 9:01 AM CDT Temperature 36.9 C (98.4 F) 11/09/2004 9:01 AM CDT Respiratory Rate 16 11/09/2004 9:01 AM CDT Oxygen Saturation - - Inhaled Oxygen Concentration - - Weight 78.5 kg (173 lb) 11/09/2004 9:01 AM CDT Height 157.5 cm (5' 2) 11/09/2004 9:01 AM CDT Body Mass Index 31.64 11/09/2004 9:01 AM CDT documented in this encounter Plan of Treatment Not on file documented as of this encounter Visit Diagnoses Not on filedocumented in this encounter Care Teams Assistant Teacher Primary Relationship Specialty Start Date End Date Asher Hammonds MD PCP - General 10/04/12 documented as of this encounter
--- OUTSIDE RECORDS SUMMARY | 2025-03-14 07:39 | XMS_ITS | Encounter Summary ---
Author Organization [facility] Address [address] [place] [address] Care Team Providers Care Building Supervisor Name Role Phone Asher Hammonds MD Primary Care Provider Unavailab le Encounter Details Date Type Department Care Team (Late st Contact Info) Description 10/26/2006 Outpatient Historical [facility] Medicine [place] [address] [place] [address] [address] [place] [phone] Asher Hammonds MD NO ADDRESS ON FILE Social History Tobacco Use Types Packs/Day Years Used Date Smoking Tobacco: Never Assessed Comments Unknown Sex and Gender Information Value Date Recorded Sex Assigned at Not on file 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 Gender Identity Not on file Sexual Orientation Not on file documented as of this encounter Last Filed Vital Signs Vital Sign Reading Time Taken Comments Blood Pressure 110/78 10/26/2006 4:15 PM CDT Pulse 84 10/26/2006 4:15 PM CDT Temperature 37.2 C (98.9 F) 10/26/2006 4:15 PM CDT Respiratory Rate 16 10/26/2006 4:15 PM CDT Oxygen Saturation - - Inhaled Oxygen Concentration - - Weight 98 kg (216 lb) 10/26/2006 4:15 PM CDT Height 157.5 cm (5' 2) 10/26/2006 4:15 PM CDT Body Mass Index 39.51 10/26/2006 4:15 PM CDT documented in this encounter Plan of Treatment Not on file documented as of this encounter Visit Diagnoses Not on filedocumented in this encounter Care Teams Building Supervisor Relationship Specialty Start Date End Date Asher Hammonds MD PCP - General 10/04/12 documented as of this encounter
--- OUTSIDE RECORDS SUMMARY | 2025-03-14 07:39 | XMS_ITS | Encounter Summary ---
Author Organization [facility] Address [address] [place] [address] Care Team Providers Care Gamma Facilities Operator Name Role Phone Asher Hammonds MD Primary Care Provider Unavailab le Encounter Details Date Type Department Care Team (Late st Contact Info) Description 11/15/2004 Outpatient Historical [facility] Medicine [place] [address] [place] [address] [address] [place] [address] Asher Hammonds MD NO ADDRESS ON FILE Social History Tobacco Use Types Packs/Day Years Used Date Smoking Tobacco: Never Assessed Comments Unknown Sex and Gender Information Value Date Recorded Sex Assigned at Not on file 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 Gender Identity Not on file Sexual Orientation Not on file documented as of this encounter Last Filed Vital Signs Vital Sign Reading Time Taken Comments Blood Pressure 110/58 11/15/2004 4:15 PM CDT Pulse 80 11/15/2004 4:15 PM CDT Temperature 36.9 C (98.4 F) 11/15/2004 4:15 PM CDT Respiratory Rate 16 11/15/2004 4:15 PM CDT Oxygen Saturation - - Inhaled Oxygen Concentration - - Weight 78 kg (172 lb) 11/15/2004 4:15 PM CDT Height 157.5 cm (5' 2) 11/15/2004 4:15 PM CDT Body Mass Index 31.46 11/15/2004 4:15 PM CDT documented in this encounter Plan of Treatment Not on file documented as of this encounter Visit Diagnoses Not on filedocumented in this encounter Care Teams Gamma Facilities Operator Relationship Specialty Start Date End Date Asher Hammonds MD PCP - General 10/04/12 documented as of this encounter
--- OUTSIDE RECORDS SUMMARY | 2025-03-14 07:39 | XMS_ITS | Encounter Summary ---
Author Organization [facility] Address 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
--- OUTSIDE RECORDS SUMMARY | 2025-03-14 07:39 | XMS_ITS | Encounter Summary ---
Author Organization [facility] Address [address] [place] [address] Care Team Providers Care Environmental Health Nurse Name Role Phone Asher Hammonds MD Primary Care Provider Unavailab le Encounter Details Date Type Department Care Team (Late st Contact Info) Description 12/20/2004 Outpatient Historical [facility] Medicine [place] [address] [place] [address] [address] [place] [address] Asher Hammonds MD NO ADDRESS ON FILE Social History Tobacco Use Types Packs/Day Years Used Date Smoking Tobacco: Never Assessed Comments Unknown Sex and Gender Information Value Date Recorded Sex Assigned at Not on file 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
[2025-03-14 07:45] LABS: Hematocrit 35.5 % (35.0-49.0); Hemoglobin 11.9 g/dL (12.0-15.0); Mean Corpuscular HGB Conc 33.5 g/dL (32-36); Mean Corpuscular Hemoglobin 28.5 pg (27.0-31.0); Mean Corpuscular Volume 85.1 fL (78.0-102.0); Platelet Count Result 335 K/mm3 (150-420); Red Blood Count 4.17 M/mm3 (4.20-5.40); White Blood Count 9.4 K/mm3 (4.8-10.8)
[2025-03-14 07:54] LABS: Hemoglobin A1C 8.3 % (<5.7)
[2025-03-14 07:57] LABS: Alanine Aminotransferase 32 U/L (6-35); Albumin Level 4.6 g/dL (3.5-5.1); Alkaline Phosphatase 74 U/L (38-126); Anion Gap 7 mmol/L (4-12); Aspartate Amino Transferase 34 U/L (14-36); Bilirubin,Total 0.7 mg/dL (0.2-1.3); Blood Urea Nitrogen 19 mg/dL (7-17); Calcium 10.2 mg/dL (8.4-10.2); Carbon Dioxide 26 mmol/L (22-30); Chloride 104 mmol/L (98-107); Cholesterol 115 mg/dL (0-200); Estimated Glomerular Filt Rate > 60; Glucose 185 mg/dL (65-110); HDL Direct 56 mg/dL; Osmolality Calculated 291 mOsm/kg (285-295); Potassium 4.7 mmol/L (3.4-5.0); Sodium 137 mmol/L (137-145); Total Protein 6.8 g/dL (6.3-8.2); Triglycerides 97 mg/dL (<150)
[2025-03-14 08:28] LABS: Thyroid Stimulating Hormone 0.373 uIU/mL (0.465-4.680)
== END 2025-03-14 07:27 | disposition home or self-care (01) ==
LOC: CHSLAB 07:31
PROVIDERS: PCP Internal Medicine; Visit Provider Internal Medicine
DX: E11.9 Type 2 diabetes mellitus without complications (principal)
CPT/HCPCS: 36415; 80053; 80061; 83036; 84443; 85027